=== PATIENT | female | born 1945 | race Caucasian/White ===

== ENCOUNTER → 2018-10-05 09:36 | Outpatient (CLI) | payer OTHER, SELFPAY ==
[2018-10-05 10:06] LABS: Hematocrit 40.6 % (36-46); Hemoglobin 13.3 g/dL (12.0-16.0); Mean Corpuscular HGB Conc 32.7 % (30-36); Mean Corpuscular Hemoglobin 30.3 PG (26-34); Mean Corpuscular Volume 92.5 fL (80-100); Platelet Count 260 X10^3/uL (150-400); Red Blood Cell Count 4.39 X10^6/uL (4.0-5.2); Red Cell Distribution Width 13.8 % (11.6-14.8); White Blood Cell Count 5.1 X10^3/uL (4.5-11.0)
[2018-10-05 10:17] LABS: Hemoglobin A1C% w Est Avg Glu 6.4 % (4.0-6.0)
[2018-10-05 10:38] LABS: Alanine Aminotransferase 27 IU/L (9-52); Albumin 4.2 g/dL (3.5-5.0); Albumin Globulin Ratio 1.6 (1.0-2.8); Alkaline Phosphatase 84 U/L (38-126); Aspartate Aminotransferase 25 IU/L (14-36); Bilirubin Total 1.1 mg/dL (0.2-1.3); Blood Urea Nitrogen 24 mg/dL (7-17); Calcium 9.5 mg/dL (8.4-10.2); Carbon Dioxide 28 mmol/L (22-32); Chloride 105 mmol/L (98-107); Cholesterol 124 mg/dL (140-199); Estimated Glomerular Filt Rate > 60.0 mL/min (>60); Globulin 2.6 g/dL (1.7-4.1); Glucose 110 mg/dL (80-110); HDL Cholesterol 47 mg/dL (40-60); HEMOLYSIS < 15 (0-50); LDL Cholesterol Calculated 48 mg/dL (<100); Potassium 4.6 mmol/L (3.4-5.1); Sodium 143 mmol/L (137-145); Total Protein 6.8 g/dL (6.3-8.2); Triglycerides 143 mg/dL (35-150)
== END ==
PROVIDERS: Family Provider Student in an Organized Health Care Education/Training Program; PCP Family Medicine; Visit Provider Family Medicine
DX: E78.00 Pure hypercholesterolemia, unspecified (principal); E78.2 Mixed hyperlipidemia; I10 Essential (primary) hypertension; I25.10 Atherosclerotic heart disease of native coronary artery without angina pectoris; R73.9 Hyperglycemia, unspecified; Z51.81 Encounter for therapeutic drug level monitoring
CPT/HCPCS: 36415; 80053; 80061; 83036; 85027

== ENCOUNTER → 2018-10-10 11:18 | Outpatient (CLI) | payer OTHER, SELFPAY ==
--- NOTE | 2018-10-10 11:20 | DI.MG.S_ITS ---
BILATERAL DIGITAL SCREENING MAMMOGRAM 3D/2D WITH CAD: 10/10/2018 CLINICAL: Routine screening. Baseline exam. No prior exams were available for comparison. The tissue of both breasts is heterogeneously dense. This may lower the sensitivity of mammography. Current study was also evaluated with a Computer Aided Detection (CAD) system. There is an irregular equal density asymmetry with an indistinct margin in the left breast anterior depth inferior region seen on the mediolateral oblique view only. There is architectural distortion associated with the asymmetry. No other significant masses, calcifications, or other findings are seen in either breast. IMPRESSION: INCOMPLETE: NEEDS ADDITIONAL IMAGING EVALUATION The irregular equal density asymmetry in the left breast is indeterminate. Mediolateral and spot compression views as well as additional views with possible ultrasound are recommended. This exam was interpreted at Station ID: [id number]. NOTE: For mammograms, a report in lay terms will be sent to the patient. Approximately 15% of breast malignancies will not be visualized mammographically. In the management of a palpable breast mass, a negative mammogram must not discourage biopsy of a clinically suspicious lesion. Electronically Signed By: Sebastián williamson/errol:10/10/2018 17:11:41 letter sent: Additional Imaging Needed ACR BI-RADS Category 0: Incomplete [id number]
== END ==
PROVIDERS: PCP Family Medicine; Visit Provider Family Medicine
DX: Z12.31 Encounter for screening mammogram for malignant neoplasm of breast (principal)
CPT/HCPCS: 77063; 77067

== ENCOUNTER → 2018-10-24 12:41 | Outpatient (CLI) | payer OTHER, SELFPAY ==
--- NOTE | 2018-10-24 | DI.MG.S_ITS ---
UNILATERAL LEFT DIGITAL DIAGNOSTIC MAMMOGRAM 3D/2D WITH ADDITIONAL VIEWS: 10/24/2018 CLINICAL: Additional evaluation requested from prior study. Comparison is made to exam dated: 10/10/2018 [facility]. The tissue of left breast is heterogeneously dense. This may lower the sensitivity of mammography. Previously noted irregular equal density asymmetry with an indistinct margin in the left breast anterior depth inferior region seen on the mediolateral oblique view only on comparison screening mammogram resolves with additional views and likely represented superimposition of benign anatomic tissues. IMPRESSION: INCOMPLETE: NEEDS ADDITIONAL IMAGING EVALUATION Previously noted irregular equal density asymmetry with an indistinct margin in the left breast anterior depth inferior region seen on the mediolateral oblique view only on comparison screening mammogram resolves with additional views and likely represented superimposition of benign anatomic tissues. A targeted ultrasound is recommended and will be performed immediately following this exam. This exam was interpreted at Station ID: [id number]. NOTE: For mammograms, a report in lay terms will be sent to the patient. Approximately 15% of breast malignancies will not be visualized mammographically. In the management of a palpable breast mass, a negative mammogram must not discourage biopsy of a clinically suspicious lesion. Electronically Signed By: Jaylon Mo M.D. ecl/:10/24/2018 13:27:54 letter sent: Additional Imaging Needed ACR BI-RADS Category 0: Incomplete [id number]
--- NOTE | 2018-10-24 12:43 | DI.US.S_ITS ---
LIMITED ULTRASOUND OF LEFT BREAST: 10/24/2018 CLINICAL: Patient returns today to evaluate an asymmetry in the left breast. Comparison is made to exams dated: 10/24/2018 mammogram and 10/10/2018 mammogram - [facility]. Real-time and Doppler ultrasound of the left breast lower aspect were performed. [place] scale images of the real-time examination were reviewed. No underlying breast mass or abnormality is identified. There is dense fibroglandular tissue. There is no ultrasound correlate for the previously noted irregular equal density asymmetry with an indistinct margin in the left breast anterior depth inferior region seen on the mediolateral oblique view only on comparison screening mammograms, which also resolved on additional diagnostic mammogram views performed earlier today. IMPRESSION: NEGATIVE There is no sonographic evidence of malignancy in the imaged portions of the lower left breast. Return to annual screening mammography is recommended. The patient is advised to monitor her breasts and to return sooner for re-evaluation should she feel anything grow or change. This exam was interpreted at Station ID: [id number]. Electronically Signed By: Jaylon Mo M.D. ecl/:10/24/2018 16:59:11 letter sent: Normal Exam Ultrasound BI-RADS: 1 Negative
== END ==
PROVIDERS: PCP Family Medicine; Visit Provider Family Medicine
DX: R92.8 Other abnormal and inconclusive findings on diagnostic imaging of breast (principal)
CPT/HCPCS: 76642; 77065; G0279

== ENCOUNTER → 2019-04-23 09:16 | Outpatient (CLI) | payer OTHER, SELFPAY ==
[2019-04-23 11:09] LABS: Alanine Aminotransferase 18 IU/L (9-52); Albumin 4.5 g/dL (3.5-5.0); Albumin Globulin Ratio 1.3 (1.0-2.8); Alkaline Phosphatase 87 U/L (38-126); Aspartate Aminotransferase 30 IU/L (14-36); BUN Creatinine Ratio 25.6 (6-22); Bilirubin Total 1.4 mg/dL (0.2-1.3); Blood Urea Nitrogen 23 mg/dL (7-17); Carbon Dioxide 29 mmol/L (22-32); Chloride 103 mmol/L (98-107); Cholesterol 142 mg/dL (140-199); Estimated Glomerular Filt Rate > 60.0 mL/min (>60); Globulin 3.4 g/dL (1.7-4.1); Glucose 124 mg/dL (80-110); HDL Cholesterol 51 mg/dL (40-60); HEMOLYSIS < 15 (0-50); LDL Cholesterol Calculated 69 mg/dL (<100); Potassium 4.4 mmol/L (3.4-5.1); Sodium 143 mmol/L (137-145); Total Protein 7.9 g/dL (6.3-8.2); Triglycerides 108 mg/dL (35-150)
== END ==
PROVIDERS: PCP Family Medicine; Visit Provider Family Medicine
DX: E78.2 Mixed hyperlipidemia (principal); I10 Essential (primary) hypertension
CPT/HCPCS: 36415; 80053; 80061

== ENCOUNTER → 2019-04-29 10:25 | Outpatient (CLI) | payer OTHER, SELFPAY ==
--- NOTE | 2019-04-29 10:27 | DI.RAD.S_ITS ---
PROCEDURE: XR FOOT RT MIN 3V INDICATIONS: R heel pain TECHNIQUE: 3 views of the foot were acquired. COMPARISON: [facility], , FOOT 3V LEFT, 10/15/2015, 13:38. FINDINGS: Bones: No fractures or dislocations. No suspicious bony lesions. Plantar calcaneal spur. First MTP degeneration. Soft tissues: No tibiotalar joint effusion. Achilles tendon appears normal. IMPRESSION: Plantar calcaneal spur Dictated by: Juan Alberto Sharp M.D. on 04/29/2019 at 12:43 Approved by: Juan Alberto Sharp M.D. on 04/29/2019 at 12:46
== END ==
PROVIDERS: PCP Family Medicine; Visit Provider Family Medicine
DX: M79.671 Pain in right foot (principal); M77.31 Calcaneal spur, right foot
CPT/HCPCS: 73630

== ENCOUNTER → 2019-11-01 10:58 | Outpatient (CLI) | payer MEDICARE, SELFPAY ==
[2019-11-01 12:03] LABS: Add Manual Diff / Slide Review NO; Basophils Absolute Auto 0 /uL (0-100); Basophils Percent Auto 0.9 % (0-2); Eosinophils Absolute Auto 100 /uL (0-450); Hematocrit 40.5 % (36-46); Hemoglobin 13.7 g/dL (12.0-16.0); Lymphocytes Absolute Auto 1300 /uL (1100-4500); Lymphocytes Percent Auto 23.6 % (25-40); Mean Corpuscular HGB Conc 33.8 % (30-36); Mean Corpuscular Hemoglobin 31.2 PG (26-34); Mean Corpuscular Volume 92.2 fL (80-100); Monocytes Absolute Auto 300 /uL (0-900); Monocytes Percent Auto 6.2 % (3-14); Neutrophils Absolute Auto 3700 /uL (1500-7000); Neutrophils Percent Auto 68.3 % (50-75); Platelet Count 266 X10^3/uL (150-400); Red Blood Cell Count 4.39 X10^6/uL (4.0-5.2); Red Cell Distribution Width 13.3 % (11.6-14.8); White Blood Cell Count 5.4 X10^3/uL (4.5-11.0)
[2019-11-01 12:15] LABS: Hemoglobin A1C% w Est Avg Glu 5.9 % (4.0-6.0)
[2019-11-01 12:45] LABS: Alanine Aminotransferase 20 IU/L (<35); Albumin 4.6 g/dL (3.5-5.0); Albumin Globulin Ratio 1.8 (1.0-2.8); Alkaline Phosphatase 96 U/L (38-126); Aspartate Aminotransferase 28 IU/L (14-36); BUN Creatinine Ratio 21.1 (6-22); Bilirubin Total 1.2 mg/dL (0.2-1.3); Blood Urea Nitrogen 19 mg/dL (7-17); Carbon Dioxide 26 mmol/L (22-32); Chloride 106 mmol/L (98-107); Cholesterol 145 mg/dL (140-199); Estimated Glomerular Filt Rate > 60.0 mL/min (>60); Globulin 2.5 g/dL (1.7-4.1); Glucose 118 mg/dL (80-110); HDL Cholesterol 52 mg/dL (40-60); HEMOLYSIS < 15 (0-50); LDL Cholesterol Calculated 60 mg/dL (<100); Potassium 4.5 mmol/L (3.4-5.1); Sodium 142 mmol/L (137-145); Total Protein 7.1 g/dL (6.3-8.2); Triglycerides 165 mg/dL (35-150)
[2019-11-01 13:17] LABS: Thyroid Stimulating Hormone 3.11 uIU/mL (0.47-4.68)
== END ==
PROVIDERS: Family Provider Internal Medicine Cardiovascular Disease; PCP Family Medicine; Visit Provider Family Medicine
DX: E78.2 Mixed hyperlipidemia (principal); I10 Essential (primary) hypertension; R73.9 Hyperglycemia, unspecified; E78.5 Hyperlipidemia, unspecified
CPT/HCPCS: 36415; 80053; 80061; 83036; 84443; 85025

== ENCOUNTER → 2020-05-08 10:17 | Outpatient (CLI) | payer MEDICARE, SELFPAY ==
[2020-05-08 11:19] LABS: Alanine Aminotransferase 17 IU/L (<35); Albumin 4.2 g/dL (3.5-5.0); Albumin Globulin Ratio 1.7 (1.0-2.8); Alkaline Phosphatase 90 U/L (38-126); Aspartate Aminotransferase 26 IU/L (14-36); BUN Creatinine Ratio 21.7 (6-22); Blood Urea Nitrogen 18 mg/dL (7-17); Calcium 9.7 mg/dL (8.4-10.2); Carbon Dioxide 26 mmol/L (22-32); Chloride 109 mmol/L (98-107); Cholesterol 118 mg/dL (140-199); Estimated Glomerular Filt Rate > 60.0 mL/min (>60); Globulin 2.5 g/dL (1.7-4.1); Glucose 110 mg/dL (80-110); HDL Cholesterol 50 mg/dL (40-60); HEMOLYSIS < 15 (0-50); LDL Cholesterol Calculated 46 mg/dL (<100); Potassium 4.4 mmol/L (3.4-5.1); Sodium 142 mmol/L (137-145); Total Protein 6.7 g/dL (6.3-8.2); Triglycerides 108 mg/dL (35-150)
== END ==
PROVIDERS: Family Medicine; Family Provider Internal Medicine Cardiovascular Disease; PCP Family Medicine; Referring Provider Family Medicine; Visit Provider Family Medicine
DX: E78.2 Mixed hyperlipidemia (principal); I10 Essential (primary) hypertension; M79.604 Pain in right leg; R73.9 Hyperglycemia, unspecified
CPT/HCPCS: 36415; 80053; 80061

== ENCOUNTER → 2020-05-11 09:56 | Outpatient (CLI) | payer MEDICARE, SELFPAY ==
--- NOTE | 2020-05-11 09:59 | DI.US.S_ITS ---
PROCEDURE: US PERIPH VENOUS LOW EXTREM RT INDICATIONS: Clinical concern for DVT, RLE pain TECHNIQUE: Real-time imaging, as well as color and pulse Doppler interrogation, were performed of the lower extremity deep veins from the inguinal ligament to the popliteal fossa. COMPARISON: [facility], , PVE UNILATERAL LEFT, 03/24/2015, 17:06. FINDINGS: The common femoral, femoral and popliteal veins are normally compressible, and free of intraluminal thrombus. Color and pulse Doppler demonstrate normal phasic intraluminal flow. There is normal augmentation response to distal compression maneuver. IMPRESSION: Negative for deep venous thrombosis. Dictated by: Dakotah Todd M.D. on 05/11/2020 at 9:40 Approved by: Dakotah Todd M.D. on 05/11/2020 at 9:41
== END ==
PROVIDERS: Family Provider Internal Medicine Cardiovascular Disease; PCP Family Medicine; Referring Provider Family Medicine; Visit Provider Family Medicine
DX: M79.604 Pain in right leg (principal)
CPT/HCPCS: 93971

== ENCOUNTER 2020-10-24 09:51 | Emergency (ER) | payer MEDICARE, SELFPAY ==
[2020-10-24] VITALS (10 sets, daily range): BP systolic 101–159; BP diastolic 56–68; PULSE 51–64; RESP 13–33; O2SAT 83–98; BMI 33.5
--- NOTE | 2020-10-24 10:17 | DI.CT.S_ITS ---
PROCEDURE: CT ABDOMEN PELVIS W CON INDICATIONS: RLQ pain R flank pain r/o stone versus appi TECHNIQUE: After the administration of intravenous contrast, 5 mm thick sections acquired from the diaphragm to the symphysis. 5 mm coronal and sagittal reformats were acquired. For radiation dose reduction, the following was used: automated exposure control, adjustment of mA and/or kV according to patient size. COMPARISON: None. FINDINGS: Image quality: Excellent. ABDOMEN: Lung bases: Lung bases are clear. Heart size is normal. Solid organs: Liver is normal in size and enhancement. Gallbladder is unremarkable . No intrahepatic biliary ductal dilatation. The central portion of the common bile duct measures up to 1.3 cm in diameter. There is a questionable filling defect near the MP lobe (series 4/image 30). Pancreas enhances normally. Spleen is normal in size and enhancement. No adrenal nodules. The left kidney demonstrates normal size and enhancement. No left hydronephrosis or nephrolithiasis. The right kidney demonstrates severe hydronephrosis with a slightly delayed right nephrogram. Trace perinephric fat stranding. The right ureter is dilated throughout the superior 2/3. The inferior 3rd is decompressed. No discrete calculus is visualized within the ureter. There is moderate right periureteral fat stranding. Peritoneum and bowel: Bowel loops demonstrate normal wall thickness and caliber. The appendix is thin walled. There are scattered colonic diverticula. No evidence for diverticulitis. No free fluid or air. Nodes and vessels: No retroperitoneal or mesenteric adenopathy by size criteria. Aorta and inferior vena cava are normal in size. There are scattered atheromatous calcifications throughout the aorta and iliac arteries bilaterally. Miscellaneous: No ventral hernias. PELVIS: Genitourinary: Trace fluid is present within the bladder. There is questionable posterior inferior bladder wall thickening versus sludge (series 2/image 80 and series 4/image 39). Miscellaneous: No inguinal adenopathy. There are small bilateral fat containing inguinal hernias.. Bones: No suspicious bony lesions. No vertebral body compression fractures. IMPRESSION: 1. Severe right hydronephrosis and dilatation of the upper 2/3 of the right ureter without definite visualized obstructing stone. Differential considerations include recently passed stone (no bladder calculi noted), ureteral mass, or extrinsic compression. Ureteral mass is favored as no discrete external mass is noted adjacent to the ureter. 2. Questionable sludge versus thickening within the inferior posterior bladder wall . Urothelial neoplasm cannot be excluded. Consider CT IVP or CT cystogram or direct visualization by urology. These findings were discussed with STEPHON Winslow at 10:21 a.m. On October 24, 2020. 3. Normal appendix. Diverticulosis. No acute diverticulitis. 4. Dilatation of the central common bile duct with questionable central filling defect which may represent sludge or stone. No intrahepatic biliary ductal dilatation. Please correlate with laboratory values. If further characterization is warranted, MRCP or ERCP could be used. Dictated by: Armida Joe M.D. on 10/24/2020 at 10:19 Approved by: Armida Joe M.D. on 10/24/2020 at 10:28
--- NOTE | 2020-10-24 10:18 | ED.ABDPAIN ---
HPI - Abdominal Pain General Chief Complaint: Urogenital-Female Stated Complaint: kidney infection/ Time Seen by Provider: 10/24/20 10:03 Source: patient and family Mode of arrival: Ambulatory Limitations: no limitations History of Present Illness HPI narrative: 75yo female presents to the ED for right flank pain. She states this started approximately about a week ago. She was seen and evaluated in the walk-in clinic yesterday and started on ciprofloxacin for concerns about pyelonephritis. At the visit she had blood and leukocytes in her POC urine dip, she did not provide enough urine to send for culture. Today she woke up and noticed that the pain has radiated to her right lower quadrant. She has taken 2 doses of ciprofloxacin. She also notices when she waits that she feels like there is a lump of soft tissue in the area. She denies any other symptoms such as fever, nausea, vomiting, chest pain, shortness of breath, dizziness, or any other concerns. Related Data Home Medications Medication Instructions Recorded Confirmed ASPIRIN (Aspir-Low) 81 mg PO QDAY #0 05/08/11 05/11/20 atorvastatin [Lipitor] 80 mg PO QDAY #0 05/08/11 05/11/20 metoprolol tartrate 25 mg tablet 25 mg PO BID 10/08/18 05/11/20 Previous Rx's Medication Instructions Recorded lisinopril 5 mg tablet 5 mg PO Q DAY #90 tab 06/28/20 ciprofloxacin HCl 500 mg tablet 500 mg PO BID 7 Days #14 tab 10/23/20 Allergies Allergy/AdvReac Type Severity Reaction Status Date / Time No Known Drug Allergies Allergy Verified 10/24/20 10:00 Review of Systems Review of Systems Narrative: REVIEW OF SYSTEMS: GENERAL: Denies fever. HENT: No head trauma. CARDIOVASCULAR: No chest pain. RESPIRATORY: No cough. GASTROINTESTINAL: Reports right lower quadrant pain, see HPI. GENITOURINARY: Reports right flank pain, see HPI. MUSCULOSKELETAL: No trauma. INTEGUMENTARY: No rash. NEURO: No numbness or tingling. Patient History Medical History Coronary artery disease Depression Essential hypertension History of myocardial infarction Mixed hyperlipidemia Pre-diabetes Social History Smoking Status: Never smoker alcohol intake: never Smoking Status: Never smoker alcohol intake frequency: 0-2 drinks per day Substance Use Type: does not use Exam Initial Vital Signs Initial Vital Signs: Vital Signs Pulse Rate 64 10/24/20 10:00 Respiratory Rate 18 10/24/20 10:00 Blood Pressure 159/67 H 10/24/20 10:00 Pulse Oximetry 96 10/24/20 10:00 PHYSICAL EXAMINATION: GENERAL: Awake and alert. HENT: Normocephalic, atraumatic. Hearing intact. Oral mucosa is pink and moist. EYES: Conjunctiva pink, sclera white, no periorbital swelling. CARDIOVASCULAR: S1 and S2 sounds normal. Regular rate and rhythm, no murmurs, clicks, or bruits. No pedal edema. RESPIRATORY: Normal respiratory rate, trachea midline, airway patent. No stridor, nasal flaring or accessory muscle use. Lungs are clear in all vega without wheeze, rhonchi, or crackles. GASTROINTESTINAL: Bowel sounds normoactive. Abdomen is soft, right lower quadrant pain, no rebound tenderness. No organomegaly, no palpable masses. GENITALURINARY: Right flank tenderness. MUSCULOSKELETAL: Normal gait and coordination. Equal tone and mass bilaterally. EXTREMITIES: CMS intact, no pedal edema. SKIN: Warm, dry, soft, appropriate color for ethnicity. No lesions, rashes, or wounds to visualized areas. NEURO: Alert and Oriented X 3. Good coordination. No ataxia, or sensory deficits, or cognitive issues. PSYCH: Appropriate affect and mood. Course Orders Ordered: ED Orders 10/24/20 10:04 Complete Blood Count AUTO DIFF Stat Comprehensive Metabolic Panel Stat Lipase Stat 10/24/20 10:17 CT abdomen pelvis w con Stat Sodium Chloride (Normal Saline 0.9%) 1,000 mls @ 1,000 mls/hr IV BOLUS ONE Stop: 10/24/20 11:16 Vital Signs Vital signs: Vital Signs - 8 hr 10/24/20 10:00 Pulse Rate 64 Respiratory Rate 18 Blood Pressure 159/67 H Pulse Oximetry 96 Discharge Plan Departure Prescriptions: No Action metoprolol tartrate 25 mg tablet 25 mg PO BID RF: 0 ciprofloxacin HCl 500 mg tablet 500 mg PO BID 7 Days Qty: 14 RF: 0 ASPIRIN (Aspir-Low) 81 mg PO QDAY Qty: 0 RF: 0 atorvastatin [Lipitor] 80 MG tablet 80 mg PO QDAY Qty: 0 RF: 0 lisinopril 5 mg tablet 5 mg PO Q DAY Qty: 90 RF: 1
[2020-10-24] MEDS: SODIUM CHLORIDE 0.9% 1,000 ML 1000 ML IV (10:33)
[2020-10-24 10:35] LABS: Add Manual Diff / Slide Review NO; Basophils Absolute Auto 0 /uL (0-100); Basophils Percent Auto 0.6 % (0-2); Eosinophils Absolute Auto 100 /uL (0-450); Eosinophils Percent Auto 2.1 % (2-4); Hematocrit 40.2 % (36-46); Hemoglobin 13.2 g/dL (12.0-16.0); Lymphocytes Absolute Auto 1200 /uL (1100-4500); Lymphocytes Percent Auto 24.2 % (25-40); Mean Corpuscular Hemoglobin 30.1 PG (26-34); Mean Corpuscular Volume 91.4 fL (80-100); Monocytes Absolute Auto 600 /uL (0-900); Monocytes Percent Auto 11.5 % (3-14); Neutrophils Absolute Auto 3100 /uL (1500-7000); Neutrophils Percent Auto 61.6 % (50-75); Platelet Count 242 X10^3/uL (150-400); Red Cell Distribution Width 13.5 % (11.6-14.8); White Blood Cell Count 5.1 X10^3/uL (4.5-11.0)
--- NOTE | 2020-10-24 10:41 | ED_ITS ---
HPI - Abdominal Pain <STEPHON Winslow - Last Filed: 10/24/20 16:06> General Chief Complaint: Urogenital-Female Stated Complaint: kidney infection/ Time Seen by Provider: 10/24/20 10:03 Source: patient and family Mode of arrival: Ambulatory Limitations: no limitations History of Present Illness HPI narrative: 75-year-old female presents to the emergency department for right lower quadrant pain. She was seen and evaluated in the walk-in clinic yesterday for right flank pain which she said started approximately week ago. Patient had blood and leukocytes in her POC urine dip, she was started on ciprofloxacin yesterday, she has had 2 doses since then. She was unable to provide enough urine for culture at that time. She states this morning she woke up and noticed that the pain radiated to her right lower quadrant. She has had intermittent dysuria over the past week which has resolved. Patient denies any other symptoms such as fevers, chills, nausea, vomiting, diarrhea, chest pain, shortness of breath, cough, or any other concerns. She denies any history of renal calculi or renal infections. Related Data Home Medications Medication Instructions Recorded Confirmed ASPIRIN (Aspir-Low) 81 mg PO QDAY #0 05/08/11 05/11/20 atorvastatin [Lipitor] 80 mg PO QDAY #0 05/08/11 05/11/20 metoprolol tartrate 25 mg tablet 25 mg PO BID 10/08/18 05/11/20 Previous Rx's Medication Instructions Recorded lisinopril 5 mg tablet 5 mg PO Q DAY #90 tab 06/28/20 ciprofloxacin HCl 500 mg tablet 500 mg PO BID 7 Days #14 tab 10/23/20 ondansetron 4 mg PO Q6H PRN #14 tab 10/24/20 oxycodone-acetaminophen [Percocet] 1 tab PO Q4-6H PRN #14 tab 10/24/20 Allergies Allergy/AdvReac Type Severity Reaction Status Date / Time No Known Drug Allergies Allergy Verified 10/24/20 10:00 Review of Systems <STEPHON Winslow - Last Filed: 10/24/20 16:06> Review of Systems Narrative: REVIEW OF SYSTEMS: GENERAL: Denies fever. HENT: No head trauma. CARDIOVASCULAR: No chest pain. RESPIRATORY: No shortness of breath or cough. GASTROINTESTINAL: Complains of right lower quadrant abdominal pain, see HPI. GENITOURINARY: Right flank pain, see HPI. MUSCULOSKELETAL: No pain. INTEGUMENTARY: No rash. NEURO: No numbness or tingling. PSYCH: No behavior or mood changes. Patient History <STEPHON Winslow - Last Filed: 10/24/20 16:06> Medical History Coronary artery disease Depression Essential hypertension History of myocardial infarction Mixed hyperlipidemia Pre-diabetes Social History Smoking Status: Never smoker alcohol intake: never Smoking Status: Never smoker alcohol intake frequency: 0-2 drinks per day Substance Use Type: does not use Exam <STEPHON Winslow - Last Filed: 10/24/20 16:06> Initial Vital Signs Initial Vital Signs: Vital Signs Pulse Rate 64 10/24/20 10:00 Respiratory Rate 18 10/24/20 10:00 Blood Pressure 159/67 H 10/24/20 10:00 Pulse Oximetry 96 10/24/20 10:00 PHYSICAL EXAMINATION: GENERAL: Awake and alert, answers questions probably. HENT: Normocephalic, atraumatic. Hearing intact. Oral mucosa is pink and moist. EYES: Conjunctiva pink, sclera white, no periorbital swelling. CARDIOVASCULAR: S1 and S2 sounds normal. Regular rate and rhythm, no murmurs, clicks, or bruits. No pedal edema. RESPIRATORY: Normal respiratory rate, trachea midline, airway patent. No stridor, nasal flaring or accessory muscle use. Lungs are clear in all vega without wheeze, rhonchi, or crackles. GASTROINTESTINAL: Bowel sounds normoactive. Abdomen is soft, right lower quadrant tenderness, no rebound tenderness.. No organomegaly, no palpable masses. GENITALURINARY: Right flank tenderness. MUSCULOSKELETAL: Normal gait and coordination. Equal tone and mass bilaterally. EXTREMITIES: CMS intact, no pedal edema. SKIN: Warm, dry, soft, appropriate color for ethnicity. No lesions, rashes, or wounds to visualized areas. NEURO: Alert and Oriented X 3. Good coordination. No ataxia, or sensory deficits, or cognitive issues. PSYCH: Appropriate affect and mood. <Gian Dent DO - Last Filed: 10/24/20 16:28> Initial Vital Signs Initial Vital Signs: Vital Signs Pulse Rate 64 10/24/20 10:00 Respiratory Rate 18 10/24/20 10:00 Blood Pressure 159/67 H 10/24/20 10:00 Pulse Oximetry 96 10/24/20 10:00 Course <STEPHON Winslow - Last Filed: 10/24/20 16:06> Course Course Narrative: 1230: Spoke with Urology, Dr. Gonzales. Discussed patient's CT findings and laboratory work. Stated that she needed close follow-up within the week, okay for discharge. Discussed continuing her Cipro and managing pain control. Orders Ordered: ED Orders 10/24/20 10:17 CT abdomen pelvis w con Stat 10/24/20 10:20 Complete Blood Count AUTO DIFF Stat Comprehensive Metabolic Panel Stat Lipase Stat 10/24/20 11:43 Creatinine Urine Random Stat Sodium Urine Random Stat 10/24/20 11:46 Urine Microscopic Stat 10/24/20 12:00 COVID19 Stat Discontinued Medications Sodium Chloride (Normal Saline 0.9%) 1,000 mls @ 1,000 mls/hr IV BOLUS ONE Stop: 10/24/20 11:16 Last Infusion: 10/24/20 12:48 Dose: 0 mls/hr Documented by: Infusion: 10/24/20 11:38 Dose: 1,000 mls/hr Documented by: Infusion: 10/24/20 11:00 Dose: 0 mls/hr Documented by: Admin: 10/24/20 10:33 Dose: 1,000 mls/hr Documented by: SHRUTI Morphine Sulfate (Morphine 4 Mg/Ml Inj) 4 mg IV NOW ONE Stop: 10/24/20 11:40 Last Admin: 10/24/20 11:51 Dose: 2 mg Documented by: CHERYL Ondansetron HCl (Ondansetron 4 Mg/2 Ml Inj) 4 mg IV NOW ONE Stop: 10/24/20 11:40 Last Admin: 10/24/20 11:51 Dose: 4 mg Documented by: CHERYL Oxycodone/Acetaminophen (Oxycodone/Acetaminophen 5/325 Tablet) 1 tab PO NOW ONE Stop: 10/24/20 12:33 Last Admin: 10/24/20 12:48 Dose: 1 tab Documented by: CALVIN Reevaluation(s) Reevaluation #1: Patient staffed with Dr. Dent, discussed test, test results, plan of care. Vital Signs Vital signs: Vital Signs - 8 hr 10/24/20 10:00 10/24/20 10:26 10/24/20 10:29 Pulse Rate 64 53 L 52 L Respiratory Rate 18 18 Blood Pressure 159/67 H 103/59 L Pulse Oximetry 96 96 96 10/24/20 10:30 10/24/20 11:12 10/24/20 11:30 Pulse Rate 51 L 62 61 Respiratory Rate 13 33 H 16 Blood Pressure 101/56 L Pulse Oximetry 96 83 L 97 10/24/20 12:00 10/24/20 12:30 10/24/20 13:00 Pulse Rate 54 L 56 L 57 L Respiratory Rate 17 15 17 Blood Pressure Pulse Oximetry 95 98 95 10/24/20 13:06 Pulse Rate 57 L Respiratory Rate 13 Blood Pressure 154/68 H Pulse Oximetry 96 <Gian Dent, DO - Last Filed: 10/24/20 16:28> Orders Ordered: ED Orders 10/24/20 10:17 CT abdomen pelvis w con Stat 10/24/20 10:20 Complete Blood Count AUTO DIFF Stat Comprehensive Metabolic Panel Stat Lipase Stat 10/24/20 11:43 Creatinine Urine Random Stat Sodium Urine Random Stat 10/24/20 11:46 Urine Microscopic Stat 10/24/20 12:00 COVID19 Stat Discontinued Medications Sodium Chloride (Normal Saline 0.9%) 1,000 mls @ 1,000 mls/hr IV BOLUS ONE Stop: 10/24/20 11:16 Last Infusion: 10/24/20 12:48 Dose: 0 mls/hr Documented by: Infusion: 10/24/20 11:38 Dose: 1,000 mls/hr Documented by: Infusion: 10/24/20 11:00 Dose: 0 mls/hr Documented by: Admin: 10/24/20 10:33 Dose: 1,000 mls/hr Documented by: SHRUTI Morphine Sulfate (Morphine 4 Mg/Ml Inj) 4 mg IV NOW ONE Stop: 10/24/20 11:40 Last Admin: 10/24/20 11:51 Dose: 2 mg Documented by: CHERYL Ondansetron HCl (Ondansetron 4 Mg/2 Ml Inj) 4 mg IV NOW ONE Stop: 10/24/20 11:40 Last Admin: 10/24/20 11:51 Dose: 4 mg Documented by: CHERYL Oxycodone/Acetaminophen (Oxycodone/Acetaminophen 5/325 Tablet) 1 tab PO NOW ONE Stop: 10/24/20 12:33 Last Admin: 10/24/20 12:48 Dose: 1 tab Documented by: CALVIN Vital Signs Vital signs: Vital Signs - 8 hr 10/24/20 10:00 10/24/20 10:26 10/24/20 10:29 Pulse Rate 64 53 L 52 L Respiratory Rate 18 18 Blood Pressure 159/67 H 103/59 L Pulse Oximetry 96 96 96 10/24/20 10:30 10/24/20 11:12 10/24/20 11:30 Pulse Rate 51 L 62 61 Respiratory Rate 13 33 H 16 Blood Pressure 101/56 L Pulse Oximetry 96 83 L 97 10/24/20 12:00 10/24/20 12:30 10/24/20 13:00 Pulse Rate 54 L 56 L 57 L Respiratory Rate 17 15 17 Blood Pressure Pulse Oximetry 95 98 95 10/24/20 13:06 Pulse Rate 57 L Respiratory Rate 13 Blood Pressure 154/68 H Pulse Oximetry 96 MDM - Abdominal Pain <STEPHON Winslow - Last Filed: 10/24/20 16:06> Medical Records Attestation: I reviewed the patient's medical records. Lab Data Attestation: I reviewed the patient's lab results. Result diagrams: 10/24/20 10:20 10/24/20 10:20 Labs: Lab Results 10/24/20 10/24/20 10/24/20 Range/Units 10:20 10:20 12:00 WBC 5.1 (4.5-11.0) X10^3/uL RBC 4.40 (4.0-5.2) X10^6/uL Hgb 13.2 (12.0-16.0) g/dL Hct 40.2 (36-46) % MCV 91.4 (80-100) fL MCH 30.1 (26-34) PG MCHC 33.0 (30-36) % RDW 13.5 (11.6-14.8) % Plt Count 242 (150-400) X10^3/uL Neut % (Auto) 61.6 (50-75) % Lymph % (Auto) 24.2 L (25-40) % [place] % (Auto) 11.5 (3-14) % Eos % (Auto) 2.1 (2-4) % Baso % (Auto) 0.6 (0-2) % Neut # (Auto) 3100 (5149-9236) /uL Lymph # (Auto) 1200 (0258-3156) /uL [place] # (Auto) 600 (0-900) /uL Eos # (Auto) 100 (0-450) /uL Baso # (Auto) 0 (0-100) /uL Sodium 139 (137-145) mmol/L Potassium 3.8 (3.4-5.1) mmol/L Chloride 106 (98-107) mmol/L Carbon Dioxide 26 (22-32) mmol/L BUN 28 H (7-17) mg/dL Creatinine 1.19 H (0.52-1.04) mg/dL Estimated GFR 44.1 L (>60) mL/min BUN/Creatinine Ratio 23.5 H (6-22) Glucose 161 H (80-110) mg/dL Calcium 9.3 (8.4-10.2) mg/dL Total Bilirubin 0.8 (0.2-1.3) mg/dL AST 25 (14-36) IU/L ALT 19 (<35) IU/L Alkaline Phosphatase 85 (38-126) U/L Total Protein 7.1 (6.3-8.2) g/dL Albumin 4.0 (3.5-5.0) g/dL Globulin 3.1 (1.7-4.1) g/dL Albumin/Globulin Ratio 1.3 (1.0-2.8) Lipase 82 (23-300) U/L COVID-19 PCR Negative (Negative) Imaging Data CT scan - abdomen/pelvis: Radiologist's Impression: [address] [id number] Scan ReportSigned Patient: Raisa Thomas AMR#: [id number]: 4Acct:[id number]/Sex: 75 / FDate of Service: 10/24/20Loc: EDAccession Number: [id number] Procedure: CT abdomen pelvis w con Ordering Provider: Chelsea Frey PROCEDURE: CT ABDOMEN PELVIS W CON INDICATIONS: RLQ pain R flank pain r/o stone versus appi TECHNIQUE: After the administration of intravenous contrast, 5 mm thick sections acquired from the diaphragm to the symphysis. 5 mm coronal and sagittal reformats were acquired. For radiation dose reduction, the following was used: automated exposure control, adjustment of mA and/or kV according to patient size. COMPARISON: None. FINDINGS: Image quality: Excellent. ABDOMEN: Lung bases: Lung bases are clear. Heart size is normal. Solid organs: Liver is normal in size and enhancement. Gallbladder is unremarkable . No intrahepatic biliary ductal dilatation. The central portion of the common bile duct measures up to 1.3 cm in diameter. There is a questionable filling defect near the MP lobe (series 4/image 30). Pancreas enhances normally. Spleen is normal in size and enhancement. No adrenal nodules. The left kidney demonstrates normal size and enhancement. No left hydronephrosis or nephrolithiasis. The right kidney demonstrates severe hydronephrosis with a slightly delayed right nephrogram. Trace perin ephric fat stranding. The right ureter is dilated throughout the superior 2/3. The inferior 3rd is decompressed. No discrete calculus is visualized within the ureter. There is moderate right periureteral fat stranding. Peritoneum and bowel: Bowel loops demonstrate normal wall thickness and ca liber. The appendix is thin walled. There are scattered colonic diverticula. No evidence for diverticulitis. No free fluid or air. Nodes and vessels: No retroperitoneal or mesenteric adenopathy by size criteria. Aorta and inferior vena cava are normal in size. There are scattered atheromatous calcifications throughout the aorta and iliac arteries bilaterally. Miscellaneous: No ventral hernias. PELVIS: Genitourinary: Trace fluid is present within the bladder. There is questio nable posterior inferior bladder wall thickening versus sludge (series 2/image 80 and series 4/image 39). Miscellaneous: No inguinal adenopathy. There are small bilateral fat containing inguinal hernias.. Bones: No suspicious bony lesions. No vertebral body compression fractures. IMPRESSION: 1. Severe right hydronephrosis and dilatation of the upper 2/3 of the right ureter without definite visualized obstructing stone. Differential considerations include recently passed stone (no bladder calculi noted), ureteral mass, or extrinsic compression. Ureteral mass is favored as no discrete external mass is noted adjacent to the ureter. 2. Questionable sludge versus thickening within the inferior posterior bladder wall . Urothelial neoplasm cannot be excluded. Consider CT IVP or CT cystogram or direct visualization by urology. These findings were discussed with STEPHON Winslow at 10:21 a.m. On October 24, 2020. 3. Normal appendix. Diverticulosis. No acute diverticulitis. 4. Dilatation of the central common bile duct with questionable central filling defect which may represent sludge or stone. No intrahepatic biliary ductal dilatation. Please correlate with laboratory values. If further characterization is warranted, MRCP or ERCP could be used. Dictated by: Armida Joe M.D. on 10/24/2020 at 10:19 Approved by: Armida Joe M.D. on 10/24/2020 at 10:28 MDM Narrative Medical decision making narrative: 75-year-old female presenting to the ED for right flank pain for the past week. Ureteral outlet obstruction seen on CT with worsening renal function. Differential includes translucent mass versus translucent renal stone versus stricture. I spoke with urologist Dr. Gonzales who suggested follow-up in the next week. Discussed that patient does not meet criteria for transfer admission at this time. Patient's pain was managed with Percocet. She is encouraged to return emergency department for any new or worsening symptoms. She was encouraged to continue Cipro due to findings of bacterial infection in urine yesterday. Patient had a very small sample and further testing was limited both on samples provided yesterday and today. She is hemodynamically stable, not febrile and not tachycardic. She was encouraged to return to the ED for any new or worsening symptoms. I discussed with patient that she is to call Urology as soon as possible tomorrow morning to schedule an appointment. She agreed to plan of care verbalized understanding. <Gian Dent, DO - Last Filed: 10/24/20 16:28> Lab Data Labs: Lab Results 10/24/20 10/24/20 10/24/20 Range/Units 10:20 10:20 12:00 WBC 5.1 (4.5-11.0) X10^3/uL RBC 4.40 (4.0-5.2) X10^6/uL Hgb 13.2 (12.0-16.0) g/dL Hct 40.2 (36-46) % MCV 91.4 (80-100) fL MCH 30.1 (26-34) PG MCHC 33.0 (30-36) % RDW 13.5 (11.6-14.8) % Plt Count 242 (150-400) X10^3/uL Neut % (Auto) 61.6 (50-75) % Lymph % (Auto) 24.2 L (25-40) % [place] % (Auto) 11.5 (3-14) % Eos % (Auto) 2.1 (2-4) % Baso % (Auto) 0.6 (0-2) % Neut # (Auto) 3100 (8311-1366) /uL Lymph # (Auto) 1200 (2295-6273) /uL [place] # (Auto) 600 (0-900) /uL Eos # (Auto) 100 (0-450) /uL Baso # (Auto) 0 (0-100) /uL Sodium 139 (137-145) mmol/L Potassium 3.8 (3.4-5.1) mmol/L Chloride 106 (98-107) mmol/L Carbon Dioxide 26 (22-32) mmol/L BUN 28 H (7-17) mg/dL Creatinine 1.19 H (0.52-1.04) mg/dL Estimated GFR 44.1 L (>60) mL/min BUN/Creatinine Ratio 23.5 H (6-22) Glucose 161 H (80-110) mg/dL Calcium 9.3 (8.4-10.2) mg/dL Total Bilirubin 0.8 (0.2-1.3) mg/dL AST 25 (14-36) IU/L ALT 19 (<35) IU/L Alkaline Phosphatase 85 (38-126) U/L Total Protein 7.1 (6.3-8.2) g/dL Albumin 4.0 (3.5-5.0) g/dL Globulin 3.1 (1.7-4.1) g/dL Albumin/Globulin Ratio 1.3 (1.0-2.8) Lipase 82 (23-300) U/L COVID-19 PCR Negative (Negative) Discharge Plan Departure Patient Disposition: Home Clinical Impression: Dilatation of ureter Hydronephrosis Qualifiers: Hydronephrosis type: unspecified Qualified Code(s): N13.30 - Unspecified hydro nephrosis Instructions: DI for Hydronephrosis-Adult Activity Restrictions/Additional Instructions: Thank you for entrusting me with your care today. As discussed, you have swelling around your kidney, this is called severe right hydronephrosis and dilation of your right ureter. This is most likely caused by a blockage of some sort. There is also questionable sludge versus thickening in the inferior posterior bladder wall. I spoke with urologist Dr. Gonzales from [place], he recommends calling the office in [place] or Dr. Juares tomorrow to schedule follow-up as soon as possible. Continue on the ciprofloxacin. You have been prescribed a narcotic medication, this medication can make you drowsy. Do not drive while using this medication or perform activities that requ deuce mental alertness. These medications can also make you constipated, please use [id number] docusate sodium as needed for constipation. Do not take Tylenol with this medication as there was ordered Tylenol and. I have also prescribed you do insert trying to help with nausea that comes from taking narcotic medication. These medications were sent to [facility] in [place]. Do not take any more ibuprofen. Return emergency department for any new or worsening symptoms such as severe pain, uncontrollable vomiting, high fevers, any other concerns. Prescriptions: New oxycodone-acetaminophen [Percocet] 5-325 mg tablet 1 tab PO Q4-6H PRN (Reason: pain) Qty: 14 RF: 0 ondansetron 4 mg tablet,disintegrating 4 mg PO Q6H PRN (Reason: nausea and vomiting) Qty: 14 RF: 0 No Action metoprolol tartrate 25 mg tablet 25 mg PO BID RF: 0 ciprofloxacin HCl 500 mg tablet 500 mg PO BID 7 Days Qty: 14 RF: 0 ASPIRIN (Aspir-Low) 81 mg PO QDAY Qty: 0 RF: 0 atorvastatin [Lipitor] 80 MG tablet 80 mg PO QDAY Qty: 0 RF: 0 lisinopril 5 mg tablet 5 mg PO Q DAY Qty: 90 RF: 1 Referrals: Janna Peralta MD [Primary Care Provider] - <Gian Dent DO - Last Filed: 10/24/20 16:28> Cosign ED Attending Cosignature Attestation: I was immediately available in the department for consultation. This documentation has been reviewed and I agree with assessment and plan. Supervised by Gian Dent DO
[2020-10-24 10:47] LABS: Alanine Aminotransferase 19 IU/L (<35); Albumin Globulin Ratio 1.3 (1.0-2.8); Alkaline Phosphatase 85 U/L (38-126); Aspartate Aminotransferase 25 IU/L (14-36); BUN Creatinine Ratio 23.5 (6-22); Bilirubin Total 0.8 mg/dL (0.2-1.3); Blood Urea Nitrogen 28 mg/dL (7-17); Calcium 9.3 mg/dL (8.4-10.2); Carbon Dioxide 26 mmol/L (22-32); Chloride 106 mmol/L (98-107); Estimated Glomerular Filt Rate 44.1 mL/min (>60); Globulin 3.1 g/dL (1.7-4.1); Glucose 161 mg/dL (80-110); HEMOLYSIS < 15 (0-50); Lipase 82 U/L (23-300); Potassium 3.8 mmol/L (3.4-5.1); Sodium 139 mmol/L (137-145); Total Protein 7.1 g/dL (6.3-8.2)
[2020-10-24] MEDS: ONDANSETRON 4 MG/2 ML INJ IV (11:51)
[2020-10-24] MEDS: MORPHINE 4 MG/ML INJ IV (11:51)
[2020-10-24 12:26] LABS: COVID19 -Nasal RAPID Negative (Negative)
[2020-10-24] MEDS: OXYCODONE/ACETAMINOPHEN 5/325 TABLET 1 TAB PO (12:48)
== END 2020-10-24 13:39 | disposition home or self-care (01) ==
PROVIDERS: Emergency Medicine; Emergency Provider Nurse Practitioner; Family Provider Internal Medicine Cardiovascular Disease; PCP Family Medicine
DX: N28.82 Megaloureter (principal); N13.30 Unspecified hydronephrosis; Z79.82 Long term (current) use of aspirin; I25.10 Atherosclerotic heart disease of native coronary artery without angina pectoris; I10 Essential (primary) hypertension; I25.2 Old myocardial infarction; E78.5 Hyperlipidemia, unspecified; R73.03 Prediabetes; Z20.828 Contact with and (suspected) exposure to other viral communicable diseases
CPT/HCPCS: 36415; 74177; 80053; 83690; 85025; 87635; 96361; 96374; 96375; 99283; 99284; J2270; J2405; Q9967

== ENCOUNTER → 2020-10-30 08:13 | Outpatient (CLI) | payer MEDICARE, SELFPAY ==
--- NOTE | 2020-10-30 08:15 | DI.MG.S_ITS ---
BILATERAL DIGITAL SCREENING MAMMOGRAM 3D/2D WITH CAD: 10/30/2020 CLINICAL: Routine screening. Comparison is made to exams dated: 10/24/2018 mammogram and 10/10/2018 mammogram - [facility]. The tissue of both breasts is heterogeneously dense. This may lower the sensitivity of mammography. Current study was also evaluated with a Computer Aided Detection (CAD) system. There are calcifications in both breasts. No significant masses, calcifications, or other findings are seen in either breast. There has been no significant interval change. IMPRESSION: BENIGN There is no mammographic evidence of malignancy. A 1 year screening mammogram is recommended. This exam was interpreted at Station ID: [id number]. NOTE: For mammograms, a report in lay terms will be sent to the patient. Approximately 15% of breast malignancies will not be visualized mammographically. In the management of a palpable breast mass, a negative mammogram must not discourage biopsy of a clinically suspicious lesion. Electronically Signed By: Dayton White M.D. at/:11/01/2020 07:52:45 letter sent: Normal Exam ACR BI-RADS Category 2: Benign Finding(s) 3342F
== END ==
PROVIDERS: Family Provider Internal Medicine Cardiovascular Disease; PCP Family Medicine; Referring Provider Family Medicine; Visit Provider Family Medicine
DX: Z12.31 Encounter for screening mammogram for malignant neoplasm of breast (principal)
CPT/HCPCS: 77063; 77067

== ENCOUNTER → 2020-11-04 09:29 | Outpatient (CLI) | payer MEDICARE, SELFPAY ==
--- NOTE | 2020-11-04 09:30 | DI.CT.S_ITS ---
PROCEDURE: CT ABDOMEN PELVIS WO/W CON INDICATIONS: Hydronephrosis TECHNIQUE: Optional 5 mm thick noncontrast images acquired from the diaphragm to the symphysis pubis. After the administration of intravenous contrast, 5 mm thick images acquired from the diaphragm to the symphysis pubis after a 10-minute delay. 2 mm thick coronal and sagittal reformats were then performed of the kidneys and ureters. For radiation dose reduction, the following was used: automated exposure control, adjustment of mA and/or kV according to patient size. COMPARISON: [facility], CT, CT ABDOMEN PELVIS W CON, 10/24/2020, 10:46. FINDINGS: Image quality: Excellent. Lung bases: Bibasilar atelectasis. Heart size is normal. There is a small hiatal hernia. Urinary system: Both kidneys are normal in size and demonstrate symmetric contrast enhancement. There is moderate right hydronephrosis. No nephrolithiasis. Renal calyces appear normal in morphology when filled with contrast. Opacified portions of both ureters demonstrate normal caliber. Bladder is semi contracted with normal wall thickness. No calcified bladder stones. Other solid organs: Liver is normal in size and enhancement. Gallbladder is normal. Biliary system is non dilated. Pancreas enhances normally. Spleen is normal in size and enhancement. No adrenal nodules. Peritoneum and bowel: Bowel loops demonstrate normal wall thickness and caliber. Diverticulosis. No active diverticulitis. Normal appendix. No free fluid or air. Nodes and vessels: No retroperitoneal or mesenteric adenopathy by size criteria. Aorta and inferior vena cava are normal in size. Abdominal wall: No ventral hernias. Pelvis: Uterus is prominent in size. There is endometrial fluid in the endometrial cavity. Ovaries are not well seen. No pathologic free pelvic fluid. No inguinal adenopathy. Bilateral fat containing inguinal hernias are noted. Bones: No suspicious bony lesions. No vertebral body compression fractures. IMPRESSION: 1. Moderate right hydronephrosis. Right ureter is normal in caliber. The CT findings suggest right UPJ obstruction. 2. Diverticulosis without acute diverticulitis. 3. Prominent uterus with endometrial fluid. Recommend pelvic ultrasound for follow-up evaluation. Dictated by: Apryl Campuzano M.D. on 11/04/2020 at 12:04 Approved by: Apryl Campuzano M.D. on 11/04/2020 at 15:35
== END ==
PROVIDERS: Family Provider Internal Medicine Cardiovascular Disease; PCP Family Medicine; Referring Provider Specialist; Visit Provider Specialist
DX: N13.30 Unspecified hydronephrosis (principal); K57.90 Diverticulosis of intestine, part unspecified, without perforation or abscess without bleeding
CPT/HCPCS: 74178; Q9967

== ENCOUNTER → 2020-11-09 09:36 | Outpatient (CLI) | payer MEDICARE, SELFPAY ==
[2020-11-09 10:44] LABS: Hemoglobin A1C% w Est Avg Glu 6.4 % (4.0-6.0)
== END ==
PROVIDERS: Family Provider Internal Medicine Cardiovascular Disease; PCP Family Medicine; Referring Provider Family Medicine; Visit Provider Family Medicine
DX: R73.03 Prediabetes (principal)
CPT/HCPCS: 83036

== ENCOUNTER → 2020-11-16 12:04 | Outpatient (CLI) | payer MEDICARE, SELFPAY ==
--- NOTE | 2020-11-16 12:06 | DI.NM.S_ITS ---
PROCEDURE: NM RENAL FUNCTION W LASIX RADIOPHARMACEUTICAL: 10.2 mCi Tc-99m MAG3 IV and 40 mg furosemide IV. INDICATIONS: UPJ obstruction TECHNIQUE: The patient was hydrated orally before the examination was begun. After intravenous administration of Tc-99m MAG3, posterior abdominal radionuclide angiogram and sequential (1 minute each frame) renal images were obtained. A time-activity curve for each kidney was generated and analyzed. To evaluate for obstruction, the patient was given 40 mg furosemide via slow intravenous injection after the start of the examination. Sequential images were obtained for up to an additional 20 minutes. COMPARISON: [facility], CT, CT ABDOMEN PELVIS W CON, 10/24/2020, 10:46. [facility], CT, CT ABDOMEN PELVIS WO/W CON, 11/04/2020, 10:03. FINDINGS: Perfusion: There is normal vascular flow to both kidneys. Morphology: Both kidneys are normal in size and shape. Renal pelvis patulous. The ureters are normal in caliber. The urinary bladder fills with tracer and appears normal. Function: Both kidneys demonstrate normal cortical tracer uptake, with [id number] activity ranging from 3 to 5 minutes. The right kidney contributes 50.3% of total renal function. The left kidney contributes 49.7% of total renal function. Lasix stimulation: After diuretic administration, there is prompt clearance of tracer activity from the renal collecting systems in both kidneys. The half-time of emptying of tracer activity from the right pelvicaliceal system is 10.5 minutes. The half-time of emptying from the left pelvicaliceal system is 5.4 minutes. Normal emptying half-times are less than 10 minutes; borderline ranges are from 10 to 20 minutes. IMPRESSION: 1. Patulous right renal pelvis. The T1/2 of the right kidney is minimally increased, suggesting low-grade right UPJ obstruction. 2. Normal left renal function. 3. Symmetric split renal function. Dictated by: Apryl Campuzano M.D. on 11/17/2020 at 10:42 Approved by: Apryl Campuzano M.D. on 11/17/2020 at 10:51
== END ==
PROVIDERS: Family Provider Internal Medicine Cardiovascular Disease; PCP Family Medicine; Referring Provider Specialist; Visit Provider Specialist
DX: N13.5 Crossing vessel and stricture of ureter without hydronephrosis (principal)
CPT/HCPCS: 78708; A9562

== ENCOUNTER → 2021-02-01 08:59 | Outpatient (CLI) | payer MEDICARE, SELFPAY ==
[2021-02-01 10:10] LABS: Add Manual Diff / Slide Review NO; Basophils Absolute Auto 100 /uL (0-100); Basophils Percent Auto 0.8 % (0-2); Eosinophils Absolute Auto 200 /uL (0-450); Eosinophils Percent Auto 3.1 % (2-4); Hematocrit 39.2 % (36-46); Lymphocytes Absolute Auto 1700 /uL (1100-4500); Lymphocytes Percent Auto 25.5 % (25-40); Mean Corpuscular HGB Conc 33.2 % (30-36); Mean Corpuscular Hemoglobin 30.3 PG (26-34); Mean Corpuscular Volume 91.3 fL (80-100); Monocytes Absolute Auto 500 /uL (0-900); Monocytes Percent Auto 7.3 % (3-14); Neutrophils Absolute Auto 4300 /uL (1500-7000); Neutrophils Percent Auto 63.3 % (50-75); Platelet Count 255 X10^3/uL (150-400); White Blood Cell Count 6.8 X10^3/uL (4.5-11.0)
[2021-02-01 11:26] LABS: BUN Creatinine Ratio 19.8 (6-22); Blood Urea Nitrogen 16 mg/dL (7-17); Calcium 9.5 mg/dL (8.4-10.2); Carbon Dioxide 25 mmol/L (22-32); Chloride 109 mmol/L (98-107); Cholesterol 119 mg/dL (140-199); Estimated Glomerular Filt Rate > 60.0 mL/min (>60); Glucose 126 mg/dL (80-110); HDL Cholesterol 51 mg/dL (40-60); HEMOLYSIS < 15 (0-50); LDL Cholesterol Calculated 48 mg/dL (<100); Potassium 4.7 mmol/L (3.4-5.1); Sodium 143 mmol/L (137-145); Triglycerides 99 mg/dL (35-150)
== END ==
PROVIDERS: Family Provider Internal Medicine Cardiovascular Disease; PCP Family Medicine; Referring Provider Internal Medicine Cardiovascular Disease; Visit Provider Internal Medicine Cardiovascular Disease
DX: I10 Essential (primary) hypertension (principal); E78.5 Hyperlipidemia, unspecified
CPT/HCPCS: 36415; 80048; 80061; 85025

== ENCOUNTER 2021-02-01 23:29 | Inpatient (IN) | payer MEDICARE, SELFPAY ==
[2021-02-01 23:35] VITALS: BP 176/80; PULSE 97; RESP 17; TEMP 37.6; O2SAT 97; BMI 34.3
--- NOTE | 2021-02-01 23:42 | DI.RAD.S_ITS ---
PROCEDURE: XR CHEST 1V INDICATIONS: chest pain TECHNIQUE: One view of the chest was acquired. COMPARISON: None. FINDINGS: Surgical changes and devices: None. Lungs and pleura: Lungs are clear. No pleural effusions or pneumothorax. Mediastinum: Mediastinal contours appear normal. Heart size is normal. Bones and chest wall: No suspicious bony lesions. Overlying soft tissues appear unremarkable. IMPRESSION: No acute cardiopulmonary disease process. Dictated by: Shanel Oconnell MD, PhD on 02/02/2021 at 8:21 Approved by: Shanel Oconnell MD, PhD on 02/02/2021 at 8:22
[2021-02-02] VITALS (16 sets, daily range): BP systolic 129–192; BP diastolic 66–108; PULSE 52–65; RESP 15–26; TEMP 36.2–37; O2SAT 94–98; BMI 33.3
[2021-02-02 00:08] LABS: Add Manual Diff / Slide Review NO; Basophils Absolute Auto 100 /uL (0-100); Basophils Percent Auto 0.8 % (0-2); Eosinophils Absolute Auto 200 /uL (0-450); Eosinophils Percent Auto 3.1 % (2-4); Hemoglobin 13.2 g/dL (12.0-16.0); Lymphocytes Absolute Auto 2100 /uL (1100-4500); Lymphocytes Percent Auto 26.3 % (25-40); Mean Corpuscular Hemoglobin 30.9 PG (26-34); Mean Corpuscular Volume 90.9 fL (80-100); Monocytes Absolute Auto 700 /uL (0-900); Monocytes Percent Auto 8.7 % (3-14); Neutrophils Absolute Auto 4800 /uL (1500-7000); Neutrophils Percent Auto 61.1 % (50-75); Platelet Count 258 X10^3/uL (150-400); Red Blood Cell Count 4.29 X10^6/uL (4.0-5.2); Red Cell Distribution Width 13.8 % (11.6-14.8); White Blood Cell Count 7.9 X10^3/uL (4.5-11.0)
[2021-02-02 00:24] LABS: PTT Partial Thromboplastin Tim 23 SECONDS (26.4-36.2)
[2021-02-02 00:25] LABS: Alanine Aminotransferase 16 IU/L (<35); Albumin Globulin Ratio 1.3 (1.0-2.8); Alkaline Phosphatase 100 U/L (38-126); Aspartate Aminotransferase 27 IU/L (14-36); BUN Creatinine Ratio 23.8 (6-22); Bilirubin Total 0.6 mg/dL (0.2-1.3); Blood Urea Nitrogen 20 mg/dL (7-17); Calcium 9.3 mg/dL (8.4-10.2); Carbon Dioxide 22 mmol/L (22-32); Chloride 110 mmol/L (98-107); Creatine Kinase 152 U/L (30-135); Estimated Glomerular Filt Rate > 60.0 mL/min (>60); Glucose 124 mg/dL (80-110); HEMOLYSIS 23 (0-50); Lipase 106 U/L (23-300); Potassium 3.9 mmol/L (3.4-5.1); Sodium 143 mmol/L (137-145)
[2021-02-02 00:31] LABS: D Dimer 2602 ng/mL (<230)
[2021-02-02 00:36] LABS: NT-proBNP (BNP-Adult 18+) 1500 pg/mL (<450); Troponin I 0.038 ng/mL (0.01-0.034)
[2021-02-02 00:40] LABS: Creatine Kinase MB 1.52 ng/mL (<2.37)
--- NOTE | 2021-02-02 02:30 | PC.NURSE ---
Intermittent right chest pain that radiates to right shoulder. Short of breath with exertion, intermittent dizziness upon standing and position changes. Swelling in right lower exremity, pt reports swelling has actually decreased over the past two days.
--- NOTE | 2021-02-02 03:20 | ED.CHESTPAIN ---
HPI - Chest Pain General Chief Complaint: Chest Pain Stated Complaint: BP is up around 140 light headed Time Seen by Provider: 02/02/21 03:20 Source: patient Mode of arrival: Ambulatory Limitations: no limitations History of Present Illness HPI narrative: Patient is a 75-year-old female who has a history of coronary artery disease presenting increasing shortness of breath over last 3 days. She says she cannot go up a flight of stairs due to severe shortness of breath. She has no orthopnea, fever or cough. She has noticed that she has had lower extremity swelling more on her right than her left. She says actually has gone down some. She denies any history of congestive heart failure or blood clots. She currently is denying any chest pain and while resting she is not short of breath. She denies any recent travel. MD complaint: chest pain and other (Shortness of breath) Onset (ago): day(s) Onset: during exertion Related Data Home Medications Medication Instructions Recorded Confirmed ASPIRIN (Aspir-Low) 81 mg PO QDAY #0 05/08/11 02/02/21 atorvastatin [Lipitor] 80 mg PO QDAY #0 05/08/11 02/02/21 metoprolol tartrate 25 mg tablet 25 mg PO BID 10/08/18 02/02/21 Previous Rx's Medication Instructions Recorded lisinopril 5 mg tablet See Rx Instructions .ROUTE 12/24/20 .COMPLEX #90 tab Allergies Allergy/AdvReac Type Severity Reaction Status Date / Time No Known Drug Allergies Allergy Verified 11/25/20 09:06 Review of Systems Review of Systems ROS Unobtainable: All systems reviewed & are unremarkable except as noted in HPI and below Constitutional Constitutional: Denies chills, Reports fatigue, Denies fever(s), Reports lethargy and Denies weakness ENT Ears, Nose, Mouth, and Throat: Denies vertigo and Denies dizziness Cardiovascular Cardiovascular: Reports as per HPI, Reports chest pain, Denies edema, Reports leg edema, Reports dyspnea on exertion and Denies orthopnea Respiratory Respiratory: Reports dyspnea on exertion Gastrointestinal Gastrointestinal: Denies abdominal pain, Denies change in bowel habits, Denies diarrhea, Denies nausea and Denies vomiting Musculoskeletal Musculoskeletal: Denies back pain and Denies joint swelling Integumentary/Breasts Skin/Breast: Denies pruritus, Denies erythema, Denies rash and Denies wounds Neurologic Neurologic: Denies vertigo, Denies dizziness and Denies weakness Endocrine Endocrine: Reports fatigue Patient History Medical History (Updated 02/02/21 @ 06:57 by Shamar Noel MD) Coronary artery disease Depression Diabetes type 2, controlled Essential hypertension History of myocardial infarction Mixed hyperlipidemia Pre-diabetes Ureteropelvic junction (UPJ) obstruction, right Family History Daughter Hyperlipidemia Social History marital status: number of children: 2 household members: other occupational status: previously employed Smoking Status: Never smoker alcohol intake: never caffeine: No Smoking Status: Never smoker alcohol intake frequency: 0-2 drinks per day Substance Use Type: does not use Exam Initial Vital Signs Initial Vital Signs: Vital Signs Temperature 99.6 F 02/01/21 23:35 Pulse Rate 97 H 02/01/21 23:35 Respiratory Rate 17 02/01/21 23:35 Blood Pressure 176/80 H 02/01/21 23:35 Pulse Oximetry 97 02/01/21 23:35 GENERAL: Alert pleasant 75-year-old female and in no acute distress. HEENT: Head atraumatic,EOMI, pupils reactive, face symmetric, moist mucous membranes CARDIOVASCULAR: Regular rate and rhythm without murmurs, rubs or gallops. RESPIRATORY: Breath sounds equal bilaterally, no wheezes rales or rhonchi. ABDOMEN: Soft, nontender. Normoactive bowel sounds all 4 quadrants. No guarding or rebound. EXTREMITIES: Normal range of motion, no clubbing or edema. Neurovascularly intact Right leg is significantly more swollen than left nonpitting edema bilaterally bilateral peripheral pulses NEUROLOGICAL: Alert and oriented x4.Normal gait and speech. SKIN: Warm, dry, no laceration, no petechiae, no rashes or lesions. Course Orders Ordered: ED Orders 02/01/21 23:42 XR chest 1V Stat EKG-12 Lead Stat 02/01/21 23:55 Complete Blood Count AUTO DIFF Stat Comprehensive Metabolic Panel Stat DD [D Dimer] Stat Lipase Stat NT-proBNP (BNP-Adult 18+) Stat Partial Thromboplastin Time Stat Prothrombin Time INR Stat Troponin & CK Cardiac Panel Stat 02/02/21 03:30 CT angio chest PE protocol Stat US periph venous low extrem rt Stat 02/02/21 05:00 COVID19 - ADMIT ([facility] swab/PCR) Stat Acetaminophen (Acetaminophen 325 Mg Tablet) 650 mg PO Q6HR PRN PRN Reason: Fever/Mild Pain (1-3) Atorvastatin Calcium (Atorvastatin 20 Mg Tablet) 80 mg PO DAILY ALBERTO Dextrose (Dextrose 50 % In Water 25 Gm/50 Ml Syringe) 25 gm IV PRN PRN PRN Reason: Hypoglycemia Heparin Sodium/Dextrose (Heparin Drip) 25,000 unit in 500 mls @ 24 mls/hr IV CONT ALBERTO; Protocol Last Admin: 02/02/21 04:48 Dose: 1,200 units/hr, 24 mls/hr Documented by: TAMI Dextrose/Sodium Chloride (Dextrose 5%-0.9% Ns) 1,000 mls @ 60 mls/hr IV CONT ALBERTO Last Admin: 02/02/21 07:00 Dose: Not Given Documented by: BERNARDINORSTA Insulin Aspart (Insulin Aspart 100 Unit/Ml Insuln Pen) 0 unit SUBCUT ACHS ALBERTO; Protocol Lisinopril (Lisinopril 5 Mg Tablet) 5 mg PO DAILY ALBERTO Metoprolol Tartrate (Metoprolol Ir 25 Mg Tablet) 25 mg PO BID ALBERTO Discontinued Medications Heparin Sodium (Porcine) (Heparin 5,000 Unit/Ml Vial) 7,300 unit 80 unit/kg (7300 unit) IV NOW ONE Stop: 02/02/21 04:23 Last Admin: 02/02/21 04:43 Dose: 7,300 unit Documented by: TAMI Vital Signs Vital signs: Vital Signs - 8 hr 02/01/21 23:35 02/02/21 01:45 02/02/21 03:41 Temperature 99.6 F Pulse Rate 97 H 60 56 L Respiratory Rate 17 18 24 Blood Pressure 176/80 H 144/72 H 168/80 H Pulse Oximetry 97 98 98 02/02/21 04:00 02/02/21 04:01 02/02/21 04:30 Temperature Pulse Rate 63 60 56 L Respiratory Rate 23 25 H 26 H Blood Pressure 192/73 H 172/79 H Pulse Oximetry 97 98 97 02/02/21 04:31 Temperature Pulse Rate 56 L Respiratory Rate 22 Blood Pressure 167/83 H Pulse Oximetry 97 MDM - Chest Pain Lab Data Attestation: I reviewed the patient's lab results. Result diagrams: 02/01/21 23:55 02/01/21 23:55 Labs: Lab Results 02/01/21 02/01/21 02/01/21 Range/Units 23:55 23:55 23:55 WBC 7.9 (4.5-11.0) X10^3/uL RBC 4.29 (4.0-5.2) X10^6/uL Hgb 13.2 (12.0-16.0) g/dL Hct 39.0 (36-46) % MCV 90.9 (80-100) fL MCH 30.9 (26-34) PG MCHC 34.0 (30-36) % RDW 13.8 (11.6-14.8) % Plt Count 258 (150-400) X10^3/uL Neut % (Auto) 61.1 (50-75) % Lymph % (Auto) 26.3 (25-40) % Barrow % (Auto) 8.7 (3-14) % Eos % (Auto) 3.1 (2-4) % Baso % (Auto) 0.8 (0-2) % Neut # (Auto) 4800 (3514-5452) /uL Lymph # (Auto) 2100 (8818-7215) /uL Barrow # (Auto) 700 (0-900) /uL Eos # (Auto) 200 (0-450) /uL Baso # (Auto) 100 (0-100) /uL PT 12.0 (10.1-12.7) SECONDS INR 1.0 (0.9-1.3) APTT 23 L (26.4-36.2) SECONDS D-Dimer 2602 H (<230) ng/mL Sodium 143 (137-145) mmol/L Potassium 3.9 (3.4-5.1) mmol/L Chloride 110 H (98-107) mmol/L Carbon Dioxide 22 (22-32) mmol/L BUN 20 H (7-17) mg/dL Creatinine 0.84 (0.52-1.04) mg/dL Estimated GFR > 60.0 (>60) mL/min BUN/Creatinine Ratio 23.8 H (6-22) Glucose 124 H (80-110) mg/dL Calcium 9.3 (8.4-10.2) mg/dL Total Bilirubin 0.6 (0.2-1.3) mg/dL AST 27 (14-36) IU/L ALT 16 (<35) IU/L Alkaline Phosphatase 100 (38-126) U/L Total Creatine Kinase 152 H (30-135) U/L CK-MB (CK-2) 1.52 (<2.37) ng/mL CK-MB (CK-2) Rel Index 1.0 L (1.5-5.0) % Troponin I 0.038 H (0.01-0.034) ng/mL NT-Pro-B Natriuret Pep 1500 H (<450) pg/mL Total Protein 7.0 (6.3-8.2) g/dL Albumin 4.0 (3.5-5.0) g/dL Globulin 3.0 (1.7-4.1) g/dL Albumin/Globulin Ratio 1.3 (1.0-2.8) Lipase 106 (23-300) U/L Imaging Data Chest x-ray: Radiologist's Impression: Preliminary report no significant abnormality CT scan - chest: Radiologist's Impression: Preliminary report: Extensive bilateral central segmental and subsegmental pulmonary emboli within the right upper middle and lower lobe pulmonary arteries and segmental and subsegmental pulmonary emboli within the left upper and left lower lobe pulmonary arteries. No aortic dissection. US - DVT: Radiologist's Impression: Preliminary refer occlusive thrombus within superficial femoral and popliteal vein ECG Data Attestation: I personally reviewed and interpreted this ECG as follows: Prior ECG tracings: available for review Interpretation: Normal sinus rhythm rate 64 WA interval 160 QRS [address] changes Q-waves noted in inferior leads 3 and AVF similar to previous EKG MDM Narrative Medical decision making narrative: Patient has significant right leg swelling and shortness of breath with exertion. D-dimer came back very positive home greater than 2000 concern for PEW. BNP is also elevated at 1500 with indeterminate troponin. Concern for right heart strain possible CHF as well. CT pending. CT and ultrasound both confirm pulmonary embolism and DVT. At this time she does not meet thrombolysis criteria. She is not hypotensive or hypoxic. I actually did discuss case with Radiology in regards to right heart strain because she has an indeterminate troponin. At this time there is no evidence of right heart strain on CT. Dr. Noel updated on patient's symptoms test results and agrees with admission Patient is started on heparin and put on bedrest. Discharge Plan Departure Patient Disposition: Admitted as Observation Clinical Impression: Pulmonary embolism Qualifiers: Pulmonary embolism type: multiple subsegmental (without acute cor pulmonale) Qualified Code(s): I26.94 - Multiple subsegmental pulmonary emboli without acute cor pulmonale DVT (deep venous thrombosis) Qualifiers: DVT location: lower extremity Chronicity: acute Laterality: right Admit Date/Time: 02/02/21 04:54 Admit Provider: Shamar Noel
--- NOTE | 2021-02-02 03:30 | DI.US.S_ITS ---
PROCEDURE: US PERIPH VENOUS LOW EXTREM RT INDICATIONS: EDEMA TECHNIQUE: Real-time imaging, as well as color and pulse Doppler interrogation, were performed of the lower extremity deep veins from the inguinal ligament to the popliteal fossa. COMPARISON: None. FINDINGS: The common femoral vein is normally compressible, and free of intraluminal thrombus. Occlusive thrombus identified in the mid to distal left superficial femoral vein in the left popliteal vein. IMPRESSION: Abnormal study demonstrating left lower extremity deep vein thrombosis. Occlusive thrombus identified in the left superficial femoral vein and left popliteal vein. Dictated by: Shanel Oconnell MD, PhD on 02/02/2021 at 8:14 Approved by: Shanel Oconnell MD, PhD on 02/02/2021 at 8:15
--- NOTE | 2021-02-02 03:30 | DI.CT.S_ITS ---
PROCEDURE: CT ANGIO CHEST PE PROTOCOL INDICATIONS: + dimer, shortness of breath TECHNIQUE: After the administration of intravenous contrast, 2 mm thick sections acquired from the pulmonary apices to the posterior costophrenic angles. 3-dimensional maximum intensity projection (MIP) coronal and sagittal reformats were then acquired through the thorax. For radiation dose reduction, the following was used: automated exposure control, adjustment of mA and/or kV according to patient size. COMPARISON: None. FINDINGS: Image quality: Excellent. Pulmonary arteries: Pulmonary arteries are normal in size. Multiple filling defects are seen in segmental and subsegmental branches of bilateral upper, lower and right middle lobes. Lungs and pleura: Emphysematous changes are seen. Biapical scarring is seen. Scattered atelectasis in periphery of bilateral lower lung vega are seen. Small airspace opacity in antral medial aspect of right middle lobe is noted which may represent focal atelectasis versus small infiltrate. Patchy ground-glass opacities also seen scattered in bilateral lung bases. 3 millimeter solid nodule is seen in left upper lobe series 5, image 68. No pleural effusions or pneumothorax. Central and peripheral airways are patent. Mediastinum: Heart size is enlarged, without pericardial effusion. No mediastinal or hilar adenopathy. Thoracic aorta is normal in caliber and enhancement. Esophagus is normal in caliber, without hiatal hernia. Bones and chest wall: No suspicious bony lesions. Ribs and thoracic spine appear intact throughout. Thyroid gland is within normal limits No axillary or supraclavicular adenopathy. Abdomen: Visualized upper abdominal solid organs appear normal in the early arterial phase of enhancement. IMPRESSION: 1. Extensive bilateral pulmonary emboli as above. No thoracic aortic aneurysm or dissection. 2. Emphysematous changes in bilateral lung vega. Biapical scarring and scattered atelectasis in bilateral lung bases. Suggestion of small infiltrate/atelectasis in antral medial aspect of right middle lobe adjacent to right heart border. No pleural effusion or pneumothorax. Airway is patent. 3. Incidentally noted of 3 millimeter left upper lobe nodule. If indicated, 12 month follow-up CT chest can be done for evaluation of stability. 4. No mediastinal or hilar lymphadenopathy. Cardiomegaly. No discrepancies. Dictated by: Raul Chavez M.D. on 02/02/2021 at 8:34 Approved by: Raul Chavez M.D. on 02/02/2021 at 8:54
[2021-02-02] MEDS: HEPARIN 5,000 UNIT/ML VIAL 7300 UNIT IV (04:43)
[2021-02-02] MEDS: HEPARIN DRIP 25,000 UNIT/500 ML IV.SOLN 24 UNIT IV (04:48)
[2021-02-02 05:43] LABS: COVID19 - ADMIT (NP swab/PCR) Negative (Negative)
--- NOTE | 2021-02-02 06:32 | PC.ADMIT ---
Addendum entered by Piper Washburn R.N. 02/02/21 06:57: CH[employer] SCREEN TENDER up to attempt to place another IV for IVF and unable to obtain access. Additionally, lab was unable to draw blood for a.m. labs. Dr Noel informed and order received for midline placement and stated to hold starting IVF until midline placed. Original Note: patient admitted to room 204 from ER per stretcher with diagnosis of multiple PE's and right LE DVT. Is alert and oriented. Breath sounds CTA with RA sat of 95%. Denies SOB either at rest or with exertion but per [employer]CRE[employer] TENDER had been SOB with exertion prior to coming to unit. Is currently on continuous oximetry. HRR but bradycardic with rate in 50's and telemetry reading was SB. Denies nausea. BT present and abdomen is soft; had BM late last evening. Denies dysuria, frequency, urgency or incontinence. Is able to move herself in bed. SBA when out of bed. Non pitting edema in bilateral LE with right > left. Is currently on heparin drip at 1200 units/hr. Denies pain. Fall risk assessment is moderate; patient verbalizes she will call for assistance if needing to get out of bed. Daughter present in room. Instructed in use of call light and bed controls. [email or web address] Admission Note: The patient,Raisa Thomas,75 y/o, was given written information regarding hospital policies, unit procedures and contact persons. Patient's smoking status: Never smoker. Vital Signs - 8 hr 02/01/21 23:35 02/02/21 01:45 02/02/21 03:41 Temperature 99.6 F Pulse Rate 97 H 60 56 L Respiratory Rate 17 18 24 Blood Pressure 176/80 H 144/72 H 168/80 H Pulse Oximetry 97 98 98 02/02/21 04:00 02/02/21 04:01 02/02/21 04:30 Temperature Pulse Rate 63 60 56 L Respiratory Rate 23 25 H 26 H Blood Pressure 192/73 H 172/79 H Pulse Oximetry 97 98 97 02/02/21 04:31 02/02/21 05:00 02/02/21 05:30 Temperature 97.2 F L Pulse Rate 56 L 60 52 L Respiratory Rate 22 24 18 Blood Pressure 167/83 H 172/108 H 172/82 H Pulse Oximetry 97 97 95
--- NOTE | 2021-02-02 06:51 | P.HP_ITS ---
History of Present Illness History of Present Illness Date Patient Seen: 02/02/21 Time Patient Seen: 06:51 Chief complaint: BP is up around 140 light headed Narrative: 75-year-old female admitted by the emergency department with multiple pulmonary embolism and large right-sided DVT Presented with symptoms of dyspnea with exertion without chest pain palpitations orthopnea or PND. Patient said she feels similar to when she did prior to her myocardial infarction some years ago. Was having some right shoulder pain in addition to the shortness of breath and generalized weakness. ER evaluation revealed the large burden of clot as well as the DVT. No prior history of clotting. No high risk activities or events recently to increase risk for venous thromboembolism. Relatively recently diagnosed with diabetes type 2 based on elevated A1c, as well as elevated blood sugars on routine testing including fasting testing. Has only been seen rarely by her PCP Dr. Toussaint Recently evaluated for evidence of right hydronephrosis after presenting with flank pain and or possible UTI. [place] to have a blood vessel crossing the ureter causing this after urological evaluation. Patient History Medical History (Updated 02/02/21 @ 06:57 by Shamar Noel MD) Coronary artery disease Depression Diabetes type 2, controlled Essential hypertension History of myocardial infarction Mixed hyperlipidemia Pre-diabetes Ureteropelvic junction (UPJ) obstruction, right Family & Social History Family History Daughter Hyperlipidemia Social History: household members other Prior Living Arrangements House Safety & Behavioral: Feels Safe in Current Yes Environment Been Physically Hurt or No Threatened By a Person Suicidal Ideation Description None Suicide Plan Description No Plan Tobacco & Substance use: Smoking Status Never smoker alcohol intake never alcohol intake frequency 0-2 drinks per day Substance Use Type does not use Meds Home Medications and Allergies Home Medications Medication Instructions Recorded Confirmed Type ASPIRIN (Aspir-Low) 81 mg PO QDAY #0 05/08/11 02/02/21 History atorvastatin [Lipitor] 80 mg PO QDAY #0 05/08/11 02/02/21 History metoprolol tartrate 25 mg tablet 25 mg PO BID 10/08/18 02/02/21 History lisinopril 5 mg tablet See Rx Instructions .ROUTE 12/24/20 02/02/21 Rx .COMPLEX #90 tab Allergies Allergy/AdvReac Type Severity Reaction Status Date / Time No Known Drug Allergies Allergy Verified 11/25/20 09:06 Review of Systems Constitutional Constitutional: Denies excessive sweating, Denies fever(s), Denies headache(s), Denies weakness, Denies weight gain and Denies weight loss Eyes Eyes: Denies change in vision, Denies itchy eyes, Denies loss of vision and Denies other visual disturbances ENT Ears, Nose, Mouth, and Throat: No change in voice, No dysphagia, No dizziness, No otalgia, No headache(s), No hoarseness, No lip swelling, No neck pain, No sore throat, No throat swelling and No tongue swelling Cardiovascular Cardiovascular: Denies chest pain, Denies syncope, Denies rapid heart rate, Denies irregular heart rhythm, Denies palpitations, Reports dyspnea, Reports dyspnea on exertion and Denies slow heart rate Respiratory Respiratory: Denies chest congestion, Denies cough, Denies hemoptysis, Reports dyspnea, Reports dyspnea on exertion, Denies stridor and Denies wheezing Gastrointestinal Gastrointestinal: Denies abdominal pain, Denies bloating, Denies change in bowel habits, Denies change in stool character, Denies dysphagia, Denies nausea, Denies vomiting and Denies hematemesis Genitourinary Genitourinary: Denies hematuria, Denies urinary frequency and Denies difficulty voiding Musculoskeletal Musculoskeletal: Denies abnormal gait, Denies myalgias, Denies arthralgias, Den ies limited range of motion and Denies neck pain Integumentary/Breasts Skin/Breast: Denies bleeding lesions, Denies change in pigmentation, Denies changing lesions, Denies new lesions, Denies rash, Denies skin swelling, Denies sores and Denies jaundice Neurologic Neurologic: Denies abnormal speech, Denies abnormal gait, Denies behavioral changes, Denies confusion, Denies dizziness, Denies syncope, Denies headache(s), Denies loss of vision, Denies memory loss, Denies seizure-like activity, Denies paresthesias and Denies weakness Psychiatric Psychiatric: Denies behavioral changes, Denies change in appetite, Denies confusion, Denies difficulty concentrating, Denies auditory hallucinations, Denies memory loss, Denies mood swings and Denies suicidal ideation Endocrine Endocrine: Denies excessive sweating, Denies flushing, Denies polyuria and Denies palpitations Hematologic/Lymphatic Hematologic/Lymphatic: Denies easy bleeding, Denies easy bruising and Denies lymphadenopathy Allergic/Immunologic Allergic/Immunologic: Denies urticaria, Denies itchy eyes, Denies lip swelling, Denies throat swelling, Denies tongue swelling and Denies wheezing Exam Vital Signs (past 8 hours): - 02/01/21 23:35 02/02/21 01:45 02/02/21 03:41 Temperature 99.6 F Pulse Rate 97 H 60 56 L Respiratory Rate 17 18 24 Blood Pressure 176/80 H 144/72 H 168/80 H Pulse Oximetry 97 98 98 02/02/21 04:00 02/02/21 04:01 02/02/21 04:30 Temperature Pulse Rate 63 60 56 L Respiratory Rate 23 25 H 26 H Blood Pressure 192/73 H 172/79 H Pulse Oximetry 97 98 97 02/02/21 04:31 02/02/21 05:00 02/02/21 05:30 Temperature 97.2 F L Pulse Rate 56 L 60 52 L Respiratory Rate 22 24 18 Blood Pressure 167/83 H 172/108 H 172/82 H Pulse Oximetry 97 97 95 Oxygen Delivery Method Room Air Oxygen Flow Rate 0 Narrative Exam Narrative: Elderly female who appears younger than stated age in no obvious distress lying in hospital bed HEENT-unremarkable normocephalic atraumatic PERRLA Neck-no lymphadenopathy Lungs-good breath sounds clear no wheezes no crackles Heart-regular rate and rhythm no murmur Abdomen-benign Extremities-2+ edema right ankle, trace-1+ left ankle Objective Labs Result Diagrams: 02/03/21 05:00 02/03/21 05:00 Labs: Laboratory Results - last 24 hr 02/01/21 02/01/21 02/01/21 23:55 23:55 23:55 WBC 7.9 RBC 4.29 Hgb 13.2 Hct 39.0 MCV 90.9 MCH 30.9 MCHC 34.0 RDW 13.8 Plt Count 258 Neut % (Auto) 61.1 Lymph % (Auto) 26.3 [place] % (Auto) 8.7 Eos % (Auto) 3.1 Baso % (Auto) 0.8 Neut # (Auto) 4800 Lymph # (Auto) 2100 [place] # (Auto) 700 Eos # (Auto) 200 Baso # (Auto) 100 PT 12.0 INR 1.0 APTT 23 L D-Dimer 2602 H Sodium 143 Potassium 3.9 Chloride 110 H Carbon Dioxide 22 BUN 20 H Creatinine 0.84 Estimated GFR > 60.0 BUN/Creatinine Ratio 23.8 H Glucose 124 H Calcium 9.3 Total Bilirubin 0.6 AST 27 ALT 16 Alkaline Phosphatase 100 Total Creatine Kinase 152 H CK-MB (CK-2) 1.52 CK-MB (CK-2) Rel Index 1.0 L Troponin I 0.038 H NT-Pro-B Natriuret Pep 1500 H Total Protein 7.0 Albumin 4.0 Globulin 3.0 Albumin/Globulin Ratio 1.3 Lipase 106 SARS-CoV-2 (PCR) 02/02/21 05:00 WBC RBC Hgb Hct MCV MCH MCHC RDW Plt Count Neut % (Auto) Lymph % (Auto) [place] % (Auto) Eos % (Auto) Baso % (Auto) Neut # (Auto) Lymph # (Auto) [place] # (Auto) Eos # (Auto) Baso # (Auto) PT INR APTT D-Dimer Sodium Potassium Chloride Carbon Dioxide BUN Creatinine Estimated GFR BUN/Creatinine Ratio Glucose Calcium Total Bilirubin AST ALT Alkaline Phosphatase Total Creatine Kinase CK-MB (CK-2) CK-MB (CK-2) Rel Index Troponin I NT-Pro-B Natriuret Pep Total Protein Albumin Globulin Albumin/Globulin Ratio Lipase SARS-CoV-2 (PCR) Negative Assessment & Plan Assessment & Plan narrative: 1. Pulmonary embolism-patient with large burden of clot as well as large DVT on right puts her at higher than average risk of decompensation. She was started appropriately on unfractionated heparin in the emergency department which will continue for 24 hours at least depending on her clinical course. I will also obtain echocardiogram to help assess her risk looking for evidence of significant right ventricular dysfunction. I will hold off on starting her on a direct oral anticoagulant until there has been a period of stability. I will also initiate a workup for a hypercoagulable state. Fortunately at this time she appears to be hemodynamically stable but certainly deserves careful monitoring for a period of time. 2. Diabetes-relatively new diagnosis. Of course not on any medication with a very low A1c. Continue with carb consistent diet as well as coverage insulin as necessary. Will need to have blood sugars checked however. 3. History coronary artery disease-no active symptoms at this time. Continue to monitor. 4. History of right hydronephrosis-renal function is normal and urological workup was negative. She would be an appropriate candidate for direct oral anticoagulant as above for treatment of her venous thromboembolism. 5. VTE-patient does not require prophylaxis as surely has the disease. Is fully anticoagulated with unfractionated heparin currently and then oral direct anticoagulant 6. Code status-patient would wish to be resuscitated in the event of a sudden cardiac or respiratory arrest and therefore remains a full code Patient clearly at high risk of significant deterioration with high risk disease with multiple extensive pulmonary emboli on top of extensive right DVT. Patient clearly deserves inpatient hospitalization due to this life-threatening condition. She will likely be in the hospital greater than 48 hours to include 2 separate midnights
[2021-02-02 07:37] LABS: PTT Partial Thromboplastin Tim > 400 SECONDS (26.4-36.2)
[2021-02-02] MEDS: INSULIN ASPART 100 UNIT/ML INSULN PEN SUBCUT (08:10)
[2021-02-02] MEDS: lisinopriL 5 MG TABLET PO (08:13)
[2021-02-02] MEDS: METOPROLOL IR 25 MG TABLET PO ×2 (08:13→20:30)
[2021-02-02] MEDS: ATORVASTATIN 20 MG TABLET 80 MG PO (08:15)
[2021-02-02] MEDS: DEXTROSE 5%-0.9% NS 1,000 ML 60 ML IV (10:02)
--- NOTE | 2021-02-02 10:08 | DI.ECHO.S_ITS ---
[place] +---------+ Hospital +---------+ : : [address] : : : : [id number] : : : : Phone: [phone] Echocardiogram Report + + :Name: DOMINIQUE KITCHEN Study Date: 02/03/2021 Height: 64 in : :[facility] ReadingLocation: Weight: 194 lb : : Gender: Female BSA: 1.9 m2 : :: 1945 Age: 75 yrs BP: 159/68 mmHg: :Reason For Study: PULMONARY EMBOLISM : :Ordering Physician: REYMUNDO, : :LATRELL Dalton Performed By: Gisela Garcia : :Referring: LATRELL DWYER : + + Interpretation Summary The ejection fraction is estimated to be 60-65%. The right ventricular systolic pressure is estimated to be at least 45 mmHg based on an estimated right atrial pressure of 8 mm Hg. There is mild tricuspid regurgitation. The right ventricle is normal in size and function. Procedure: A two-dimensional transthoracic echocardiogram with color flow and Doppler was performed. The study quality was technically adequate. Comparison is made with the echocardiogram of 08/23/2012. The patient was in sinus bradycardia with heart rates between 49-54 bpm during the exam. Left Ventricle: The left ventricle is normal in size and wall thickness. The ejection fraction is estimated to be 60-65%. Left ventricular wall motion is normal. Diastolic parameters suggest a pseudonormalization pattern, consistent with probable elevated filling pressures. Right Ventricle: The right ventricle is normal in size and function. Atria: The left atrium is mildly dilated. Right atrial size is normal. There is no Doppler evidence for an interatrial shunt. Mitral Valve: The mitral valve is normal in structure but abnormal in function. There is trace mitral regurgitation. Aortic Valve: The aortic valve is not well visualized. The aortic valve is mildly calcified. The aortic valve opens well. There is mild aortic valve sclerosis. There is no aortic valve stenosis. No aortic regurgitation is present. Tricuspid Valve: The tricuspid valve is normal in structure and function. The right ventricular systolic pressure is estimated to be at least 45 mmHg based on an estimated right atrial pressure of 8 mm Hg. There is mild tricuspid regurgitation. Pulmonic Valve: The pulmonic valve is not well visualized. There is no pulmonic valvular regurgitation. Great Vessels: The aortic root is normal size. The ascending aorta is at the upper limits of normal in size. The IVC is dilated (diameter is greater than 2.1 cm) yet it collapses greater than 50% with a sniff. This suggests a right atrial pressure of 8 mm Hg. Pericardium/ Pleura There is no pericardial effusion. There is no pleural effusion. MMode/2D Measurements & Calculations LVIDd: 4.4 cm LVOT diam: 2.0 cm LVIDs: 2.8 cm Ao root diam: 3.2 cm FS: 34.9 % asc Aorta Diam: 3.3 cm EPSS: 0.60 cm Ao Arch Diam (Prox Trans): 3.5 cm IVSd: 1.0 cm LVPWd: 0.74 cm LV nowak. diameter/BSA (cm/m^2): 2.3 LV sys. diameter/BSA (cm/m^2): 1.5 LA A2 area: 26.8 cm2 RA long axis: 5.8 cm LA A4 area: 20.3 cm2 RA area: 19.8 cm2 LA length (vol): 5.7 cm RA vol: 57.3 ml LA vol: 80.4 ml RA : 29.7 ml/m2 LA vol index: 41.6 ml/m2 IVC diam: 2.5 cm RVD1 (basal): 3.4 cm TAPSE: 1.9 cm Doppler Measurements & Calculations Ao V2 max: 149.0 cm/sec LVOT Max Shravan: 103.2 cm/sec Ao V2 mean: 107.5 cm/sec LV V1 max P.3 mmHg Ao max P.9 mmHg LV V1 VTI: 27.9 cm Ao mean P.0 mmHg CHASE(I,D): 2.3 cm2 Ao V2 VTI: 37.2 cm CHASE(V,D): 2.1 cm2 sev ratio: 0.75 CHASE indexed to BSA (cm^2/m^2): 1.2 MV E max shravan: 82.7 cm/sec TR max shravan: 303.7 cm/sec Med Peak E' Shravan: 5.8 cm/sec TR max P.9 mmHg E/E' med: 14.3 PA V2 max: 86.7 cm/sec Lat Peak E' Shravan: 7.5 cm/sec PA V2 mean: 61.9 cm/sec E/E' lat: 11.0 PA mean P.7 mmHg E/e' average: 12.7 PA pr(Accel): 39.6 mmHg MV dec time: 0.27 sec SV(LVOT): 86.4 ml Reading Physician:09:19 AM
[2021-02-02 10:51] LABS: PTT Partial Thromboplastin Tim 94 SECONDS (26.4-36.2)
--- NOTE | 2021-02-02 11:49 | PC.NURSE ---
0742 Pt PTT was >[address] Noel and Heparin Drip started and PTT scheduled for 944 with result of 94. Per Dr. Noel restart heparin drip at prior rated of 1200u/hr with an infusion rate of 24. New PTT ordered for 1544. Midline placed with IV fluids as ordered now infusing to RUE midline and Heparin drip to LAC. Pt up to br to void/bm (no hat in the back section of toilet for capture of bm however stool was light brown and soft. Pt back to bed with bed alarm on. Denies pain, nausea, or shortness of breath. Denies dizziness when ambulation to br and back to bed.
--- NOTE | 2021-02-02 14:46 | CM.DANOTE ---
Patient is a 75 yo female who was admitted on 02/02/21 for BP, light headed. Pt has PRE MCR for insurance and her PCP is Dr. Janna Peralta. EMR was reviewed. Per MD, pt admitted with newer dx of diabetes and multiple PE's and DVT and currently on a hep drip. Pt not stable for d/c yet today. SW met bedside with pt and explained role and pt confirms that she lives in [place] in her own apt which is the downstairs of her house and her adult granddtr and granddtr's live upstairs and can assist if needed. Pt is quite active and independent at baseline, drives, does not use DME for ambulation, and does her own cooking and shopping. Pt denies any hx of HH or SNF and has not needed to be admitted to the hospital previously. Pt also has local supportive Dtr/DPOA who can assist if needed as well. Pt preference is to d/c home when medically stable with family assist and does not anticipate any needs but she is somewhat concerned about these new medical issues. Plan: SW to follow closely to confirm if pt will be safe for d/c home with local family assist and any further identified d/c planning needs. JORGE Austin Discharge Planning/Care Management Advanced directive, confirm from FAMILY Start: 02/02/21 05:39 Freq: Q24H Status: Active Protocol: Document 02/02/21 06:08 [facility] (Rec: 02/02/21 06:08 AM[facility] [id number]) Advance Directive, confirm on record Time 06:08 Person contacted Cindy Macdonald Copy received No CM Discharge Assessment Start: 02/02/21 14:44 Freq: Status: Active Protocol: Document 02/02/21 14:45 BF (Rec: 02/02/21 14:46 BF [id number]) Discharge Planning Assessment Assigned Project Finance Analyst JORGE Hong DPOA/Assigned Designee Name Martine White Contact Information [phone] Advance Directives? Yes Advance Directives on File No History Provided By Patient,Medical Record Has Patient been admitted in last 30 No days? Prior Living Arrangements House Household Members family Comment Lives in seperate apt attached to granddtr house Type of transporation used prior to Drives own vehicle admit Independent with ADL's Yes Is patient alert and oriented? Yes Caregiver for Another No Comment Follow for needs, likely home Barriers to Discharge No Discharge Plan Home Transportation Arrangement family can provide transport at d/c Referrals Initiated None needed Whiteboard Updated in Patient Room with Yes name and ext. # of Project Finance Analyst Review Status In Process Please Provide Date Initial DC 02/02/21 Assessment Was Performed Next Review Type Continued Stay Review
[2021-02-02 16:47] LABS: PTT Partial Thromboplastin Tim 77 SECONDS (26.4-36.2)
--- NOTE | 2021-02-02 17:22 | PC.NURSE ---
notified regarding patient's PTT 77 @1545. VTO to continue heparin drip till tomorrow morning and draw at 0500.
[2021-02-03] MEDS: ACETAMINOPHEN 325 MG TABLET 650 MG PO (00:28)
[2021-02-03 00:30] VITALS: BP 167/75; PULSE 57; RESP 18; TEMP 36.6; O2SAT 100
--- NOTE | 2021-02-03 01:47 | PC.NURSE ---
Addendum entered by Piper Washburn R.N. 02/03/21 05:48: Patient's hgb dropped from 13.2 to 11.1 so per MD order Dr Rajput notified. MD also informed that HR has been intermittently dropping down into the 40's. No new orders but wants to make certain any stools get guaiaced. Addendum entered by Piper Washburn R.N. 02/03/21 05:29: Up to bathroom this morning and had no recurrence of chest pain. Still on oxygen but had titrated down and now only on 0.5L/min and now back to sleep with sat at 94%. Original Note: patient is alert and oriented. Noted to mouth breathe and snore when asleep and O2 sats dropping down into low 80's intermittently so placed on oxygen at 2L/min per NC and now sat on continuous oximetry is noted to be in upper 90's so decreased oxygen to 1L/min. Breath sounds are CTA. Denies SOB at rest or when up to bathroom but did develop some right sided chest pain when up to bathroom and was medicated with Tylenol and pain resolved shortly after getting back to bed. HRR but continues to have elevated BP of 167/75. Telemetry reading was SR. Denies nausea. BT present and abdomen is soft. Denies dysuria, frequency or urgency with urination. Is able to turn herself in bed and gets up to bathroom with SBA. Continues on heparin infusion at 1200 units/h. Still with nonpitting edema bilateral LE right > left. Denies pain in legs. Fall risk score is moderate and patient calls for help appropriately. Daughter rooming in.
[2021-02-03] MEDS: DEXTROSE 5%-0.9% NS 1,000 ML 60 ML IV (02:53)
[2021-02-03] MEDS: HEPARIN DRIP 25,000 UNIT/500 ML IV.SOLN 24 UNIT IV (02:56)
[2021-02-03 05:00] VITALS: BP 135/69; PULSE 57; RESP 18; TEMP 36.7; O2SAT 97
[2021-02-03 05:18] LABS: Add Manual Diff / Slide Review NO; Basophils Absolute Auto 0 /uL (0-100); Basophils Percent Auto 0.9 % (0-2); Eosinophils Absolute Auto 300 /uL (0-450); Eosinophils Percent Auto 5.3 % (2-4); Hematocrit 33.1 % (36-46); Hemoglobin 11.1 g/dL (12.0-16.0); Lymphocytes Absolute Auto 1900 /uL (1100-4500); Lymphocytes Percent Auto 34.6 % (25-40); Mean Corpuscular HGB Conc 33.5 % (30-36); Mean Corpuscular Hemoglobin 30.3 PG (26-34); Mean Corpuscular Volume 90.6 fL (80-100); Monocytes Absolute Auto 400 /uL (0-900); Monocytes Percent Auto 7.3 % (3-14); Neutrophils Absolute Auto 2900 /uL (1500-7000); Neutrophils Percent Auto 51.9 % (50-75); Platelet Count 252 X10^3/uL (150-400); Red Blood Cell Count 3.65 X10^6/uL (4.0-5.2); Red Cell Distribution Width 13.9 % (11.6-14.8); White Blood Cell Count 5.6 X10^3/uL (4.5-11.0)
[2021-02-03 05:26] LABS: BUN Creatinine Ratio 19.7 (6-22); Blood Urea Nitrogen 14 mg/dL (7-17); Calcium 8.7 mg/dL (8.4-10.2); Carbon Dioxide 24 mmol/L (22-32); Chloride 109 mmol/L (98-107); Estimated Glomerular Filt Rate > 60.0 mL/min (>60); Glucose 138 mg/dL (80-110); HEMOLYSIS < 15 (0-50); Potassium 3.9 mmol/L (3.4-5.1); Sodium 138 mmol/L (137-145)
[2021-02-03 05:35] LABS: PTT Partial Thromboplastin Tim 109 SECONDS (26.4-36.2)
[2021-02-03 07:41] VITALS: BP 124/69; PULSE 56; RESP 19; TEMP 36.7; O2SAT 98
--- NOTE | 2021-02-03 08:38 | PM.PN.1 ---
Subjective Subjective Date Patient Seen: 02/03/21 Time Patient Seen: 08:38 Interval history: Patient uneventful day yesterday. Has been up and around does not feel bad at all. Exam Vital Signs (past 8 hours): - 02/03/21 05:00 Temperature 98.0 F Pulse Rate 57 L Respiratory Rate 18 Blood Pressure 135/69 Pulse Oximetry 97 Oxygen Delivery Method Nasal Cannula Oxygen Flow Rate 0.5 Objective Labs Result Diagrams: 02/03/21 05:00 02/03/21 05:00 Labs: Laboratory Results - last 24 hr 02/02/21 02/02/21 02/03/21 09:45 15:45 05:00 WBC 5.6 RBC 3.65 L Hgb 11.1 L Hct 33.1 L MCV 90.6 MCH 30.3 MCHC 33.5 RDW 13.9 Plt Count 252 Neut % (Auto) 51.9 Lymph % (Auto) 34.6 Adams % (Auto) 7.3 Eos % (Auto) 5.3 H Baso % (Auto) 0.9 Neut # (Auto) 2900 Lymph # (Auto) 1900 Adams # (Auto) 400 Eos # (Auto) 300 Baso # (Auto) 0 APTT 94 H* D 77 H* D Sodium Potassium Chloride Carbon Dioxide BUN Creatinine Estimated GFR BUN/Creatinine Ratio Glucose Calcium 02/03/21 02/03/21 05:00 05:00 WBC RBC Hgb Hct MCV MCH MCHC RDW Plt Count Neut % (Auto) Lymph % (Auto) Adams % (Auto) Eos % (Auto) Baso % (Auto) Neut # (Auto) Lymph # (Auto) Adams # (Auto) Eos # (Auto) Baso # (Auto) APTT 109 H* D Sodium 138 Potassium 3.9 Chloride 109 H Carbon Dioxide 24 BUN 14 Creatinine 0.71 Estimated GFR > 60.0 BUN/Creatinine Ratio 19.7 Glucose 138 H Calcium 8.7 PFSH Medical History (Updated 02/02/21 @ 06:57 by Shamar Noel MD) Coronary artery disease Depression Diabetes type 2, controlled Essential hypertension History of myocardial infarction Mixed hyperlipidemia Pre-diabetes Ureteropelvic junction (UPJ) obstruction, right Family History Daughter Hyperlipidemia Social History marital status: number of children: 2 household members: family occupational status: previously employed Smoking Status: Never smoker alcohol intake: never caffeine: No Assessment & Plan Assessment & Plan narrative: 1. PE with extensive DVT-continue with unfractionated heparin IV. Echo was performed minutes before I saw her this morning. Assuming it does not show evidence of serious complication which seems unlikely given her clinical stability she can likely be discharged later today. She will continue on unfractionated heparin IV until I have the echo results at least. I will give her an initial dose of Xarelto planning for to continue that at 15 mg twice a day for 21 days then 20 mg daily beyond that. 2. Anemia-patient with mild anemia likely secondary to delusional factors more than anything else. No evidence whatsoever of any source of bleeding GI or otherwise. Will plan to repeat hemoglobin hematocrit and early afternoon to ensure stability prior to discharge 3. Diabetes-fingerstick blood sugar show adequate control although I think do definitely confirm diagnosis of diabetes 4. Renal-no evidence significant renal dysfunction to affect ability to utilize direct oral anticoagulants etcetera Overall assuming no unexpected findings on echo done earlier today likely she can be discharged this afternoon. Note: Greater than 20 minutes was spent evaluating the patient on the floor, including examining the patient, discussing clinical course with clinical and nursing staff, reviewing clinical course in the computer, preparing documentation and writing orders for continued management of care, discussing status with family as appropriate, reviewing plans for the next 24 hours with both patient/family and nursing staff as appropriate.
[2021-02-03 09:00] VITALS: BP 124/69
[2021-02-03] MEDS: lisinopriL 5 MG TABLET PO (09:00)
[2021-02-03] MEDS: ATORVASTATIN 20 MG TABLET 80 MG PO (09:00)
[2021-02-03] MEDS: METOPROLOL IR 25 MG TABLET PO (09:01)
[2021-02-03] MEDS: RIVAROXABAN 10 MG TABLET 15 MG PO ×2 (11:32→17:12)
[2021-02-03 11:38] VITALS: BP 126/65; PULSE 54; RESP 21; TEMP 36.9; O2SAT 97
[2021-02-03 12:47] LABS: Hematocrit 35.2 % (36-46); Hemoglobin 11.6 g/dL (12.0-16.0)
--- NOTE | 2021-02-03 14:09 | PM.DS.1 ---
History of Present Illness History of Present Illness Chief complaint: BP is up around 140 light headed Narrative: 75-year-old female admitted by the emergency department with multiple pulmonary embolism and large right-sided DVT Presented with symptoms of dyspnea with exertion without chest pain palpitations orthopnea or PND. Patient said she feels similar to when she did prior to her myocardial infarction some years ago. Was having some right shoulder pain in addition to the shortness of breath and generalized weakness. ER evaluation revealed the large burden of clot as well as the DVT. No prior history of clotting. No high risk activities or events recently to increase risk for venous thromboembolism. Relatively recently diagnosed with diabetes type 2 based on elevated A1c, as well as elevated blood sugars on routine testing including fasting testing. Has only been seen rarely by her PCP Dr. Toussaint Recently evaluated for evidence of right hydronephrosis after presenting with flank pain and or possible UTI. [place] to have a blood vessel crossing the ureter causing this after urological evaluation. Discharge Providers Provider Date of admission: 02/02/21 04:54 Discharge Date: 02/03/21 Primary care physician: Janna Peralta MD Discharge provider: Shamar Noel MD Summary Hospital Course Discharge Diagnosis: 1. Multiple bilateral pulmonary emboli 2. Right DVT 3. Diabetes type 2 controlled 4. Ureteropelvic junction obstruction right, old 5. Coronary artery disease status post myocardial infarction 6. Hyperlipidemia Hospital Course: Patient was admitted to the hospital over concerns about her multiple bilateral pulmonary emboli and large right-sided DVT placing her at higher risk of acute decompensation related to her pulmonary embolism. She was hemodynamically stable initially and remained so through the course of her hospitalization. She was not hypoxic and did not require supplemental oxygen replacement therapy. She was placed on intravenous unfractionated heparin and therapeutic levels were maintained. Echocardiogram failed to show evidence of significant right heart strain. Therefore given that and her overall clinical stability she was felt to be safe for discharge by the afternoon February 03, 2021. She will be started on Xarelto 15 mg twice daily for 21 days to be followed by 20 mg daily. Some initial hypercoagulable state labs were drawn during this hospitalization will need to be followed up as an outpatient Patient's other medical problems were not active during this hospitalization she continued her routine medications he and will continue aspirin as well as upon discharge in addition to the Xarelto because of her history of myocardial infarction and coronary disease. Exam Vital Signs (past 8 hours): - 02/03/21 07:41 02/03/21 09:00 02/03/21 11:38 Temperature 98.0 F 98.5 F Pulse Rate 56 L 54 L Respiratory Rate 19 21 Blood Pressure 124/69 124/69 126/65 Pulse Oximetry 98 97 Oxygen Delivery Method Nasal Cannula Oxygen Flow Rate 0 Objective Labs Result Diagrams: 02/03/21 12:37 02/03/21 05:00 Labs: Laboratory Results - last 24 hr 02/02/21 02/03/21 02/03/21 15:45 05:00 05:00 WBC 5.6 RBC 3.65 L Hgb 11.1 L Hct 33.1 L MCV 90.6 MCH 30.3 MCHC 33.5 RDW 13.9 Plt Count 252 Neut % (Auto) 51.9 Lymph % (Auto) 34.6 Pitkin % (Auto) 7.3 Eos % (Auto) 5.3 H Baso % (Auto) 0.9 Neut # (Auto) 2900 Lymph # (Auto) 1900 Pitkin # (Auto) 400 Eos # (Auto) 300 Baso # (Auto) 0 APTT 77 H* D Sodium 138 Potassium 3.9 Chloride 109 H Carbon Dioxide 24 BUN 14 Creatinine 0.71 Estimated GFR > 60.0 BUN/Creatinine Ratio 19.7 Glucose 138 H Calcium 8.7 02/03/21 02/03/21 05:00 12:37 WBC RBC Hgb 11.6 L Hct 35.2 L MCV MCH MCHC RDW Plt Count Neut % (Auto) Lymph % (Auto) Pitkin % (Auto) Eos % (Auto) Baso % (Auto) Neut # (Auto) Lymph # (Auto) Pitkin # (Auto) Eos # (Auto) Baso # (Auto) APTT 109 H* D Sodium Potassium Chloride Carbon Dioxide BUN Creatinine Estimated GFR BUN/Creatinine Ratio Glucose Calcium [facility] Medical History Coronary artery disease Depression Diabetes type 2, controlled Essential hypertension History of myocardial infarction Mixed hyperlipidemia Pre-diabetes Ureteropelvic junction (UPJ) obstruction, right Family History Daughter Hyperlipidemia Social History marital status: number of children: 2 household members: family occupational status: previously employed Smoking Status: Never smoker alcohol intake: never caffeine: No Discharge Plan Discharge Plan Patient Disposition: Home Discharge orders & Medications Prescriptions: New Xarelto 15 mg tablet 15 mg PO BID Qty: 42 RF: 0 Continued metoprolol tartrate 25 mg tablet 25 mg PO BID RF: 0 ASPIRIN (Aspir-Low) 81 mg PO QDAY Qty: 0 RF: 0 atorvastatin [Lipitor] 80 MG tablet 80 mg PO QDAY Qty: 0 RF: 0 lisinopril 5 mg tablet See Rx Instructions .ROUTE .COMPLEX Qty: 90 RF: 0 Follow up/Referrals: Janna Peralta MD [Primary Care Provider] - 1 Week Discharge Health Status Multidrug resistant organism: No MDRO Diet/Activity/Treatments Diet: Diet as Tolerated Visit Report/Discharge Packet Instructions: DI for Deep Vein Thrombosis, DI for Pulmonary Embolism, Rivaroxaban Discharge Data Primary Care Provider: Janna Peralta
[2021-02-03 16:22] VITALS: BP 127/65; PULSE 61; RESP 18; TEMP 36.3; O2SAT 98
--- NOTE | 2021-02-03 17:51 | PC.NURSE ---
Discharge Note Patient A&O, VSS, RA. No complaints of pain or discomfort. Discharge packet reviewed with patient and daughter. All questions/concerns answered. Tele/Midline/PIV discontinued without incident. All belongings packed and given to patient along with discharge packet. Patient taken down via wheelchair to POV.
[2021-02-04 08:28] LABS: Antithrombin Activity 86 % (75-135); Antithrombin Antigen 88 % (72-124); Protein C-Functional 81 % (73-180); Protein S-Functional 86 % (63-140)
[2021-02-14 12:47] LABS: Cardiolipin IgA Negative
== END 2021-02-03 17:50 | disposition home or self-care (01) | DRG 301 ==
LOC: ED 02-02 04:53 → AC 02-02 04:55
PROVIDERS: Admitting Provider Internal Medicine; Emergency Provider Emergency Medicine; Family Provider Internal Medicine Cardiovascular Disease; PCP Family Medicine; Referring Provider Emergency Medicine; Visit Provider Family Medicine
DX: I82.431 Acute embolism and thrombosis of right popliteal vein (principal); E11.9 Type 2 diabetes mellitus without complications; I25.10 Atherosclerotic heart disease of native coronary artery without angina pectoris; E78.2 Mixed hyperlipidemia; I10 Essential (primary) hypertension; Z20.822 Contact with and (suspected) exposure to COVID-19; D64.9 Anemia, unspecified; N13.5 Crossing vessel and stricture of ureter without hydronephrosis
CPT/HCPCS: 36415; 36592; 71045; 71275; 80048; 80053; 80061; 81241; 82550; 82553; 82962; 83520; 83690; 83880; 84484; 85014; 85018; 85025; 85300; 85301; 85303; 85306; 85379; 85610; 85730; 86147; 87635; 93005; 93306; 93971; 94762; 96374; 99223; 99238; 99285; C9803; J1644; Q9967

== ENCOUNTER → 2021-05-09 08:23 | Outpatient (CLI) | payer MEDICARE, SELFPAY ==
[2021-02-02 05:26] VITALS: BMI 33.3
[2021-05-09 11:01] LABS: Hemoglobin A1C% w Est Avg Glu 6.1 % (4.0-6.0)
== END ==
PROVIDERS: Family Provider Internal Medicine Cardiovascular Disease; PCP Family Medicine; Referring Provider Family Medicine; Visit Provider Family Medicine
DX: R73.03 Prediabetes (principal)
CPT/HCPCS: 36415; 83036

== ENCOUNTER → 2021-05-11 07:06 | Outpatient (CLI) | payer MEDICARE, SELFPAY ==
[2021-02-02 05:26] VITALS: BMI 33.3
--- NOTE | 2021-05-11 07:07 | DI.US.S_ITS ---
PROCEDURE: US [facility] VENOUS LOW EXTREM RT INDICATIONS: PERSISTANT EDEMA; RECENT DVT TECHNIQUE: Real-time imaging, as well as color and pulse Doppler interrogation, were performed of the lower extremity deep veins from the inguinal ligament to the popliteal fossa. COMPARISON: [facility], [facility] VENOUS LOW EXTREM RT, 02/02/2021, 4:14. FINDINGS: The common femoral, femoral and popliteal veins are normally compressible, and free of intraluminal thrombus. Color and pulse Doppler demonstrate normal phasic intraluminal flow. There is normal augmentation response to distal compression maneuver. IMPRESSION: No deep venous thrombosis. Dictated by: Ignacia Francis M.D. on 05/11/2021 at 9:03 Approved by: Ignacia Francis M.D. on 05/11/2021 at 9:03
== END ==
PROVIDERS: Family Provider Internal Medicine Cardiovascular Disease; PCP Family Medicine; Referring Provider Family Medicine; Visit Provider Family Medicine
DX: I82.409 Acute embolism and thrombosis of unspecified deep veins of unspecified lower extremity (principal); I26.99 Other pulmonary embolism without acute cor pulmonale
CPT/HCPCS: 93971

== ENCOUNTER → 2021-06-28 07:54 | Outpatient (CLI) | payer MEDICARE, SELFPAY ==
[2021-02-02 05:26] VITALS: BMI 33.3
[2021-06-28 09:48] LABS: Add Manual Diff / Slide Review NO; Basophils Absolute Auto 0 /uL (0-100); Basophils Percent Auto 0.9 % (0-2); Eosinophils Absolute Auto 100 /uL (0-450); Eosinophils Percent Auto 2.9 % (2-4); Hematocrit 40.2 % (36-46); Hemoglobin 13.6 g/dL (12.0-16.0); Lymphocytes Absolute Auto 1700 /uL (1100-4500); Lymphocytes Percent Auto 34.8 % (25-40); Mean Corpuscular HGB Conc 33.7 % (30-36); Mean Corpuscular Hemoglobin 31.2 PG (26-34); Mean Corpuscular Volume 92.5 fL (80-100); Monocytes Absolute Auto 300 /uL (0-900); Monocytes Percent Auto 6.5 % (3-14); Neutrophils Absolute Auto 2700 /uL (1500-7000); Neutrophils Percent Auto 54.9 % (50-75); Platelet Count 223 X10^3/uL (150-400); Red Blood Cell Count 4.35 X10^6/uL (4.0-5.2); Red Cell Distribution Width 13.2 % (11.6-14.8); White Blood Cell Count 4.8 X10^3/uL (4.5-11.0)
[2021-06-28 09:58] LABS: Prothrombin Time 11.3 SECONDS (10.1-12.7)
[2021-06-28 10:01] LABS: PTT Partial Thromboplastin Tim 22 SECONDS (26.4-36.2)
[2021-06-30 09:55] LABS: Antithrombin Activity 106 % (75-135); Antithrombin Antigen 94 % (72-124)
[2021-06-30 10:15] LABS: Dilute Russell Viper Venom 33.3 sec (0.0-47.0); Lupus Reflex Interpretation Comment: (.)
[2021-06-30 14:32] LABS: Protein C Antigen 99 % (60-150)
[2021-07-26 14:28] LABS: Cardiolipin IgA Negative
== END ==
PROVIDERS: Family Provider Internal Medicine Cardiovascular Disease; PCP Family Medicine; Referring Provider Family Medicine; Visit Provider Family Medicine
DX: I26.94 Multiple subsegmental thrombotic pulmonary emboli without acute cor pulmonale (principal); I82.401 Acute embolism and thrombosis of unspecified deep veins of right lower extremity
CPT/HCPCS: 36415; 81241; 83520; 85025; 85300; 85301; 85302; 85598; 85610; 85613; 85730; 86147; 86148

== ENCOUNTER → 2021-09-07 08:57 | Outpatient (CLI) | payer MEDICARE, SELFPAY ==
[2021-02-02 05:26] VITALS: BMI 33.3
--- NOTE | 2021-09-07 08:58 | DI.RAD.S_ITS ---
PROCEDURE: XR KNEE RT 3V INDICATIONS: Right knee pain TECHNIQUE: 3 views of the knee were acquired. COMPARISON: None. FINDINGS: Bones: No fractures or dislocations. No suspicious bony lesions. Medial compartment osteophytosis. Soft tissues: No joint effusion. No suspicious soft tissue calcifications. IMPRESSION: No acute osseous abnormality. Dictated by: Mayito Monroe M.D. on 09/07/2021 at 9:07 Approved by: Mayito Monroe M.D. on 09/07/2021 at 9:16
== END ==
PROVIDERS: Family Provider Internal Medicine Cardiovascular Disease; PCP Family Medicine; Referring Provider Family Medicine; Visit Provider Family Medicine
DX: M25.761 Osteophyte, right knee (principal)
CPT/HCPCS: 73562

== ENCOUNTER → 2021-10-31 09:23 | Outpatient (CLI) | payer MEDICARE, SELFPAY ==
[2021-02-02 05:26] VITALS: BMI 33.3
[2021-10-31 14:45] LABS: COVID19 -Nasal RAPID POSITIVE (Negative)
== END ==
PROVIDERS: Family Provider Internal Medicine Cardiovascular Disease; PCP Family Medicine; Visit Provider Physician Assistant
DX: U07.1 COVID-19 (principal); Z20.822 Contact with and (suspected) exposure to COVID-19; R05.9 Cough, unspecified
CPT/HCPCS: 87635

== ENCOUNTER → 2021-11-05 10:23 | Outpatient (CLI) | payer MEDICARE, SELFPAY ==
[2021-02-02 05:26] VITALS: BMI 33.3
[2021-11-08 14:08] LABS: Protein C Antigen 86 % (60-150)
== END ==
PROVIDERS: Family Provider Internal Medicine Cardiovascular Disease; PCP Family Medicine; Referring Provider Family Medicine; Visit Provider Family Medicine
DX: I26.94 Multiple subsegmental thrombotic pulmonary emboli without acute cor pulmonale (principal); I82.401 Acute embolism and thrombosis of unspecified deep veins of right lower extremity
CPT/HCPCS: 36415; 85302

== ENCOUNTER 2021-11-19 14:18 | Emergency (ER) | payer MEDICARE, SELFPAY ==
[2021-02-02 05:26] VITALS: BMI 33.3
[2021-11-19 14:26] VITALS: BP 179/79; PULSE 69; RESP 18; TEMP 36.7; O2SAT 96; BMI 34.3
--- NOTE | 2021-11-19 14:44 | ED_ITS ---
HPI - Extremity Problem General Chief complaint: Extremity Problem,Nontraumatic Stated complaint: pos. blood clot sent from [facility] Time Seen by Provider: 11/19/21 14:44 Source: patient Mode of arrival: Ambulatory Limitations: no limitations History of Present Illness HPI Narrative: Patient is a 76-year-old female who has had a DVT/PE in the past. Was on Xarelto for several months but then this was discontinued by her primary provider. There is no specific etiology of the blood clot found. She returns today for several days of swelling and pain in her right lower extremity. States some of the symptoms is similar to her prior history of DVT. She denies any current chest pain or shortness of breath. No recent travel. No specific trauma. Was sent from the walk-in clinic for evaluation of potential blood clot. Related Data Home Medications Medication Instructions Recorded Confirmed atorvastatin 80 mg tablet (Lipitor) 80 mg PO QDAY #0 05/08/11 11/08/21 metoprolol tartrate 25 mg tablet 25 mg PO BID 10/08/18 11/08/21 aspirin 81 mg tablet,delayed 81 mg PO DAILY 07/21/21 11/08/21 release (Adult Aspirin Regimen) Previous Rx's Medication Instructions Recorded lisinopril 20 mg tablet 20 mg PO DAILY #90 tab 09/07/21 rivaroxaban 15 mg tablet (Xarelto) 15 mg PO BID 21 Days #42 tab 11/19/21 Allergies Allergy/AdvReac Type Severity Reaction Status Date / Time No Known Drug Allergies Allergy Verified 09/07/21 08:26 Review of Systems Constitutional Constitutional: Denies fever(s) and Denies headache(s) ENT Ears, Nose, Mouth, and Throat: Denies headache(s) Cardiovascular Cardiovascular: Reports as per HPI and Reports system reviewed and no additional complaints, except as documented Respiratory Respiratory: Reports as per HPI and Reports system reviewed and no additional complaints, except as documented Musculoskeletal Musculoskeletal: Reports system reviewed and no additional complaints, except as documented and Reports as per HPI Integumentary/Breasts Skin/Breast: Reports system reviewed and no additional complaints, except as documented Neurologic Neurologic: Denies headache(s) Psychiatric Psychiatric: Reports system reviewed and no additional complaints, except as documented Hematologic/Lymphatic On Anticoagulants: No Patient History Medical History Coronary artery disease Depression Diabetes type 2, controlled Essential hypertension History of myocardial infarction Mixed hyperlipidemia Pre-diabetes Ureteropelvic junction (UPJ) obstruction, right Family History Daughter Hyperlipidemia Social History marital status: number of children: 2 household members: family occupational status: previously employed Smoking Status: Never smoker alcohol intake: never caffeine: No Smoking Status: Never smoker alcohol intake frequency: 0-2 drinks per day Substance Use Type: does not use Exam Initial Vital Signs Initial Vital Signs: Vital Signs Temperature 98.1 F 11/19/21 14:26 Pulse Rate 69 11/19/21 14:26 Respiratory Rate 18 11/19/21 14:26 Blood Pressure 179/79 H 11/19/21 14:26 Pulse Oximetry 96 11/19/21 14:26 HENMT Head: normal to inspection and normocephalic Resp Effort & Inspection: normal respiratory effort Cardio Rate: regular rate Skin General: no rashes or lesions noted Extrem Other: Patient does have circumferential swelling of her right lower extremity from her foot up to her mid thigh. Does have full range of motion of the knee. And ankle. Psych Appearance: grossly normal and well kempt Course Orders Ordered: ED Orders 11/19/21 14:45 US periph venous low extrem rt Stat Discontinued Medications Rivaroxaban (Rivaroxaban 10 Mg Tablet) 15 mg PO NOW ONE Stop: 11/19/21 16:24 Vital Signs Vital signs: Vital Signs - 8 hr 11/19/21 14:26 Temperature 98.1 F Pulse Rate 69 Respiratory Rate 18 Blood Pressure 179/79 H Pulse Oximetry 96 MDM - Extremity (Nontraumatic) Imaging Data US - DVT: Radiologist's Impression: [address] [address] Ultrasound Report Signed Patient: Raisa Thomas MR#: [id number] : 1945 Acct:[id number] Age/Sex: 76 / F Date of Service: 11/19/21 Loc: ED Accession Number: [id number] ?? Procedure: US periph venous low extrem rt Ordering Provider: Brennen Corral D.O. PROCEDURE:? US PERIPH VENOUS LOW EXTREM RT ? INDICATIONS:? eval for DVT ? TECHNIQUE:? Real-time imaging, as well as color and pulse Doppler interrogation, were performed of the lower extremity deep veins from the inguinal ligament to the popliteal fossa.? ? COMPARISON:? [facility], PERIP VENOUS LOW EXTREM RT, 02/02/2021, 4:14.? [facility], PERIP VENOUS LOW EXTREM RT, 05/11/2021, 7:29. ? FINDINGS:? Extensive occlusive right lower extremity deep venous thrombosis is seen extending from the common femoral vein through the popliteal vein.? Clot is also seen within the proximal deep femoral vein. ? ? ? IMPRESSION:? Extensive right lower extremity deep venous thrombosis is seen. ? ? Dictated by: Dakotah Todd M.D. on 11/19/2021 at 15:04 ? ? Approved by: Dakotah Todd M.D. on 11/19/2021 at 15:06?? MDM Narrative Medical decision making narrative: No chest pain. No shortness of breath. Does have a right lower extremity DVT. Patient has been on Xarelto in the past. Will start on this medication once again. She is neurovascularly intact. I did consider other etiologies such as pulmonary embolism however given her lack of tachypnea, chest pain, shortness of breath, hypoxia feel that this is unlikely. No indication for admission hospital. Patient will contact her primary doctor for further workup. She was given return precautions. She expressed understanding and agreement. Discharge Plan Departure Patient Disposition: Home Clinical Impression: DVT (deep venous thrombosis) Instructions: DI for Deep Vein Thrombosis Activity Restrictions/Additional Instructions: Continues take all of your medications as directed. We will restart you on the medicine called Xarelto. This medicine is 15 mg 2 times a day for 21 days and then it will change to 20 mg once a day. The prescription you were given today is for the 1st 21 days of the medication. You will need to contact your primary doctor to continue on the long-term doses medication. Contact your primary doctor to discuss your elevation in blood pressure as well. Return to the emergency department for any chest pain shortness of breath. Prescriptions: New Xarelto 15 mg tablet 15 mg PO BID 21 Days Qty: 42 0RF Rx Instructions: must administer with evening meal No Action lisinopril 20 mg tablet 20 mg PO DAILY Qty: 90 3RF metoprolol tartrate 25 mg tablet 25 mg PO BID 0RF atorvastatin [Lipitor] 80 MG tablet 80 mg PO QDAY Qty: 0 0RF aspirin [Adult Aspirin Regimen] 81 mg tablet,delayed release (DR/EC) 81 mg PO DAILY 0RF Referrals: Janna Peralta MD [Primary Care Provider] -
--- NOTE | 2021-11-19 14:45 | DI.US.S_ITS ---
PROCEDURE: PERIP VENOUS LOW EXTREM RT INDICATIONS: eval for DVT TECHNIQUE: Real-time imaging, as well as color and pulse Doppler interrogation, were performed of the lower extremity deep veins from the inguinal ligament to the popliteal fossa. COMPARISON: [facility], [facility] VENOUS LOW EXTREM RT, 02/02/2021, 4:14. [facility], [facility] VENOUS LOW EXTREM RT, 05/11/2021, 7:29. FINDINGS: Extensive occlusive right lower extremity deep venous thrombosis is seen extending from the common femoral vein through the popliteal vein. Clot is also seen within the proximal deep femoral vein. IMPRESSION: Extensive right lower extremity deep venous thrombosis is seen. Dictated by: Dakotah Todd M.D. on 11/19/2021 at 15:04 Approved by: Dakotah Todd M.D. on 11/19/2021 at 15:06
[2021-11-19] MEDS: RIVAROXABAN 10 MG TABLET 15 MG PO (16:36)
[2021-11-19 16:49] VITALS: BP 188/88; PULSE 61; RESP 20; TEMP 36.8; O2SAT 98
== END 2021-11-19 16:51 | disposition home or self-care (01) ==
PROVIDERS: Emergency Provider Emergency Medicine; Family Provider Internal Medicine Cardiovascular Disease; PCP Family Medicine
DX: I82.411 Acute embolism and thrombosis of right femoral vein (principal); I82.431 Acute embolism and thrombosis of right popliteal vein
CPT/HCPCS: 93971; 99283

== ENCOUNTER → 2021-12-31 10:22 | Outpatient (CLI) | payer MEDICARE, SELFPAY ==
[2021-02-02 05:26] VITALS: BMI 33.3
[2021-12-31 11:38] LABS: Add Manual Diff / Slide Review NO; Basophils Absolute Auto 0 /uL (0-100); Eosinophils Absolute Auto 200 /uL (0-450); Hematocrit 39.1 % (36-46); Hemoglobin 12.9 g/dL (12.0-16.0); Lymphocytes Absolute Auto 1700 /uL (1100-4500); Lymphocytes Percent Auto 41.6 % (25-40); Monocytes Absolute Auto 400 /uL (0-900); Monocytes Percent Auto 8.7 % (3-14); Neutrophils Absolute Auto 1800 /uL (1500-7000); Neutrophils Percent Auto 44.7 % (50-75); Platelet Count 240 X10^3/uL (150-400); Red Cell Distribution Width 15.6 % (11.6-14.8); White Blood Cell Count 4.1 X10^3/uL (4.5-11.0)
[2021-12-31 11:44] LABS: BUN Creatinine Ratio 26.1 (6-22); Blood Urea Nitrogen 24 mg/dL (7-17); Calcium 9.9 mg/dL (8.4-10.2); Carbon Dioxide 26 mmol/L (22-32); Chloride 107 mmol/L (98-107); Cholesterol 144 mg/dL (140-199); Estimated Glomerular Filt Rate 59.2 mL/min (>60); Glucose 112 mg/dL (80-110); HDL Cholesterol 56 mg/dL (40-60); HEMOLYSIS < 15 (0-50); LDL Cholesterol Calculated 62 mg/dL (<100); Potassium 4.6 mmol/L (3.4-5.1); Sodium 140 mmol/L (137-145); Triglycerides 130 mg/dL (35-150)
== END ==
PROVIDERS: Family Provider Family Medicine; PCP Family Medicine; Referring Provider Internal Medicine Cardiovascular Disease; Visit Provider Internal Medicine Cardiovascular Disease
DX: E78.5 Hyperlipidemia, unspecified (principal); I10 Essential (primary) hypertension
CPT/HCPCS: 36415; 80048; 80061; 85025

== ENCOUNTER 2022-04-03 08:15 | Outpatient (RCR) | payer MEDICARE, SELFPAY ==
[2021-02-02 05:26] VITALS: BMI 33.3
--- NOTE | 2022-01-11 20:15 | PT.OIE ---
Current Diagnoses Acute embolism and thrombosis of unspecified deep veins of unspecified lower extremity (01/11/22) Pain in right knee (01/11/22) Difficulty in walking, not elsewhere classified (01/11/22) Weakness (01/11/22) Past Medical History (Last Reviewed 11/19/21 @ 16:29 by Brennen Corral DO) Coronary artery disease Depression Diabetes type 2, controlled Essential hypertension History of myocardial infarction Mixed hyperlipidemia Pre-diabetes Ureteropelvic junction (UPJ) obstruction, right Visit Care Team Role Provider Type Janna Peralta MD Attending Provider Physician Family Provider Primary Care Provider Referring Provider Specialty: [facility] Practice Address: [address] [place] [address], [facility] Email: [email or web address] Physical Therapy Initial Evaluation PT-OP-A Visit Information Start: 01/10/22 12:06 Freq: Status: Active Protocol: Document 01/11/22 09:06 SAK (Rec: 01/11/22 09:51 [facility] [id number]) Out-Patient Physical Therapy Visit Information Visit Information Visit Type Initial Evaluation Visit Start Time 09:00 Visit Stop Time 09:56 Total Visit Minutes 56 Visit Number 1 Evaluation Information Evaluation Date 01/11/22 Precautions Precautions history of blood clots; on long-term anticoagulation, DM Type II, history [place] PT-OP-B Current Condition Start: 01/10/22 12:06 Freq: Status: Active Protocol: Document 01/11/22 09:06 SAK (Rec: 01/11/22 09:51 [facility] [id number]) Current Condition History of Current Condition Onset Date 6 months Current Complaints right knee pain History of Current Condition Right knee pain no known reason except patient thinks possibly due to [employer] 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 Typically ok when doing work, as soon as gets in car feels pain, goes home and ices. Interrupts her sleep. Hasn't used cane or other device. Step-to pattern on stairs due to pain. Over past week has had some improvements but persists. Denies swelling from knee pain but did previously due to clot in knee x 2 . Now taking blood thinners. Denies clicking, popping, giving way. No current exercise program, reports I watch a lot of TV. Prior Treatments and Tests x-ray: negative for osseus abnormality. Future Testing and Treatments Planned return to doctor if PT not helpful. Treatment Goals Patient/Caregiver Goals minimize knee pain, be able to sleep without pain, be able to complete [employer] work without an increase in pain Prior Functional Status Baseline Function- ADL's Independent Baseline Function- Mobility Independent Baseline Function- Gait independent without device Baseline Function- Work/School retired, does [employer] work at [employer] Current Functional Impairments (Reported) Functional Limitations- ADL's painful Functional Limitations- Mobility/Gait painful Functional Limitations- Work/School painful after [employer] work Functional Limitations- Recreation/ none identified Hobbies Personal Factors Other Personal Factors That May Effect low activity level Therapy/Recovery PT-OP-C Subjective Start: 01/10/22 12:06 Freq: Status: Active Protocol: Document 01/11/22 09:06 [facility] (Rec: 01/11/22 20:14 [facility] [id number]) Patient Questionnaires Lower Extremity Functional Scale LEFS Score 54 OP-PT Pain Assessment Pain Assessment Grid Paper Pain Assessment Grid Completed Yes Location anterior/medial right knee Intensity 6 Scale Used Numeric (0 - 10) Description Aching,Pressure,Tender, Tightness Frequency Frequent Pain Aggravating Factors Activity Pain Alleviating Factors Medication Home Pain Medication Use Pain Medications Used Yes: Tylenol Pain Behaviors Pain Behaviors Facial Grimacing,Wincing PT-OP-G Mobility & Gait Start: 01/10/22 12:06 Freq: Status: Active Protocol: Document 01/11/22 09:06 [facility] (Rec: 01/11/22 20:14 [facility] [id number]) OP Mobility Evaluation Transfers Sit to Stand indep, decreased weightpbearing through right LE, uses hands Functional Movements Squats painful OP Gait Assessment Gait Gait Assistance Required: Independent Assistive Devices Assistive Device None Gait Deviations General Gait Pattern Decreased Stride Length, Decreased Feet Clearance Stair Climbing Evaluation Evaluation Level of Assist On Stairs Standby Assistance Devices Stair Climbing Assistive Devices Left Railing,Right Railing Technique/Endurance Stair Climbing Technique Step to Step PT-OP-H Neuro Start: 01/10/22 12:06 Freq: Status: Active Protocol: Document 01/11/22 09:06 [facility] (Rec: 01/11/22 20:14 [facility] [id number]) Sensation Evaluation Gross Sensation Gross Sensation WNL Comments Summary Comments denies N/T, giving way PT-OP-J Posture/Palpation/Skin Start: 01/10/22 12:06 Freq: Status: Active Protocol: Document 01/11/22 09:06 [facility] (Rec: 01/11/22 20:14 [facility] [id number]) Posture Evaluation Position Standing Knee Posture (R) Genu Varus,(R) Ext. Tibial Torsion Ankle/Foot Posture (R) Pronated,(R) Calcaneal Eversion,(R) Forefoot Eversion Palpation Assessment Location right knee Palpation Location medial joint line Palpation Findings Tenderness Skin Assessment Edema Assessment right knee Edema Type Non-Pitting Edema Degree 2+ PT-OP-K Range of Motion Start: 01/10/22 12:06 Freq: Status: Active Protocol: Document 01/11/22 09:06 [facility] (Rec: 01/11/22 20:14 [facility] [id number]) Hip Goniometric Range of Motion Hip felisa Comments SLR right 65, left 55 otherwise bilateral hips WNL Hip ROM Limitations Hip ROM Limitations Soft Tissue Tightness Knee Goniometric Range of Motion Knee Right Flexion Active (degrees) 123 Extension Active (degrees) 0 Left Flexion Active (degrees) 119 Extension Active (degrees) 0 Knee ROM Limitations Knee ROM Limitations Soft Tissue Tightness Comments mod tightness left quads, mild tightness right quads Ankle and Foot Goniometric Range of Motion Ankle and Foot felisa Ankle/Foot ROM WFL Yes PT-OP-L Special Tests Start: 01/10/22 12:06 Freq: Status: Active Protocol: Document 01/11/22 09:06 [facility] (Rec: 01/11/22 20:14 [facility] [id number]) Special Tests Knee Special Tests Luke Test Test Results negative Patellar Grind Test Test Results negative Anterior Draw Test Results negative PT-OP-M Strength Start: 01/10/22 12:06 Freq: Status: Active Protocol: Document 01/11/22 09:06 [facility] (Rec: 01/11/22 20:14 [facility] [id number]) Knee Strength Knee Manual Muscle Testing Right Flexion (S2) 4 Good Extension (L3) 4 Good Left Flexion (S2) 5 Normal Extension (L3) 4+ Good+ Ankle/Foot Strength Ankle and Foot Manual Muscle Testing Right Dorsiflexion (L4) 4 Good Plantarflexion (S1) 4 Good Inversion 4 Good Eversion (S1) 4 Good Left Dorsiflexion (L4) 4+ Good+ Plantarflexion (S1) 4+ Good+ Inversion 4+ Good+ Eversion (S1) 4+ Good+ PT-OP-Q Treatments Start: 01/10/22 12:06 Freq: Status: Active Protocol: Document 01/11/22 09:06 [facility] (Rec: 01/11/22 20:14 [facility] [id number]) Self-Care/Home Management Treatment Education Patient Education Home Exercise Program,Pain Management,Posture Other Education Discussed footwear; patient's sole of right shoe showing uneven wear with increased medial wear for LE alignment. Discussed knee alignment and tibial shape and likely contributions to symptoms. Discussed good alignment and body mechanics when vacuuming with [employer] job. Patient demonstrated good understanding of all. Issued written HEP. Activities Self-Care/Home Management Activities Don't wear any shoes that are showing uneven wear, wear shoes with wider sole for better support. PT-OP-R Modalities Start: 01/10/22 12:06 Freq: Status: Active Protocol: Document 01/11/22 09:06 [facility] (Rec: 01/11/22 20:14 [facility] [id number]) Hot Pack/Cold Pack Treatment Cold Pack Location right knee (under and on top) Patient Position Hooklying Treatment Duration (minutes) 10 Patient Tolerance Good PT-OP-T Assessment and Plan Start: 01/10/22 12:06 Freq: Status: Active Protocol: Document 01/11/22 09:06 [facility] (Rec: 01/11/22 20:14 [facility] [id number]) Physical Therapy Assessment Rehab Potential Rehabilitation Potential Good Evaluation Complexity Number of Personal Factors/Comorbidities 1-2 Number of Body Systems Impaired 3 Clinical Presentation at Evaluation Evolving Impairments Impairments Activity Tolerance,Gait,Pain, Strength Goals Three Impairment gait impairment, step-to pattern on stairs [facility] Goal (LTG) patient able to ascend and descend stairs with alternating pattern and ambulate on level surface with minimal compensation to improve her function at home and in the community. LTG Duration 03/12/22 Two Impairment weakness right LE Short Term Goal (STG) Patient to be independent and compliant with HEP with purpose of strengthening right LE STG Duration 02/10/22 [facility] Goal (LTG) Patient to demonstrate improved right LE strength to at least 4+/5 all muscle groups to improve her ability to do her usual activities LTG Duration 5/15/22 One Impairment pain right knee as high as 6/ 10 limiting activity tolerance and sleep [facility] Goal (LTG) Decrease right knee pain to no greater than 2/10 with all usual activities and patient able to sleep without being wakened due to knee pain. LTG Duration 03/12/22 Assessment Summary Assessment Patient presents to PT with function-limiting right knee pain. Signs and symptoms consistent with meniscal involvement with patient demonstrating significant genu varus, forefoot and hindfoot eversion, and external tibial torsion which appear contributory. Patient right shoe shoes excessive wear medially indicating impairment in heelstrike and gait mechanics. Recommended she examine all her shoes and not wear any that show that excess medial wear. Weakness noted throughout right knee and hip. She has very low activity level. Feel she will benefit from PT to decrease her pain, improve her strength and gait mechanics as able to improve her quality of life and ability to do her usual activities. Physical Therapy Plan Frequency and Duration Frequency of Treatment 2x/Week Duration of Treatment 8 weeks Plan of Care Start Date 01/11/22 Plan of Care End Date 03/12/22 Therapeutic Interventions Therapeutic Interventions Aquatic Therapy,Gait Training, Home Exercise Program,Joint Mobilizations,Manual Therapy, Neuromuscular Re-education, Patient/Caregiver Education, Self-Care/Home Management,Soft Tissue Mobilization,Taping, Therapeutic Activities, Therapeutic Exercises Modalities Cold Pack/Ice Massage,Electric Stimulation,Hot Packs, Ultrasound Next Visit Focus/Plan Next Note Type Treatment Note Next Visit Plan Start with recumbant elliptical with emphasis on LE alignment. Review HEP, discuss footwear. Add shuttle leg press, SLR, s/l hip abduction as tolerated. Consider kinesiotape for pain and edema reduction.
--- NOTE | 2022-01-11 20:15 | PT.OPPOC ---
Physical, Occupational & Speech Therapy At Located Within [facility] Current Diagnoses Acute embolism and thrombosis of unspecified deep veins of unspecified lower extremity (01/11/22) Pain in right knee (01/11/22) Difficulty in walking, not elsewhere classified (01/11/22) Weakness (01/11/22) Visit Care Team Role Provider Type Janna Peralta MD Attending Provider Physician Family Provider Primary Care Provider Referring Provider Specialty: Family Practice Address: [address] [place] [address], [facility] Email: [email or web address] Plan Of Care PT-OP-T Assessment and Plan Start: 01/10/22 12:06 Freq: Status: Active Protocol: Document 01/11/22 09:06 JOSH (Rec: 01/11/22 20:14 [facility] [id number]) Physical Therapy Assessment Rehab Potential Rehabilitation Potential Good Evaluation Complexity Number of Personal Factors/Comorbidities 1-2 Number of Body Systems Impaired 3 Clinical Presentation at Evaluation Evolving Impairments Impairments Activity Tolerance,Gait,Pain, Strength Goals Three Impairment gait impairment, step-to pattern on stairs Park Activities Coordinator Goal (LTG) patient able to ascend and descend stairs with alternating pattern and ambulate on level surface with minimal compensation to improve her function at home and in the community. LTG Duration 03/12/22 Two Impairment weakness right LE Short Term Goal (STG) Patient to be independent and compliant with HEP with purpose of strengthening right LE STG Duration 02/10/22 [facility] Activities Coordinator Goal (LTG) Patient to demonstrate improved right LE strength to at least 4+/5 all muscle groups to improve her ability to do her usual activities LTG Duration 03/12/22 One Impairment pain right knee as high as 6/ 10 limiting activity tolerance and sleep [facility] Activities Coordinator Goal (LTG) Decrease right knee pain to no greater than 2/10 with all usual activities and patient able to sleep without being wakened due to knee pain. LTG Duration 03/12/22 Assessment Summary Assessment Patient presents to PT with function-limiting right knee pain. Signs and symptoms consistent with meniscal involvement with patient demonstrating significant genu varus, forefoot and hindfoot eversion, and external tibial torsion which appear contributory. Patient right shoe shoes excessive wear medially indicating impairment in heelstrike and gait mechanics. Recommended she examine all her shoes and not wear any that show that excess medial wear. Weakness noted throughout right knee and hip. She has very low activity level. Feel she will benefit from PT to decrease her pain, improve her strength and gait mechanics as able to improve her quality of life and ability to do her usual activities. Physical Therapy Plan Frequency and Duration Frequency of Treatment 2x/Week Duration of Treatment 8 weeks Plan of Care Start Date 01/11/22 Plan of Care End Date 03/12/22 Therapeutic Interventions Therapeutic Interventions Aquatic Therapy,Gait Training, Home Exercise Program,Joint Mobilizations,Manual Therapy, Neuromuscular Re-education, Patient/Caregiver Education, Self-Care/Home Management,Soft Tissue Mobilization,Taping, Therapeutic Activities, Therapeutic Exercises Modalities Cold Pack/Ice Massage,Electric Stimulation,Hot Packs, Ultrasound Next Visit Focus/Plan Next Note Type Treatment Note Next Visit Plan Start with recumbant elliptical with emphasis on LE alignment. Review HEP, discuss footwear. Add shuttle leg press, SLR, s/l hip abduction as tolerated. Consider kinesiotape for pain and edema reduction. Plan of Care Dates Plan of Care Start Date 01/11/22 Plan of Care End Date 03/12/22 Electronically Signed by: Alix Wynne PT 01/11/222014 Please Sign and Return: I have reviewed this Plan of Care and certify that the skilled therapy services above are required to meet the patient?s needs. Physician Signature Date Printed Name and Credentials Clinical Instructor Signature Printed Name and Credentials
--- NOTE | 2022-01-17 15:47 | PT.OTN ---
Current Diagnoses Acute embolism and thrombosis of unspecified deep veins of unspecified lower extremity (01/17/22) Pain in right knee (01/17/22) Difficulty in walking, not elsewhere classified (01/17/22) Weakness (01/17/22) Physical Therapy Treatment Note PT-OP-A Visit Information Start: 01/10/22 12:06 Freq: Status: Active Protocol: Document 01/17/22 13:01 SAK (Rec: 01/17/22 13:48 SAK [id number]) Out-Patient Physical Therapy Visit Information Visit Information Visit Type Initial Evaluation Visit Start Time 13:00 Visit Stop Time 12:57 Total Visit Minutes 57 Visit Number 2 Evaluation Information Evaluation Date 01/11/22 Precautions Precautions history of blood clots; on long-term anticoagulation, DM Type II, history [place] PT-OP-B Current Condition Start: 01/10/22 12:06 Freq: Status: Active Protocol: Document 01/17/22 13:01 SAK (Rec: 01/17/22 13:48 SAK [id number]) Current Condition History of Current Condition Onset Date 6 months Current Complaints right knee pain History of Current Condition Right knee pain no known reason except patient thinks possibly due to [employer] 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 Typically ok when doing work, as soon as gets in car feels pain, goes home and ices. Interrupts her sleep. Hasn't used cane or other device. Step-to pattern on stairs due to pain. Over past week has had some improvements but persists. Denies swelling from knee pain but did previously due to clot in knee x 2 . Now taking blood thinners. Denies clicking, popping, giving way. No current exercise program, reports I watch a lot of TV. Prior Treatments and Tests x-ray: negative for osseus abnormality. Future Testing and Treatments Planned return to doctor if PT not helpful. Treatment Goals Patient/Caregiver Goals minimize knee pain, be able to sleep without pain, be able to complete [employer] work without an increase in pain PT-OP-C Subjective Start: 01/10/22 12:06 Freq: Status: Active Protocol: Document 01/17/22 13:01 SAK (Rec: 01/17/22 13:48 SAK [id number]) OP-PT Subjective Patient Comments Patient Comments Knee has been feeling better. Has done HEP. States daughter brought her a small cycler that you set on floor for her to use, but wanted to talk with PT first before using. Wearing better shoes today. PT-OP-G Mobility & Gait Start: 01/10/22 12:06 Freq: Status: Active Protocol: Document 01/11/22 09:06 SAK (Rec: 01/11/22 20:14 [facility] [id number]) OP Mobility Evaluation Transfers Sit to Stand indep, decreased weightpbearing through right LE, uses hands Functional Movements Squats painful OP Gait Assessment Gait Gait Assistance Required: Independent Assistive Devices Assistive Device None Gait Deviations General Gait Pattern Decreased Stride Length, Decreased Feet Clearance Stair Climbing Evaluation Evaluation Level of Assist On Stairs Standby Assistance Devices Stair Climbing Assistive Devices Left Railing,Right Railing Technique/Endurance Stair Climbing Technique Step to Step PT-OP-H Neuro Start: 01/10/22 12:06 Freq: Status: Active Protocol: Document 01/11/22 09:06 [facility]OS[facility] (Rec: 01/11/22 20:14 [facility] [id number]) Sensation Evaluation Gross Sensation Gross Sensation WNL Comments Summary Comments denies N/T, giving way PT-OP-J Posture/Palpation/Skin Start: 01/10/22 12:06 Freq: Status: Active Protocol: Document 01/11/22 09:06 [facility] (Rec: 01/11/22 20:14 [facility] [id number]) Posture Evaluation Position Standing Knee Posture (R) Genu Varus,(R) Ext. Tibial Torsion Ankle/Foot Posture (R) Pronated,(R) Calcaneal Eversion,(R) Forefoot Eversion Palpation Assessment Location right knee Palpation Location medial joint line Palpation Findings Tenderness Skin Assessment Edema Assessment right knee Edema Type Non-Pitting Edema Degree 2+ PT-OP-K Range of Motion Start: 01/10/22 12:06 Freq: Status: Active Protocol: Document 01/11/22 09:06 [facility] (Rec: 01/11/22 20:14 [facility] [id number]) Hip Goniometric Range of Motion Hip felisa Comments SLR right 65, left 55 otherwise bilateral hips WNL Hip ROM Limitations Hip ROM Limitations Soft Tissue Tightness Knee Goniometric Range of Motion Knee Right Flexion Active (degrees) 123 Extension Active (degrees) 0 Left Flexion Active (degrees) 119 Extension Active (degrees) 0 Knee ROM Limitations Knee ROM Limitations Soft Tissue Tightness Comments mod tightness left quads, mild tightness right quads Ankle and Foot Goniometric Range of Motion Ankle and Foot felisa Ankle/Foot ROM WFL Yes PT-OP-L Special Tests Start: 01/10/22 12:06 Freq: Status: Active Protocol: Document 01/11/22 09:06 [facility] (Rec: 01/11/22 20:14 [facility] [id number]) Special Tests Knee Special Tests Luke Test Test Results negative Patellar Grind Test Test Results negative Anterior Draw Test Results negative PT-OP-M Strength Start: 01/10/22 12:06 Freq: Status: Active Protocol: Document 01/11/22 09:06 [facility] (Rec: 01/11/22 20:14 [facility] [id number]) Knee Strength Knee Manual Muscle Testing Right Flexion (S2) 4 Good Extension (L3) 4 Good Left Flexion (S2) 5 Normal Extension (L3) 4+ Good+ Ankle/Foot Strength Ankle and Foot Manual Muscle Testing Right Dorsiflexion (L4) 4 Good Plantarflexion (S1) 4 Good Inversion 4 Good Eversion (S1) 4 Good Left Dorsiflexion (L4) 4+ Good+ Plantarflexion (S1) 4+ Good+ Inversion 4+ Good+ Eversion (S1) 4+ Good+ PT-OP-Q Treatments Start: 01/10/22 12:06 Freq: Status: Active Protocol: Document 01/17/22 13:01 [facility] (Rec: 01/17/22 13:48 [facility] [id number]) Cardio Equipment Recumbent Stepper (Sci-Fit) Duration (Minutes) 5 Resistance 1 Seat Position 9 Other .5 miles, cues for LE alignment Gym Equipment Shuttle Recovery Unilateral Squats Resistance 37 left, 25 right Reps/Time 10x Bilateral Squats Resistance 50 Shuttle Recovery Platform Stable Reps/Time 10x2 Therapeutic Exercises Supine Exercises bridge Reps/Minutes 10x Comments verbal cues for muscle activation sequencing. SAQ Reps/Minutes 10x Comments verbal cues for alignment SLR Reps/Minutes 10x Comments verbal cues for core activation, LE alignment Quad set Reps/Minutes 10x Comments cues for LE alignment Sidelying Exercises hip abduction Reps/Minutes 10x Comments unable to lay fully on right side due to hip pain , modified Sitting Exercises hamstring curl Equipment Used L1 TB Reps/Minutes 10x Self-Care/Home Management Treatment Education Patient Education Home Exercise Program Other Education updated written HEP with addition of bridge and hamstring curl PT-OP-R Modalities Start: 01/10/22 12:06 Freq: Status: Active Protocol: Document 01/17/22 13:01 [facility] (Rec: 01/17/22 13:48 [facility] [id number]) Hot Pack/Cold Pack Treatment Cold Pack Location right knee (under and on top) Patient Position Hooklying Treatment Duration (minutes) 10 Patient Tolerance Good PT-OP-T Assessment and Plan Start: 01/10/22 12:06 Freq: Status: Active Protocol: Document 01/17/22 13:01 [facility] (Rec: 01/17/22 13:48 [facility] [id number]) Physical Therapy Assessment Goals Three Impairment gait impairment, step-to pattern on stairs Public Relations Writer Goal (LTG) patient able to ascend and descend stairs with alternating pattern and ambulate on level surface with minimal compensation to improve her function at home and in the community. LTG Duration 03/12/22 Two Impairment weakness right LE Short Term Goal (STG) Patient to be independent and compliant with HEP with purpose of strengthening right LE STG Duration 02/10/22 Half-Way Goal (LTG) Patient to demonstrate improved right LE strength to at least 4+/5 all muscle groups to improve her ability to do her usual activities LTG Duration 03/12/22 One Impairment pain right knee as high as 6/ 10 limiting activity tolerance and sleep Public Relations Writer Goal (LTG) Decrease right knee pain to no greater than 2/10 with all usual activities and patient able to sleep without being wakened due to knee pain. LTG Duration 03/12/22 Assessment Summary Assessment Patient compliant to HEP, good progress with patient reporting decrease in pain despite being on feet a lot. WEaring more appropriate footwear and demonstrating good understanding of importance. Physical Therapy Plan Frequency and Duration Frequency of Treatment 2x/Week Duration of Treatment 8 weeks Plan of Care Start Date 01/11/22 Plan of Care End Date 03/12/22 Therapeutic Interventions Therapeutic Interventions Aquatic Therapy,Gait Training, Home Exercise Program,Joint Mobilizations,Manual Therapy, Neuromuscular Re-education, Patient/Caregiver Education, Self-Care/Home Management,Soft Tissue Mobilization,Taping, Therapeutic Activities, Therapeutic Exercises Modalities Cold Pack/Ice Massage,Electric Stimulation,Hot Packs, Ultrasound Next Visit Focus/Plan Next Note Type Treatment Note Next Visit Plan Patient to try floor cycler at home, progress ther ex as tolerated.
--- NOTE | 2022-01-20 13:02 | PT.OTN ---
Current Diagnoses Acute embolism and thrombosis of unspecified deep veins of unspecified lower extremity (01/20/22) Pain in right knee (01/20/22) Difficulty in walking, not elsewhere classified (01/20/22) Weakness (01/20/22) Physical Therapy Treatment Note PT-OP-A Visit Information Start: 01/10/22 12:06 Freq: Status: Active Protocol: Document 01/20/22 12:19 SP (Rec: 01/20/22 13:06 SP [id number]) Out-Patient Physical Therapy Visit Information Visit Information Visit Type Treatment Note Visit Start Time 12:19 Visit Stop Time 13:02 Total Visit Minutes 43 Visit Number 3 Number of SENIOR MECHANICAL ESTIMATOR Visits 1 Evaluation Information Evaluation Date 01/11/22 Precautions Precautions history of blood clots; on long-term anticoagulation, DM Type II, history NM PT-OP-B Current Condition Start: 01/10/22 12:06 Freq: Status: Active Protocol: Document 01/17/22 13:01 SAK (Rec: 01/17/22 13:48 SAK [id number]) Current Condition History of Current Condition Onset Date 6 months Current Complaints right knee pain History of Current Condition Right knee pain no known reason except 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 Typically ok when doing work, as soon as gets in car feels pain, goes home and ices. Interrupts her sleep. Hasn't used cane or other device. Step-to pattern on stairs due to pain. Over past week has had some improvements but persists. Denies swelling from knee pain but did previously due to clot in knee x 2 . Now taking blood thinners. Denies clicking, popping, giving way. No current exercise program, reports I watch a lot of TV. Prior Treatments and Tests x-ray: negative for osseus abnormality. Future Testing and Treatments Planned return to doctor if PT not helpful. 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 She uses a ball to roll over distal quad and medial sub patella pain thant extends Medial R mid reed. PT-OP-G Mobility & Gait Start: 01/10/22 12:06 Freq: Status: Active Protocol: Document 01/11/22 09:06 SAK (Rec: 01/11/22 20:14 [facility] [id number]) OP Mobility Evaluation Transfers Sit to Stand indep, decreased weightpbearing through right LE, uses hands Functional Movements Squats painful OP Gait Assessment Gait Gait Assistance Required: Independent Assistive Devices Assistive Device None Gait Deviations General Gait Pattern Decreased Stride Length, Decreased Feet Clearance Stair Climbing Evaluation Evaluation Level of Assist On Stairs Standby Assistance Devices Stair Climbing Assistive Devices Left Railing,Right Railing Technique/Endurance Stair Climbing Technique Step to Step PT-OP-H Neuro Start: 01/10/22 12:06 Freq: Status: Active Protocol: Document 01/11/22 09:06 [facility] (Rec: 01/11/22 20:14 [facility] [id number]) Sensation Evaluation Gross Sensation Gross Sensation WNL Comments Summary Comments denies N/T, giving way PT-OP-J Posture/Palpation/Skin Start: 01/10/22 12:06 Freq: Status: Active Protocol: Document 01/11/22 09:06 SAK (Rec: 01/11/22 20:14 [facility] [id number]) Posture Evaluation Position Standing Knee Posture (R) Genu Varus,(R) Ext. Tibial Torsion Ankle/Foot Posture (R) Pronated,(R) Calcaneal Eversion,(R) Forefoot Eversion Palpation Assessment Location right knee Palpation Location medial joint line Palpation Findings Tenderness Skin Assessment Edema Assessment right knee Edema Type Non-Pitting Edema Degree 2+ PT-OP-K Range of Motion Start: 01/10/22 12:06 Freq: Status: Active Protocol: Document 01/11/22 09:06 SAK (Rec: 01/11/22 20:14 [facility] [id number]) Hip Goniometric Range of Motion Hip felisa Comments SLR right 65, left 55 otherwise bilateral hips WNL Hip ROM Limitations Hip ROM Limitations Soft Tissue Tightness Knee Goniometric Range of Motion Knee Right Flexion Active (degrees) 123 Extension Active (degrees) 0 Left Flexion Active (degrees) 119 Extension Active (degrees) 0 Knee ROM Limitations Knee ROM Limitations Soft Tissue Tightness Comments mod tightness left quads, mild tightness right quads Ankle and Foot Goniometric Range of Motion Ankle and Foot felisa Ankle/Foot ROM WFL Yes PT-OP-L Special Tests Start: 01/10/22 12:06 Freq: Status: Active Protocol: Document 01/11/22 09:06 SAK (Rec: 01/11/22 20:14 [facility] [id number]) Special Tests Knee Special Tests Luke Test Test Results negative Patellar Grind Test Test Results negative Anterior Draw Test Results negative PT-OP-M Strength Start: 01/10/22 12:06 Freq: Status: Active Protocol: Document 01/11/22 09:06 SAK (Rec: 01/11/22 20:14 [facility] [id number]) Knee Strength Knee Manual Muscle Testing Right Flexion (S2) 4 Good Extension (L3) 4 Good Left Flexion (S2) 5 Normal Extension (L3) 4+ Good+ Ankle/Foot Strength Ankle and Foot Manual Muscle Testing Right Dorsiflexion (L4) 4 Good Plantarflexion (S1) 4 Good Inversion 4 Good Eversion (S1) 4 Good Left Dorsiflexion (L4) 4+ Good+ Plantarflexion (S1) 4+ Good+ Inversion 4+ Good+ Eversion (S1) 4+ Good+ PT-OP-Q Treatments Start: 01/10/22 12:06 Freq: Status: Active Protocol: Document 01/20/22 12:19 SP (Rec: 01/20/22 13:06 SP [id number]) Cardio Equipment Recumbent Stepper (Sci-Fit) Duration (Minutes) 5 Resistance 1 Seat Position 10- machine timer form mileagestarted later Other UE/ LEs ? miles, 38>55 RPM, good LE alignment painfree Therapeutic Exercises Supine Exercises bridge Supine Exercise Name HEP review Reps/Minutes 10x Comments cued knees bent closer to bottom, glut / core fac- no knee strain- painfree SAQ Supine Exercise Name reviewed HEP Side right Equipment Used rectangular bolster (suggested new paper towel roll w/ towel rolled around) Reps/Minutes 10x Comments verbal cues for alignment- painfree- quad fac SLR Supine Exercise Name HEP reviewed Reps/Minutes 5 reps before lag, rest good form set set- little shaky hip flex. Comments verbal cues for core and quad fac, LE alignment and no lag Quad set Supine Exercise Name HEP reviewed Reps/Minutes 10x Comments cues for LE alignment Sidelying Exercises hip abduction Sidelying Exercise Name PT only on L, R SLR Side right Reps/Minutes x5- tiring Comments Mod cues lay on L side, not roll back, knee extension lift Sitting Exercises hamstring curl Equipment Used L1 TB Reps/Minutes 10x Comments extra time set up for home wiht door Standing Exercises calf stretch Standing Exercise Name added to HEP Side right Equipment Used DEENA vs off end step Reps/Minutes 30s hold x2 Comments good feedback stretch- recommended 1 LE at time hld Other Exercises seated STMs Other Exercise Name Discussed uses ball to roll over distal adductors/ quad Side right Comments helpful to decrease pain, has cold element as well Self-Care/Home Management Treatment Education Patient Education Body Mechanics,Home Exercise Program,Joint Protection,Pain Management,Posture Other Education HEP review instructed how can anchor HS curl to perform at home, added calf stretch and instruction body mechanics vacuuming at work knee alignment. Improved understanding. PT-OP-R Modalities Start: 01/10/22 12:06 Freq: Status: Active Protocol: Document 01/17/22 13:01 SAK (Rec: 01/17/22 13:48 SAK [id number]) Hot Pack/Cold Pack Treatment Cold Pack Location right knee (under and on top) Patient Position Hooklying Treatment Duration (minutes) 10 Patient Tolerance Good PT-OP-T Assessment and Plan Start: 01/10/22 12:06 Freq: Status: Active Protocol: Document 01/20/22 12:19 SP (Rec: 01/20/22 13:06 SP [id number]) Physical Therapy Assessment Goals Three Impairment gait impairment, step-to pattern on stairs [employer] Maintenance Worker Goal (LTG) patient able to ascend and descend stairs with alternating pattern and ambulate on level surface with minimal compensation to improve her function at home and in the community. LTG Duration 03/12/22 Two Impairment weakness right LE Short Term Goal (STG) Patient to be independent and compliant with HEP with purpose of strengthening right LE STG Duration 02/10/22 Fdc Goal (LTG) Patient to demonstrate improved right LE strength to at least 4+/5 all muscle groups to improve her ability to do her usual activities LTG Duration 03/12/22 One Impairment pain right knee as high as 6/ 10 limiting activity tolerance and sleep [employer] Maintenance Worker Goal (LTG) Decrease right knee pain to no greater than 2/10 with all usual activities and patient able to sleep without being wakened due to knee pain. LTG Duration 03/12/22 Assessment Summary Assessment Tx focused on HEP review for confidence and proper form with better understanding. Time spent discussion body and knee mechanics for alignment and reduction medial R knee pain while vacuuming at work with improved demonstration wt shift lunge F/B knees behind/ with toes with hip abd fac and using each UE with good back alignment core support, stated felt better. Initiated calf stretch with improvement support decrease tension on posterior knee. Physical Therapy Plan Frequency and Duration Frequency of Treatment 2x/Week Duration of Treatment 8 weeks Plan of Care Start Date 01/11/22 Plan of Care End Date 03/12/22 Therapeutic Interventions Therapeutic Interventions Aquatic Therapy,Gait Training, Home Exercise Program,Joint Mobilizations,Manual Therapy, Neuromuscular Re-education, Patient/Caregiver Education, Self-Care/Home Management,Soft Tissue Mobilization,Taping, Therapeutic Activities, Therapeutic Exercises Modalities Cold Pack/Ice Massage,Electric Stimulation,Hot Packs, Ultrasound Next Visit Focus/Plan Next Note Type Treatment Note Next Visit Plan Assess response to HEP review and added calf stretch. Next tx: warm up bike. Patient to try floor cycler at home, progress ther ex as tolerated start eccentric quad unweighted to decrease pain after standing activity reports today, worse when sits .
--- NOTE | 2022-01-24 11:33 | PT.OTN ---
Addendum entered and electronically signed by Conchita Capellan, BUILDING CERTIFIER 01/24/22 11:35: Time spent gait inmirror for trunk alignment and cues core/hip abd fac. improved gait stance/stability walk like book on head. Original Note: Current Diagnoses Acute embolism and thrombosis of unspecified deep veins of unspecified lower extremity (01/24/22) Pain in right knee (01/24/22) Difficulty in walking, not elsewhere classified (01/24/22) Weakness (01/24/22) Physical Therapy Treatment Note PT-OP-A Visit Information Start: 01/10/22 12:06 Freq: Status: Active Protocol: Document 01/24/22 10:34 SP (Rec: 01/24/22 11:33 SP [id number]) Out-Patient Physical Therapy Visit Information Visit Information Visit Type Treatment Note Visit Start Time 10:34 Visit Stop Time 11:22 Total Visit Minutes 48 Visit Number 4 Number of BUILDING CERTIFIER Visits 2 Evaluation Information Evaluation Date 01/11/22 Precautions Precautions history of blood clots; on long-term anticoagulation, DM Type II, history CA PT-OP-B Current Condition Start: 01/10/22 12:06 Freq: Status: Active Protocol: Document 01/17/22 13:01 SAK (Rec: 01/17/22 13:48 SAK [id number]) Current Condition History of Current Condition Onset Date 6 months Current Complaints right knee pain History of Current Condition Right knee pain no known reason except 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 Typically ok when doing work, as soon as gets in car feels pain, goes home and ices. Interrupts her sleep. Hasn't used cane or other device. Step-to pattern on stairs due to pain. Over past week has had some improvements but persists. Denies swelling from knee pain but did previously due to clot in knee x 2 . Now taking blood thinners. Denies clicking, popping, giving way. No current exercise program, reports I watch a lot of TV. Prior Treatments and Tests x-ray: negative for osseus abnormality. Future Testing and Treatments Planned return to doctor if PT not helpful. 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 Pt reports the pain when sits down isn't as bad and not having to ice as much. Pt reports feels the calf and other muscles are working more in a good way. Pt states not having to take Tylenol anymore. Pt states her daughter reminders her to push from chair to get out of chair, takes her 3 tries to get up sometimes. PT-OP-G Mobility & Gait Start: 01/10/22 12:06 Freq: Status: Active Protocol: Document 01/11/22 09:06 [facility] (Rec: 01/11/22 20:14 [facility] [id number]) OP Mobility Evaluation Transfers Sit to Stand indep, decreased weightpbearing through right LE, uses hands Functional Movements Squats painful OP Gait Assessment Gait Gait Assistance Required: Independent Assistive Devices Assistive Device None Gait Deviations General Gait Pattern Decreased Stride Length, Decreased Feet Clearance Stair Climbing Evaluation Evaluation Level of Assist On Stairs Standby Assistance Devices Stair Climbing Assistive Devices Left Railing,Right Railing Technique/Endurance Stair Climbing Technique Step to Step PT-OP-H Neuro Start: 01/10/22 12:06 Freq: Status: Active Protocol: Document 01/11/22 09:06 SAK (Rec: 01/11/22 20:14 [facility] [id number]) Sensation Evaluation Gross Sensation Gross Sensation WNL Comments Summary Comments denies N/T, giving way PT-OP-J Posture/Palpation/Skin Start: 01/10/22 12:06 Freq: Status: Active Protocol: Document 01/11/22 09:06 SAK (Rec: 01/11/22 20:14 [facility] [id number]) Posture Evaluation Position Standing Knee Posture (R) Genu Varus,(R) Ext. Tibial Torsion Ankle/Foot Posture (R) Pronated,(R) Calcaneal Eversion,(R) Forefoot Eversion Palpation Assessment Location right knee Palpation Location medial joint line Palpation Findings Tenderness Skin Assessment Edema Assessment right knee Edema Type Non-Pitting Edema Degree 2+ PT-OP-K Range of Motion Start: 01/10/22 12:06 Freq: Status: Active Protocol: Document 01/11/22 09:06 SAK (Rec: 01/11/22 20:14 SAK [id number]) Hip Goniometric Range of Motion Hip felisa Comments SLR right 65, left 55 otherwise bilateral hips WNL Hip ROM Limitations Hip ROM Limitations Soft Tissue Tightness Knee Goniometric Range of Motion Knee Right Flexion Active (degrees) 123 Extension Active (degrees) 0 Left Flexion Active (degrees) 119 Extension Active (degrees) 0 Knee ROM Limitations Knee ROM Limitations Soft Tissue Tightness Comments mod tightness left quads, mild tightness right quads Ankle and Foot Goniometric Range of Motion Ankle and Foot felisa Ankle/Foot ROM WFL Yes PT-OP-L Special Tests Start: 01/10/22 12:06 Freq: Status: Active Protocol: Document 01/11/22 09:06 SAK (Rec: 01/11/22 20:14 [facility] [id number]) Special Tests Knee Special Tests Luek Test Test Results negative Patellar Grind Test Test Results negative Anterior Draw Test Results negative PT-OP-M Strength Start: 01/10/22 12:06 Freq: Status: Active Protocol: Document 01/11/22 09:06 SAK (Rec: 01/11/22 20:14 [facility] [id number]) Knee Strength Knee Manual Muscle Testing Right Flexion (S2) 4 Good Extension (L3) 4 Good Left Flexion (S2) 5 Normal Extension (L3) 4+ Good+ Ankle/Foot Strength Ankle and Foot Manual Muscle Testing Right Dorsiflexion (L4) 4 Good Plantarflexion (S1) 4 Good Inversion 4 Good Eversion (S1) 4 Good Left Dorsiflexion (L4) 4+ Good+ Plantarflexion (S1) 4+ Good+ Inversion 4+ Good+ Eversion (S1) 4+ Good+ PT-OP-Q Treatments Start: 01/10/22 12:06 Freq: Status: Active Protocol: Document 01/24/22 10:34 SP (Rec: 01/24/22 11:33 SP [id number]) Cardio Equipment Recumbent Stepper (Sci-Fit) Duration (Minutes) 5 Resistance 2> 2.5 Seat Position 10 Other UEs & LEs, good LE alignment painfree, RPM 53-56, 0. 70miles Therapeutic Exercises Supine Exercises bridge Supine Exercise Name HEP review Reps/Minutes 10x Comments good form:glut / core fac- no knee strain- painfree SLR Supine Exercise Name HEP reviewed Reps/Minutes 5 reps before lag, rest good form set set- little shaky hip flex. Comments verbal cues for core and quad fac, LE alignment and no lag Sitting Exercises STS Sitting Exercise Name added to HEP Resistance aROM Equipment Used no UE support ( cued arms across chest) Reps/Minutes x5 Comments cued hip hinge- good painfree, cued knees apart awareness hamstring curl Sitting Exercise Name reviewed HEP Equipment Used L1 TB> #2 TB Reps/Minutes 5 reps each, x15 X2 Comments good form, painfree Standing Exercises step up/ down Standing Exercise Name added to HEP Side bilateral Equipment Used contact rail Reps/Minutes x5 Comments cued lead each LE- painfree demonstrated calf stretch Standing Exercise Name reviewed [facility] Side right Equipment Used off end step Reps/Minutes 30s hold x2 Comments good feedback stretch- recommended 1 LE at time hld Other Exercises seated STMs Other Exercise Name good performance self ball roll adductors, quad. Side right Reps/Minutes not have use it as much at home, getting better not needed Comments helpful to decrease pain, hers has cold element PT-OP-R Modalities Start: 01/10/22 12:06 Freq: Status: Active Protocol: Document 01/17/22 13:01 SAK (Rec: 01/17/22 13:48 SAK [id number]) Hot Pack/Cold Pack Treatment Cold Pack Location right knee (under and on top) Patient Position Hooklying Treatment Duration (minutes) 10 Patient Tolerance Good PT-OP-T Assessment and Plan Start: 01/10/22 12:06 Freq: Status: Active Protocol: Document 01/24/22 10:34 SP (Rec: 01/24/22 11:33 SP [id number]) Physical Therapy Assessment Goals Three Impairment gait impairment, step-to pattern on stairs [employer] Resort Manager Goal (LTG) patient able to ascend and descend stairs with alternating pattern and ambulate on level surface with minimal compensation to improve her function at home and in the community. 01/24/22: Goal met: has minimal lateral R lean antaglic during RLE WB painfree, noted bowed LE. able to ascend/ descend 4 stairs x2 sets receiprocal stepping, decreased stance time on R than L but painfree using R HR. . LTG Duration 03/12/22 (01/24/22: GOAL MET) Two Impairment weakness right LE Short Term Goal (STG) Patient to be independent and compliant with HEP with purpose of strengthening right LE 01/24/22: pt compliant with HEP : SLR, heel slide, SAQ, side hip abd, seated HS curl increased to #2 TB, STG Duration 02/10/22 [employer] Resort Manager Goal (LTG) Patient to demonstrate improved right LE strength to at least 4+/5 all muscle groups to improve her ability to do her usual activities LTG Duration 03/12/22 One Impairment pain right knee as high as 6/ 10 limiting activity tolerance and sleep [employer] Resort Manager Goal (LTG) Decrease right knee pain to no greater than 2/10 with all usual activities and patient able to sleep without being wakened due to knee pain. 01/24/22: Progressing: not having paing waking her up at night, sleeping well. only rolling R medial knee assist 5 /10 pain every 2 days. LTG Duration 03/12/22 (progressing 01/24/22) Assessment Summary Assessment Pt able to increase distance on biodQeexo today with increase RPM 56. AROM R knee 126 deg AROM. Pt good response to all ther ex including new STS and step up/ downs, painfree. Able to ascend/descend receiprocal stepping 1 HR contact but less stance time RLE. Pt able to complete STS from approx 18 table wtihout out UEs today, painfree. Time spent gait in mirror, improved decrease antalgic R lateral lean wt shift and carry over leaving. Physical Therapy Plan Frequency and Duration Frequency of Treatment 2x/Week Duration of Treatment 8 weeks Plan of Care Start Date 01/11/22 Plan of Care End Date 03/12/22 Therapeutic Interventions Therapeutic Interventions Aquatic Therapy,Gait Training, Home Exercise Program,Joint Mobilizations,Manual Therapy, Neuromuscular Re-education, Patient/Caregiver Education, Self-Care/Home Management,Soft Tissue Mobilization,Taping, Therapeutic Activities, Therapeutic Exercises Modalities Cold Pack/Ice Massage,Electric Stimulation,Hot Packs, Ultrasound Next Visit Focus/Plan Next Note Type Treatment Note Next Visit Plan Next tx: warm up bike, check steps, STS, if ok add band walk. Patient to try floor cycler at home, progress ther ex as tolerated start eccentric quad unweighted to decrease pain after standing activity reports today, worse when sits .
--- NOTE | 2022-01-26 11:58 | PT.OTN ---
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 Typically ok when doing work, as soon as gets in car feels pain, goes home and ices. Interrupts her sleep. Hasn't used cane or other device. Step-to pattern on stairs due to pain. Over past week has had some improvements but persists. Denies swelling from knee pain but did previously due to clot in knee x 2 . Now taking blood thinners. Denies clicking, popping, giving way. No current exercise program, reports I watch a lot of TV. Prior Treatments and Tests x-ray: negative for osseus abnormality. Future Testing and Treatments Planned return to doctor if PT not helpful. 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 Exercises going ok. Overall has had less pain. Hasn't used floor cycler at home yet. PT-OP-G Mobility & Gait Start: 01/10/22 12:06 Freq: Status: Active Protocol: Document 01/11/22 09:06 [facility] (Rec: 01/11/22 20:14 [facility] [id number]) OP Mobility Evaluation Transfers Sit to Stand indep, decreased weightpbearing through right LE, uses hands Functional Movements Squats painful OP Gait Assessment Gait Gait Assistance Required: Independent Assistive Devices Assistive Device None Gait Deviations General Gait Pattern Decreased Stride Length, Decreased Feet Clearance Stair Climbing Evaluation Evaluation Level of Assist On Stairs Standby Assistance Devices Stair Climbing Assistive Devices Left Railing,Right Railing Technique/Endurance Stair Climbing Technique Step to Step PT-OP-H Neuro Start: 01/10/22 12:06 Freq: Status: Active Protocol: Document 01/11/22 09:06 [facility] (Rec: 01/11/22 20:14 [facility] [id number]) Sensation Evaluation Gross Sensation Gross Sensation WNL Comments Summary Comments denies N/T, giving way PT-OP-J Posture/Palpation/Skin Start: 01/10/22 12:06 Freq: Status: Active Protocol: Document 01/11/22 09:06 [facility] (Rec: 01/11/22 20:14 [facility] [id number]) Posture Evaluation Position Standing Knee Posture (R) Genu Varus,(R) Ext. Tibial Torsion Ankle/Foot Posture (R) Pronated,(R) Calcaneal Eversion,(R) Forefoot Eversion Palpation Assessment Location right knee Palpation Location medial joint line Palpation Findings Tenderness Skin Assessment Edema Assessment right knee Edema Type Non-Pitting Edema Degree 2+ PT-OP-K Range of Motion Start: 01/10/22 12:06 Freq: Status: Active Protocol: Document 01/11/22 09:06 [facility] (Rec: 01/11/22 20:14 [facility] [id number]) Hip Goniometric Range of Motion Hip felisa Comments SLR right 65, left 55 otherwise bilateral hips WNL Hip ROM Limitations Hip ROM Limitations Soft Tissue Tightness Knee Goniometric Range of Motion Knee Right Flexion Active (degrees) 123 Extension Active (degrees) 0 Left Flexion Active (degrees) 119 Extension Active (degrees) 0 Knee ROM Limitations Knee ROM Limitations Soft Tissue Tightness Comments mod tightness left quads, mild tightness right quads Ankle and Foot Goniometric Range of Motion Ankle and Foot felisa Ankle/Foot ROM WFL Yes PT-OP-L Special Tests Start: 01/10/22 12:06 Freq: Status: Active Protocol: Document 01/11/22 09:06 [facility] (Rec: 01/11/22 20:14 [facility] [id number]) Special Tests Knee Special Tests Luke Test Test Results negative Patellar Grind Test Test Results negative Anterior Draw Test Results negative PT-OP-M Strength Start: 01/10/22 12:06 Freq: Status: Active Protocol: Document 01/11/22 09:06 [facility] (Rec: 01/11/22 20:14 [facility] [id number]) Knee Strength Knee Manual Muscle Testing Right Flexion (S2) 4 Good Extension (L3) 4 Good Left Flexion (S2) 5 Normal Extension (L3) 4+ Good+ Ankle/Foot Strength Ankle and Foot Manual Muscle Testing Right Dorsiflexion (L4) 4 Good Plantarflexion (S1) 4 Good Inversion 4 Good Eversion (S1) 4 Good Left Dorsiflexion (L4) 4+ Good+ Plantarflexion (S1) 4+ Good+ Inversion 4+ Good+ Eversion (S1) 4+ Good+ PT-OP-Q Treatments Start: 01/10/22 12:06 Freq: Status: Active Protocol: Document 01/26/22 10:35 [facility] (Rec: 01/26/22 11:21 [facility] [id number]) Cardio Equipment Recumbent Stepper (Sci-Fit) Duration (Minutes) 7 Resistance 2> 2.5 Seat Position 10 Other UEs & LEs, good LE alignment painfree, RPM 53-56, 0. 70miles Other Cardio Equipment Other Cardio Equipment floor cycler: 5 min with patient ed for use at home. Therapeutic Exercises Sitting Exercises hamstring curl Sitting Exercise Name reviewed HEP Equipment Used #2 TB Reps/Minutes 15x Comments good form, painfree Standing Exercises squat Standing Exercise Name chair squat, added to HEP Reps/Minutes 12x Comments min, emphasis on pain-free range . elevated table with shallow squat tolera step up/ down Standing Exercise Name added to HEP Side bilateral Equipment Used contact rail Reps/Minutes x5 Comments cued lead each LE- painfree demonstrated calf stretch Standing Exercise Name alternative Side right Equipment Used lunge Reps/Minutes 30s hold x2 Comments good feedback stretch- recommended 1 LE at time hld Other Exercises seated STMs Other Exercise Name HEP Self-Care/Home Management Treatment Education Patient Education Body Mechanics,Home Exercise Program,Joint Protection,Pain Management,Posture Other Education correct wear and fit of compression stockings, feel patient regular stockings today causing her pain due to sliding down causing tourniquet effect possibly causing pain. PT-OP-R Modalities Start: 01/10/22 12:06 Freq: Status: Active Protocol: Document 01/17/22 13:01 [facility] (Rec: 01/17/22 13:48 [facility] [id number]) Hot Pack/Cold Pack Treatment Cold Pack Location right knee (under and on top) Patient Position Hooklying Treatment Duration (minutes) 10 Patient Tolerance Good PT-OP-T Assessment and Plan Start: 01/10/22 12:06 Freq: Status: Active Protocol: Document 01/26/22 10:35 [facility] (Rec: 01/26/22 11:21 [facility] [id number]) Physical Therapy Assessment Goals Three Impairment gait impairment, step-to pattern on stairs Care Home Goal (LTG) patient able to ascend and descend stairs with alternating pattern and ambulate on level surface with minimal compensation to improve her function at home and in the community. 01/24/22: Goal met: has minimal lateral R lean antaglic during RLE WB painfree, noted bowed LE. able to ascend/ descend 4 stairs x2 sets receiprocal stepping, decreased stance time on R than L but painfree using R HR . LTG Duration 03/12/22 (01/24/22: GOAL MET) Two Impairment weakness right LE Short Term Goal (STG) Patient to be independent and compliant with HEP with purpose of strengthening right LE 01/24/22: pt compliant with HEP : SLR, heel slide, SAQ, side hip abd, seated HS curl increased to #2 TB, STG Duration 02/10/22 Care Home Goal (LTG) Patient to demonstrate improved right LE strength to at least 4+/5 all muscle groups to improve her ability to do her usual activities LTG Duration 03/12/22 One Impairment pain right knee as high as 6/ 10 limiting activity tolerance and sleep Care Home Goal (LTG) Decrease right knee pain to no greater than 2/10 with all usual activities and patient able to sleep without being wakened due to knee pain. 01/24/22: Progressing: not having paing waking her up at night, sleeping well. only rolling R medial knee assist 5 /10 pain every 2 days. LTG Duration 03/12/22 (progressing 01/24/22) Assessment Summary Assessment Trial ultrasound as patient previously found helpful. Good response. Improving understanding of sit to stand and squat mechanics. Demonstrated good understanding of use of floor cycler; has at home but hasn't used yet. Also demonstrated good understanding of importance of wearing compression and correct fit. Patient able to tolerate increase of time on Sci-Fit with inc RPM to 61, fatigued after 7 min. Physical Therapy Plan Frequency and Duration Frequency of Treatment 2x/Week Duration of Treatment 8 weeks Plan of Care Start Date 01/11/22 Plan of Care End Date 03/12/22 Therapeutic Interventions Therapeutic Interventions Aquatic Therapy,Gait Training, Home Exercise Program,Joint Mobilizations,Manual Therapy, Neuromuscular Re-education, Patient/Caregiver Education, Self-Care/Home Management,Soft Tissue Mobilization,Taping, Therapeutic Activities, Therapeutic Exercises Modalities Cold Pack/Ice Massage,Electric Stimulation,Hot Packs, Ultrasound Next Visit Focus/Plan Next Note Type Treatment Note Next Visit Plan Next tx: warm up bike. Patient to try floor cycler at home, progress ther ex as tolerated start eccentric quad unweighted to decrease pain after standing activity reports today, worse when sits .
--- NOTE | 2022-01-30 11:22 | PT.OTN ---
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 1 Evaluation Information Evaluation Date 01/11/22 Precautions Precautions history of blood clots; on long-term anticoagulation, DM Type II, history [place] PT-OP-B Current Condition Start: 01/10/22 12:06 Freq: Status: Active Protocol: Document 01/17/22 13:01 SAK (Rec: 01/17/22 13:48 SAK [id number]) Current Condition History of Current Condition Onset Date 6 months Current Complaints right knee pain History of Current Condition Right knee pain no known reason except patient thinks possibly due to [place] [facility] 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 Typically ok when doing work, as soon as gets in car feels pain, goes home and ices. Interrupts her sleep. Hasn't used cane or other device. Step-to pattern on stairs due to pain. Over past week has had some improvements but persists. Denies swelling from knee pain but did previously due to clot in knee x 2 . Now taking blood thinners. Denies clicking, popping, giving way. No current exercise program, reports I watch a lot of TV. Prior Treatments and Tests x-ray: negative for osseus abnormality. Future Testing and Treatments Planned return to doctor if PT not helpful. Treatment Goals Patient/Caregiver Goals minimize knee pain, be able to sleep without pain, be able to complete [place] [facility] work without an increase in pain PT-OP-C Subjective Start: 01/10/22 12:06 Freq: Status: Active Protocol: Document 01/30/22 10:32 SP (Rec: 01/30/22 11:35 SP [id number]) OP-PT Subjective Patient Comments Patient Comments Pt reported rough weekend, foot and ankle swelling, states ankle swelling comes and goes but not sure why. Sunday had so much swelling that purplish in color but when woke up in am was alot better. She said if continues she will call Dr Peralta. Pt states was pleased able to receiprocal step down stairs but not now, disappointing. Pt reports forgot about using home floor cycler, will try at home before next appt. PT-OP-E Functional Tests Start: 01/10/22 12:06 Freq: Status: Active Protocol: Document 01/30/22 10:32 SP (Rec: 01/30/22 11:35 SP [id number]) Functional Tests Five Times Sit to Stand Test Score 20 Comments arm across chest, white folding chair painfree PT-OP-G Mobility & Gait Start: 01/10/22 12:06 Freq: Status: Active Protocol: Document 01/11/22 09:06 SAK (Rec: 01/11/22 20:14 SAK [id number]) OP Mobility Evaluation Transfers Sit to Stand indep, decreased weightpbearing through right LE, uses hands Functional Movements Squats painful OP Gait Assessment Gait Gait Assistance Required: Independent Assistive Devices Assistive Device None Gait Deviations General Gait Pattern Decreased Stride Length, Decreased Feet Clearance Stair Climbing Evaluation Evaluation Level of Assist On Stairs Standby Assistance Devices Stair Climbing Assistive Devices Left Railing,Right Railing Technique/Endurance Stair Climbing Technique Step to Step PT-OP-H Neuro Start: 01/10/22 12:06 Freq: Status: Active Protocol: Document 01/11/22 09:06 SAK (Rec: 01/11/22 20:14 [facility] [id number]) Sensation Evaluation Gross Sensation Gross Sensation WNL Comments Summary Comments denies N/T, giving way PT-OP-J Posture/Palpation/Skin Start: 01/10/22 12:06 Freq: Status: Active Protocol: Document 01/11/22 09:06 SAK (Rec: 01/11/22 20:14 SAK [id number]) Posture Evaluation Position Standing Knee Posture (R) Genu Varus,(R) Ext. Tibial Torsion Ankle/Foot Posture (R) Pronated,(R) Calcaneal Eversion,(R) Forefoot Eversion Palpation Assessment Location right knee Palpation Location medial joint line Palpation Findings Tenderness Skin Assessment Edema Assessment right knee Edema Type Non-Pitting Edema Degree 2+ PT-OP-K Range of Motion Start: 01/10/22 12:06 Freq: Status: Active Protocol: Document 01/11/22 09:06 [facility] (Rec: 01/11/22 20:14 [facility] [id number]) Hip Goniometric Range of Motion Hip felisa Comments SLR right 65, left 55 otherwise bilateral hips WNL Hip ROM Limitations Hip ROM Limitations Soft Tissue Tightness Knee Goniometric Range of Motion Knee Right Flexion Active (degrees) 123 Extension Active (degrees) 0 Left Flexion Active (degrees) 119 Extension Active (degrees) 0 Knee ROM Limitations Knee ROM Limitations Soft Tissue Tightness Comments mod tightness left quads, mild tightness right quads Ankle and Foot Goniometric Range of Motion Ankle and Foot felisa Ankle/Foot ROM WFL Yes PT-OP-L Special Tests Start: 01/10/22 12:06 Freq: Status: Active Protocol: Document 01/11/22 09:06 [facility] (Rec: 01/11/22 20:14 [facility] [id number]) Special Tests Knee Special Tests Luke Test Test Results negative Patellar Grind Test Test Results negative Anterior Draw Test Results negative PT-OP-M Strength Start: 01/10/22 12:06 Freq: Status: Active Protocol: Document 01/11/22 09:06 [facility] (Rec: 01/11/22 20:14 [facility] [id number]) Knee Strength Knee Manual Muscle Testing Right Flexion (S2) 4 Good Extension (L3) 4 Good Left Flexion (S2) 5 Normal Extension (L3) 4+ Good+ Ankle/Foot Strength Ankle and Foot Manual Muscle Testing Right Dorsiflexion (L4) 4 Good Plantarflexion (S1) 4 Good Inversion 4 Good Eversion (S1) 4 Good Left Dorsiflexion (L4) 4+ Good+ Plantarflexion (S1) 4+ Good+ Inversion 4+ Good+ Eversion (S1) 4+ Good+ PT-OP-Q Treatments Start: 01/10/22 12:06 Freq: Status: Active Protocol: Document 01/30/22 10:32 SP (Rec: 01/30/22 11:35 SP [id number]) Cardio Equipment Recumbent Stepper (Sci-Fit) Duration (Minutes) 6 Resistance 2> 2.5 Seat Position 10 Other UEs & LEs, good LE alignment painfree, RPM , 0. 88miles Gym Equipment Shuttle Recovery Unilateral Squats Details cued knee alignment see in sole , L quad fac pause in extension Resistance 37 left, 25 right Shuttle Recovery Platform Stable Reps/Time 2x 12- stated aware discomfort lateral lower leg 2/10 but ok Bilateral Squats Details cued knee alignment with toes. Resistance 50 Shuttle Recovery Platform Stable Reps/Time 2x15 Therapeutic Exercises Sitting Exercises STS Sitting Exercise Name reviewed HEP Resistance aROM Equipment Used arms across chest, white folding chair Reps/Minutes x5, 5 STS in 20 sec Comments cued hip hinge- good painfree, cued knees apart awareness hamstring curl Sitting Exercise Name reviewed HEP Side bilateral Resistance #2 TB Equipment Used white folding chair Reps/Minutes 2x15 Comments good form, painfree- cued use tong/ cook morning for don ankle. Standing Exercises step up/ down Standing Exercise Name reviewed HEP Side bilateral Equipment Used contact R rail Reps/Minutes x10 concentric and eccentric directions Comments painfree demonstrated calf stretch Standing Exercise Name alternate LEs Side bilateral Equipment Used lunge Reps/Minutes 30s hold x2 Comments good feedback stretch- recommended 1 LE at time hld Neuro Re-Education Treatment Balance Activities corner balance Details added to HEP Surface firm Equipment corner at back, chair front Comments EO NBOS, stagger: head turns EC: NBOS 30s, Stagger 10 s each foot position PT-OP-R Modalities Start: 01/10/22 12:06 Freq: Status: Active Protocol: Document 01/26/22 10:35 SAK (Rec: 01/26/22 12:00 SAK [id number]) Ultrasound Therapy Treatment medial right knee Treatment Duration (minutes) 8 Patient Position Hooklying Coupling Medium Ultrasound Gel Frequency Setting (mHz) 1 Mode Setting Continuous Duty Cycle 100% Intensity Setting (w/cm2) 1.2 Comments medial joint line PT-OP-T Assessment and Plan Start: 01/10/22 12:06 Freq: Status: Active Protocol: Document 01/30/22 10:32 SP (Rec: 01/30/22 11:35 SP [id number]) Physical Therapy Assessment Goals Three Impairment gait impairment, step-to pattern on stairs Clinical Practice Consultant Goal (LTG) patient able to ascend and descend stairs with alternating pattern and ambulate on level surface with minimal compensation to improve her function at home and in the community. 01/24/22: Goal met: has minimal lateral R lean antaglic during RLE WB painfree, noted bowed LE. able to ascend/ descend 4 stairs x2 sets receiprocal stepping, decreased stance time on R than L but painfree using R HR . LTG Duration 03/12/22 (01/24/22: GOAL MET) Two Impairment weakness right LE Short Term Goal (STG) Patient to be independent and compliant with HEP with purpose of strengthening right LE 01/30/22: pt compliant with HEP: SLR, heel slide, SAQ, side hip abd, seated HS curl increased to #2 TB, STS, step up/downs. STG Duration 02/10/22 (01/30/22: progressing) Fpc Goal (LTG) Patient to demonstrate improved right LE strength to at least 4+/5 all muscle groups to improve her ability to do her usual activities LTG Duration 03/12/22 One Impairment pain right knee as high as 6/ 10 limiting activity tolerance and sleep Clinical Practice Consultant Goal (LTG) Decrease right knee pain to no greater than 2/10 with all usual activities and patient able to sleep without being wakened due to knee pain. 01/24/22: Progressing: not having paing waking her up at night, sleeping well. only rolling R medial knee assist 5 /10 pain every 2 days. 01/30/22: Progressing: no pain at night and not needing to use Tylenol, but when initially gets up feel like 89 y/o lady. She reports R knee pain 4-5/10 and balance not sturdy. LTG Duration 03/12/22 (progressing 01/30/22) Assessment Summary Assessment Pt reported painfree duirng all ther ex today. Reviewed standing HEP and added corner balance for increased confidence in balance states isn't good, able complete EC up to 10-30sec. Physical Therapy Plan Frequency and Duration Frequency of Treatment 2x/Week Duration of Treatment 8 weeks Plan of Care Start Date 01/11/22 Plan of Care End Date 03/12/22 Therapeutic Interventions Therapeutic Interventions Aquatic Therapy,Gait Training, Home Exercise Program,Joint Mobilizations,Manual Therapy, Neuromuscular Re-education, Patient/Caregiver Education, Self-Care/Home Management,Soft Tissue Mobilization,Taping, Therapeutic Activities, Therapeutic Exercises Modalities Cold Pack/Ice Massage,Electric Stimulation,Hot Packs, Ultrasound Next Visit Focus/Plan Next Note Type Treatment Note Next Visit Plan Next tx: check if used home cycler, review HEP corner balance and eccentric squats POC: progress ther ex as tolerated start eccentric quad unweighted to decrease pain after standing activity reports today, worse when sits .
--- NOTE | 2022-02-02 11:26 | PT.OTN ---
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 Typically ok when doing work, as soon as gets in car feels pain, goes home and ices. Interrupts her sleep. Hasn't used cane or other device. Step-to pattern on stairs due to pain. Over past week has had some improvements but persists. Denies swelling from knee pain but did previously due to clot in knee x 2 . Now taking blood thinners. Denies clicking, popping, giving way. No current exercise program, reports I watch a lot of TV. Prior Treatments and Tests x-ray: negative for osseus abnormality. Future Testing and Treatments Planned return to doctor if PT not helpful. Treatment Goals Patient/Caregiver Goals minimize knee pain, be able to sleep without pain, be able to complete alf work without an increase in pain PT-OP-C Subjective Start: 01/10/22 12:06 Freq: Status: Active Protocol: Document 02/02/22 10:34 SAK (Rec: 02/02/22 11:26 SAK [id number]) OP-PT Subjective Patient Comments Patient Comments Reports swelling in foot and ankle better, wearing compression stockings more consistently. Hasn't used floor stepper or been taking walks: I don't have much motivation. PT-OP-E Functional Tests Start: 01/10/22 12:06 Freq: Status: Active Protocol: Document 01/30/22 10:32 SP (Rec: 01/30/22 11:35 SP [id number]) Functional Tests Five Times Sit to Stand Test Score 20 Comments arm across chest, white folding chair painfree PT-OP-G Mobility & Gait Start: 01/10/22 12:06 Freq: Status: Active Protocol: Document 01/11/22 09:06 SAK (Rec: 01/11/22 20:14 SAK [id number]) OP Mobility Evaluation Transfers Sit to Stand indep, decreased weightpbearing through right LE, uses hands Functional Movements Squats painful OP Gait Assessment Gait Gait Assistance Required: Independent Assistive Devices Assistive Device None Gait Deviations General Gait Pattern Decreased Stride Length, Decreased Feet Clearance Stair Climbing Evaluation Evaluation Level of Assist On Stairs Standby Assistance Devices Stair Climbing Assistive Devices Left Railing,Right Railing Technique/Endurance Stair Climbing Technique Step to Step PT-OP-H Neuro Start: 01/10/22 12:06 Freq: Status: Active Protocol: Document 01/11/22 09:06 SAK (Rec: 01/11/22 20:14 [facility] [id number]) Sensation Evaluation Gross Sensation Gross Sensation WNL Comments Summary Comments denies N/T, giving way PT-OP-J Posture/Palpation/Skin Start: 01/10/22 12:06 Freq: Status: Active Protocol: Document 01/11/22 09:06 SAK (Rec: 01/11/22 20:14 [facility] [id number]) Posture Evaluation Position Standing Knee Posture (R) Genu Varus,(R) Ext. Tibial Torsion Ankle/Foot Posture (R) Pronated,(R) Calcaneal Eversion,(R) Forefoot Eversion Palpation Assessment Location right knee Palpation Location medial joint line Palpation Findings Tenderness Skin Assessment Edema Assessment right knee Edema Type Non-Pitting Edema Degree 2+ PT-OP-K Range of Motion Start: 01/10/22 12:06 Freq: Status: Active Protocol: Document 01/11/22 09:06 SAK (Rec: 01/11/22 20:14 SAK [id number]) Hip Goniometric Range of Motion Hip felisa Comments SLR right 65, left 55 otherwise bilateral hips WNL Hip ROM Limitations Hip ROM Limitations Soft Tissue Tightness Knee Goniometric Range of Motion Knee Right Flexion Active (degrees) 123 Extension Active (degrees) 0 Left Flexion Active (degrees) 119 Extension Active (degrees) 0 Knee ROM Limitations Knee ROM Limitations Soft Tissue Tightness Comments mod tightness left quads, mild tightness right quads Ankle and Foot Goniometric Range of Motion Ankle and Foot felisa Ankle/Foot ROM WFL Yes PT-OP-L Special Tests Start: 01/10/22 12:06 Freq: Status: Active Protocol: Document 01/11/22 09:06 [facility] (Rec: 01/11/22 20:14 [facility] [id number]) Special Tests Knee Special Tests Luke Test Test Results negative Patellar Grind Test Test Results negative Anterior Draw Test Results negative PT-OP-M Strength Start: 01/10/22 12:06 Freq: Status: Active Protocol: Document 01/11/22 09:06 [facility] (Rec: 01/11/22 20:14 [facility] [id number]) Knee Strength Knee Manual Muscle Testing Right Flexion (S2) 4 Good Extension (L3) 4 Good Left Flexion (S2) 5 Normal Extension (L3) 4+ Good+ Ankle/Foot Strength Ankle and Foot Manual Muscle Testing Right Dorsiflexion (L4) 4 Good Plantarflexion (S1) 4 Good Inversion 4 Good Eversion (S1) 4 Good Left Dorsiflexion (L4) 4+ Good+ Plantarflexion (S1) 4+ Good+ Inversion 4+ Good+ Eversion (S1) 4+ Good+ PT-OP-Q Treatments Start: 01/10/22 12:06 Freq: Status: Active Protocol: Document 02/02/22 10:34 [facility] (Rec: 02/02/22 11:26 [facility] [id number]) Cardio Equipment Recumbent Stepper (Sci-Fit) Duration (Minutes) 8 Resistance 2 Seat Position 10 Other UEs & LEs first 4 min, LE's only second 4 , RPM , 1.10 miles Gym Equipment Shuttle Recovery Unilateral Squats Details cued knee alignment see in sole , L quad fac pause in extension Resistance 37 left, 37 right Shuttle Recovery Platform Stable Reps/Time 2x 10- stated aware discomfort lateral lower leg 2/10 but ok Bilateral Squats Details cued knee alignment with toes. Resistance 62 Shuttle Recovery Platform Stable Reps/Time 2x10 Shuttle Balance chains red Details bal and weight shift Reps/Duration 5 min Therapeutic Exercises Supine Exercises bridge Supine Exercise Name HEP review Reps/Minutes 10x Comments cues for core and gluteal activation, no pushing with arms, hold 5 SLR Supine Exercise Name HEP reviewed Reps/Minutes 10x Comments verbal cues for core and quad fac start with quad set Sidelying Exercises hip abduction Sidelying Exercise Name yoga mat on treatment table for comfort Side bilateral Reps/Minutes 10x Comments Mod cues lay on L side, not roll back, manual guidance for not bringing leg Neuro Re-Education Treatment Balance Activities corner balance Details added to HEP Surface firm Equipment corner at back, chair front Comments EO NBOS, stagger: head turns EC: NBOS 30s, Stagger 10 s each foot position tandem stand added today Self-Care/Home Management Treatment Education Patient Education Body Mechanics,Home Exercise Program,Joint Protection,Pain Management,Posture PT-OP-R Modalities Start: 01/10/22 12:06 Freq: Status: Active Protocol: Document 01/26/22 10:35 [facility] (Rec: 01/26/22 12:00 [facility] [id number]) Ultrasound Therapy Treatment medial right knee Treatment Duration (minutes) 8 Patient Position Hooklying Coupling Medium Ultrasound Gel Frequency Setting (mHz) 1 Mode Setting Continuous Duty Cycle 100% Intensity Setting (w/cm2) 1.2 Comments medial joint line PT-OP-T Assessment and Plan Start: 01/10/22 12:06 Freq: Status: Active Protocol: Document 02/02/22 10:34 [facility] (Rec: 02/02/22 11:26 [facility] [id number]) Physical Therapy Assessment Goals Three Impairment gait impairment, step-to pattern on stairs Political Consultant Goal (LTG) patient able to ascend and descend stairs with alternating pattern and ambulate on level surface with minimal compensation to improve her function at home and in the community. 01/24/22: Goal met: has minimal lateral R lean antaglic during RLE WB painfree, noted bowed LE. able to ascend/ descend 4 stairs x2 sets receiprocal stepping, decreased stance time on R than L but painfree using R HR . LTG Duration 03/12/22 (01/24/22: GOAL MET) Two Impairment weakness right LE Short Term Goal (STG) Patient to be independent and compliant with HEP with purpose of strengthening right LE 4/4/22: pt compliant with HEP: SLR, heel slide, SAQ, side hip abd, seated HS curl increased to #2 TB, STS, step up/downs. STG Duration 02/10/22 (01/30/22: progressing) Longterm Goal (LTG) Patient to demonstrate improved right LE strength to at least 4+/5 all muscle groups to improve her ability to do her usual activities LTG Duration 03/12/22 One Impairment pain right knee as high as 6/ 10 limiting activity tolerance and sleep Political Consultant Goal (LTG) Decrease right knee pain to no greater than 2/10 with all usual activities and patient able to sleep without being wakened due to knee pain. 01/24/22: Progressing: not having paing waking her up at night, sleeping well. only rolling R medial knee assist 5 /10 pain every 2 days. 01/30/22: Progressing: no pain at night and not needing to use Tylenol, but when initially gets up feel like 89 y/o lady. She reports R knee pain 4-5/10 and balance not sturdy. LTG Duration 03/12/22 (progressing 01/30/22) Assessment Summary Assessment Patient denied pain with treatment, able to increase resistance on double leg shuttle leg press, able to tolerate sidelying hip abduction with moderate correction to form including manual PT guidance to keep leg in line with body. Patient compliant to HEP but hasn't yet used stepper, not taking walks for exercise as recommended. Physical Therapy Plan Frequency and Duration Frequency of Treatment 2x/Week Duration of Treatment 8 weeks Plan of Care Start Date 01/11/22 Plan of Care End Date 03/12/22 Therapeutic Interventions Therapeutic Interventions Aquatic Therapy,Gait Training, Home Exercise Program,Joint Mobilizations,Manual Therapy, Neuromuscular Re-education, Patient/Caregiver Education, Self-Care/Home Management,Soft Tissue Mobilization,Taping, Therapeutic Activities, Therapeutic Exercises Modalities Cold Pack/Ice Massage,Electric Stimulation,Hot Packs, Ultrasound Next Visit Focus/Plan Next Note Type Treatment Note Next Visit Plan Continue to encourage use of home stepper, taking walks. Check form with sidelying hip abduction, work on body mechanics for gardening with functional closed chain exercises as tolerated.
--- NOTE | 2022-02-09 10:30 | PT.OTN ---
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 Typically ok when doing work, as soon as gets in car feels pain, goes home and ices. Interrupts her sleep. Hasn't used cane or other device. Step-to pattern on stairs due to pain. Over past week has had some improvements but persists. Denies swelling from knee pain but did previously due to clot in knee x 2 . Now taking blood thinners. Denies clicking, popping, giving way. No current exercise program, reports I watch a lot of TV. Prior Treatments and Tests x-ray: negative for osseus abnormality. Future Testing and Treatments Planned return to doctor if PT not helpful. Treatment Goals Patient/Caregiver Goals minimize knee pain, be able to sleep without pain, be able to complete halfway work without an increase in pain PT-OP-C Subjective Start: 01/10/22 12:06 Freq: Status: Active Protocol: Document 02/09/22 09:50 SP (Rec: 02/09/22 10:33 SP [id number]) OP-PT Subjective Patient Comments Patient Comments Pt states feeling really good, alot better, no pain today. PT-OP-E Functional Tests Start: 01/10/22 12:06 Freq: Status: Active Protocol: Document 02/09/22 09:50 SP (Rec: 02/09/22 10:33 SP [id number]) Functional Tests Five Times Sit to Stand Test Score 17sec Comments arm across chest, white folding chair painfree PT-OP-G Mobility & Gait Start: 01/10/22 12:06 Freq: Status: Active Protocol: Document 01/11/22 09:06 SAK (Rec: 01/11/22 20:14 SAK [id number]) OP Mobility Evaluation Transfers Sit to Stand indep, decreased weightpbearing through right LE, uses hands Functional Movements Squats painful OP Gait Assessment Gait Gait Assistance Required: Independent Assistive Devices Assistive Device None Gait Deviations General Gait Pattern Decreased Stride Length, Decreased Feet Clearance Stair Climbing Evaluation Evaluation Level of Assist On Stairs Standby Assistance Devices Stair Climbing Assistive Devices Left Railing,Right Railing Technique/Endurance Stair Climbing Technique Step to Step PT-OP-H Neuro Start: 01/10/22 12:06 Freq: Status: Active Protocol: Document 01/11/22 09:06 SAK (Rec: 01/11/22 20:14 SAK [id number]) Sensation Evaluation Gross Sensation Gross Sensation WNL Comments Summary Comments denies N/T, giving way PT-OP-J Posture/Palpation/Skin Start: 01/10/22 12:06 Freq: Status: Active Protocol: Document 01/11/22 09:06 SAK (Rec: 01/11/22 20:14 SAK [id number]) Posture Evaluation Position Standing Knee Posture (R) Genu Varus,(R) Ext. Tibial Torsion Ankle/Foot Posture (R) Pronated,(R) Calcaneal Eversion,(R) Forefoot Eversion Palpation Assessment Location right knee Palpation Location medial joint line Palpation Findings Tenderness Skin Assessment Edema Assessment right knee Edema Type Non-Pitting Edema Degree 2+ PT-OP-K Range of Motion Start: 01/10/22 12:06 Freq: Status: Active Protocol: Document 01/11/22 09:06 SAK (Rec: 01/11/22 20:14 SAK [id number]) Hip Goniometric Range of Motion Hip felisa Comments SLR right 65, left 55 otherwise bilateral hips WNL Hip ROM Limitations Hip ROM Limitations Soft Tissue Tightness Knee Goniometric Range of Motion Knee Right Flexion Active (degrees) 123 Extension Active (degrees) 0 Left Flexion Active (degrees) 119 Extension Active (degrees) 0 Knee ROM Limitations Knee ROM Limitations Soft Tissue Tightness Comments mod tightness left quads, mild tightness right quads Ankle and Foot Goniometric Range of Motion Ankle and Foot felisa Ankle/Foot ROM WFL Yes PT-OP-L Special Tests Start: 01/10/22 12:06 Freq: Status: Active Protocol: Document 01/11/22 09:06 SAK (Rec: 01/11/22 20:14 SAK [id number]) Special Tests Knee Special Tests Luke Test Test Results negative Patellar Grind Test Test Results negative Anterior Draw Test Results negative PT-OP-M Strength Start: 01/10/22 12:06 Freq: Status: Active Protocol: Document 01/11/22 09:06 SAK (Rec: 01/11/22 20:14 SAK [id number]) Knee Strength Knee Manual Muscle Testing Right Flexion (S2) 4 Good Extension (L3) 4 Good Left Flexion (S2) 5 Normal Extension (L3) 4+ Good+ Ankle/Foot Strength Ankle and Foot Manual Muscle Testing Right Dorsiflexion (L4) 4 Good Plantarflexion (S1) 4 Good Inversion 4 Good Eversion (S1) 4 Good Left Dorsiflexion (L4) 4+ Good+ Plantarflexion (S1) 4+ Good+ Inversion 4+ Good+ Eversion (S1) 4+ Good+ PT-OP-Q Treatments Start: 01/10/22 12:06 Freq: Status: Active Protocol: Document 02/09/22 09:50 SP (Rec: 02/09/22 10:33 SP [id number]) Gym Equipment Shuttle Balance chains red Details bal and weight shift Reps/Duration 8 min Comments Min A Therapeutic Exercises Sitting Exercises STS Sitting Exercise Name chair squat/modified taps, added to HEP Equipment Used arms across chest, folding chair Reps/Minutes 2x5 reps painfree, 5 STS in 17 sec Comments min, emphasis on pain-free range . elevated table with shallow squat tolera Neuro Re-Education Treatment Balance Activities obstacle course Details balance recovery and SLS TA/ hip abd fac Equipment 4 hurdles, floor > blue/ green cushions Reps/Duration x4 laps (10 ft length) Comments cued alignment, core and hip abd fac. LOB x2 (foot caught x 2 mod A recovery), improved SLS time last 3 lengths corner balance Details reviewed HEP Surface firm Equipment corner at back, chair front Reps/Duration 8 min Comments EC NBOS, stagger: EC 30 s each foot position EC: Tandem stand 30s then added head turns, cued slow balanced ROM, WB between BLE evenly Self-Care/Home Management Treatment Education Patient Education Home Exercise Program Other Education TIme spent strategies for using stepper and walks outside: post-it notes in house for reminders. Walks 5 min out/ back or 1-2 blocks out/back and use stepper 10 min 3xwk for both and alternating day each for success performance. PT-OP-R Modalities Start: 01/10/22 12:06 Freq: Status: Active Protocol: Document 01/26/22 10:35 SAK (Rec: 01/26/22 12:00 SAK [id number]) Ultrasound Therapy Treatment medial right knee Treatment Duration (minutes) 8 Patient Position Hooklying Coupling Medium Ultrasound Gel Frequency Setting (mHz) 1 Mode Setting Continuous Duty Cycle 100% Intensity Setting (w/cm2) 1.2 Comments medial joint line PT-OP-T Assessment and Plan Start: 01/10/22 12:06 Freq: Status: Active Protocol: Document 02/09/22 09:50 SP (Rec: 02/09/22 10:33 SP [id number]) Physical Therapy Assessment Goals Three Impairment gait impairment, step-to pattern on stairs Night Custodian Goal (LTG) patient able to ascend and descend stairs with alternating pattern and ambulate on level surface with minimal compensation to improve her function at home and in the community. 01/24/22: Goal met: has minimal lateral R lean antaglic during RLE WB painfree, noted bowed LE. able to ascend/ descend 4 stairs x2 sets receiprocal stepping, decreased stance time on R than L but painfree using R HR . LTG Duration 03/12/22 (01/24/22: GOAL MET) Two Impairment weakness right LE Short Term Goal (STG) Patient to be independent and compliant with HEP with purpose of strengthening right LE 01/30/22: pt compliant with HEP: SLR, heel slide, SAQ, side hip abd, seated HS curl increased to #2 TB, STS, step up/downs. STG Duration 02/10/22 (01/30/22: progressing) Night Custodian Goal (LTG) Patient to demonstrate improved right LE strength to at least 4+/5 all muscle groups to improve her ability to do her usual activities LTG Duration 03/12/22 One Impairment pain right knee as high as 6/ 10 limiting activity tolerance and sleep Fpc Goal (LTG) Decrease right knee pain to no greater than 2/10 with all usual activities and patient able to sleep without being wakened due to knee pain. 01/24/22: Progressing: not having paing waking her up at night, sleeping well. only rolling R medial knee assist 5 /10 pain every 2 days. 01/30/22: Progressing: no pain at night and not needing to use Tylenol, but when initially gets up feel like 89 y/o lady. She reports R knee pain 4-5/10 and balance not sturdy. LTG Duration 03/12/22 (progressing 01/30/22) Assessment Summary Assessment Pt no pain during ther ex this tx able progress eccentric sits, able balance corner EC 30 sec, tandem able progress head turns, cued for wt shift forward into front foot for equal WB stability. Encouraged increase activitiy seated stepper and walks outside with strategies to remind self to do so. Physical Therapy Plan Frequency and Duration Frequency of Treatment 2x/Week Duration of Treatment 8 weeks Plan of Care Start Date 01/11/22 Plan of Care End Date 03/12/22 Therapeutic Interventions Therapeutic Interventions Aquatic Therapy,Gait Training, Home Exercise Program,Joint Mobilizations,Manual Therapy, Neuromuscular Re-education, Patient/Caregiver Education, Self-Care/Home Management,Soft Tissue Mobilization,Taping, Therapeutic Activities, Therapeutic Exercises Modalities Cold Pack/Ice Massage,Electric Stimulation,Hot Packs, Ultrasound Next Visit Focus/Plan Next Note Type Treatment Note Next Visit Plan CHeck if use stepper, taking walks outside, balance activities for functional strengthening. CHeck/work on body mechanics for gardening with functional closed chain exercises as tolerated.
--- NOTE | 2022-02-16 09:01 | PT.OTN ---
Current Diagnoses Acute embolism and thrombosis of unspecified deep veins of unspecified lower extremity (02/16/22) Pain in right knee (02/16/22) Difficulty in walking, not elsewhere classified (02/16/22) Weakness (02/16/22) Physical Therapy Treatment Note PT-OP-A Visit Information Start: 01/10/22 12:06 Freq: Status: Active Protocol: Document 02/16/22 08:13 SAK (Rec: 02/16/22 09:01 SAK [id number]) Out-Patient Physical Therapy Visit Information Visit Information Visit Type Treatment Note Visit Start Time 08:15 Visit Stop Time 09:00 Total Visit Minutes 45 Visit Number 9 Number of SOLAR ENERGY SYSTEMS ENGINEER Visits 0 Evaluation Information Evaluation Date 01/11/22 Precautions Precautions history of blood clots; on long-term anticoagulation, DM Type II, history [place] PT-OP-B Current Condition Start: 01/10/22 12:06 Freq: Status: Active Protocol: Document 01/17/22 13:01 SAK (Rec: 01/17/22 13:48 SAK [id number]) Current Condition History of Current Condition Onset Date 6 months Current Complaints right knee pain History of Current Condition Right knee pain no known reason except 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 Typically ok when doing work, as soon as gets in car feels pain, goes home and ices. Interrupts her sleep. Hasn't used cane or other device. Step-to pattern on stairs due to pain. Over past week has had some improvements but persists. Denies swelling from knee pain but did previously due to clot in knee x 2 . Now taking blood thinners. Denies clicking, popping, giving way. No current exercise program, reports I watch a lot of TV. Prior Treatments and Tests x-ray: negative for osseus abnormality. Future Testing and Treatments Planned return to doctor if PT not helpful. 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 Has been using her stepper, has walked a little. PT-OP-E Functional Tests Start: 01/10/22 12:06 Freq: Status: Active Protocol: Document 02/09/22 09:50 SP (Rec: 02/09/22 10:33 SP [id number]) Functional Tests Five Times Sit to Stand Test Score 17sec Comments arm across chest, white folding chair painfree PT-OP-G Mobility & Gait Start: 01/10/22 12:06 Freq: Status: Active Protocol: Document 01/11/22 09:06 SAK (Rec: 01/11/22 20:14 SAK [id number]) OP Mobility Evaluation Transfers Sit to Stand indep, decreased weightpbearing through right LE, uses hands Functional Movements Squats painful OP Gait Assessment Gait Gait Assistance Required: Independent Assistive Devices Assistive Device None Gait Deviations General Gait Pattern Decreased Stride Length, Decreased Feet Clearance Stair Climbing Evaluation Evaluation Level of Assist On Stairs Standby Assistance Devices Stair Climbing Assistive Devices Left Railing,Right Railing Technique/Endurance Stair Climbing Technique Step to Step PT-OP-H Neuro Start: 01/10/22 12:06 Freq: Status: Active Protocol: Document 01/11/22 09:06 SAK (Rec: 01/11/22 20:14 [facility] [id number]) Sensation Evaluation Gross Sensation Gross Sensation WNL Comments Summary Comments denies N/T, giving way PT-OP-J Posture/Palpation/Skin Start: 01/10/22 12:06 Freq: Status: Active Protocol: Document 01/11/22 09:06 SAK (Rec: 01/11/22 20:14 [facility] [id number]) Posture Evaluation Position Standing Knee Posture (R) Genu Varus,(R) Ext. Tibial Torsion Ankle/Foot Posture (R) Pronated,(R) Calcaneal Eversion,(R) Forefoot Eversion Palpation Assessment Location right knee Palpation Location medial joint line Palpation Findings Tenderness Skin Assessment Edema Assessment right knee Edema Type Non-Pitting Edema Degree 2+ PT-OP-K Range of Motion Start: 01/10/22 12:06 Freq: Status: Active Protocol: Document 01/11/22 09:06 SAK (Rec: 01/11/22 20:14 SAK [id number]) Hip Goniometric Range of Motion Hip felisa Comments SLR right 65, left 55 otherwise bilateral hips WNL Hip ROM Limitations Hip ROM Limitations Soft Tissue Tightness Knee Goniometric Range of Motion Knee Right Flexion Active (degrees) 123 Extension Active (degrees) 0 Left Flexion Active (degrees) 119 Extension Active (degrees) 0 Knee ROM Limitations Knee ROM Limitations Soft Tissue Tightness Comments mod tightness left quads, mild tightness right quads Ankle and Foot Goniometric Range of Motion Ankle and Foot felisa Ankle/Foot ROM WFL Yes PT-OP-L Special Tests Start: 01/10/22 12:06 Freq: Status: Active Protocol: Document 01/11/22 09:06 [facility] (Rec: 01/11/22 20:14 [facility] [id number]) Special Tests Knee Special Tests Luke Test Test Results negative Patellar Grind Test Test Results negative Anterior Draw Test Results negative PT-OP-M Strength Start: 01/10/22 12:06 Freq: Status: Active Protocol: Document 01/11/22 09:06 [facility] (Rec: 01/11/22 20:14 [facility] [id number]) Knee Strength Knee Manual Muscle Testing Right Flexion (S2) 4 Good Extension (L3) 4 Good Left Flexion (S2) 5 Normal Extension (L3) 4+ Good+ Ankle/Foot Strength Ankle and Foot Manual Muscle Testing Right Dorsiflexion (L4) 4 Good Plantarflexion (S1) 4 Good Inversion 4 Good Eversion (S1) 4 Good Left Dorsiflexion (L4) 4+ Good+ Plantarflexion (S1) 4+ Good+ Inversion 4+ Good+ Eversion (S1) 4+ Good+ PT-OP-Q Treatments Start: 01/10/22 12:06 Freq: Status: Active Protocol: Document 02/16/22 08:13 [facility] (Rec: 02/16/22 09:01 [facility] [id number]) Cardio Equipment Recumbent Stepper (Sci-Fit) Duration (Minutes) 11 Resistance 2-2.5 Seat Position 10 Other UEs & LEs first 6 min, LE's only last 5 min , RPM , 1.10 miles Gym Equipment Shuttle Recovery Unilateral Squats Details cued knee alignment see in sole , L quad fac pause in extension Resistance 37 left, 37 right Shuttle Recovery Platform Stable Reps/Time 2x 10- stated aware discomfort lateral lower leg 2/10 but ok Bilateral Squats Details cued knee alignment with toes. Resistance 75 Shuttle Recovery Platform Stable Reps/Time 2x10 Shuttle Balance chains red Details bal and weight shift Reps/Duration 8 min Comments Min A Sport Cord green cord Exercise Details fwd, bck, side Cord/Resistance green Reps/Duration 5x Therapeutic Exercises Sidelying Exercises hip abduction Sidelying Exercise Name yoga mat on treatment table for comfort Side bilateral Reps/Minutes 10x Comments Mod cues lay on L side, not roll back, manual guidance for not bringing leg Neuro Re-Education Treatment Balance Activities obstacle course Details balance recovery and SLS TA/ hip abd fac Equipment 4 hurdles, floor > blue/ green cushions, square blue and hutchinson cushions Reps/Duration x4 laps (10 ft length) Comments cued alignment, core and hip abd fac. LOB x2 (foot caught x 2 mod A recovery), improved SLS time last 3 lengths corner balance Details reviewed HEP Comments Could add foam for inc challenge Self-Care/Home Management Treatment Education Other Education reviewed during Sci-fit time PT-OP-R Modalities Start: 01/10/22 12:06 Freq: Status: Active Protocol: Document 01/26/22 10:35 [facility] (Rec: 01/26/22 12:00 [facility] [id number]) Ultrasound Therapy Treatment medial right knee Treatment Duration (minutes) 8 Patient Position Hooklying Coupling Medium Ultrasound Gel Frequency Setting (mHz) 1 Mode Setting Continuous Duty Cycle 100% Intensity Setting (w/cm2) 1.2 Comments medial joint line PT-OP-T Assessment and Plan Start: 01/10/22 12:06 Freq: Status: Active Protocol: Document 02/16/22 08:13 [facility] (Rec: 02/16/22 09:01 [facility] [id number]) Physical Therapy Assessment Goals Three Impairment gait impairment, step-to pattern on stairs Pipe Fitter Supervisor Maintenance Goal (LTG) patient able to ascend and descend stairs with alternating pattern and ambulate on level surface with minimal compensation to improve her function at home and in the community. 01/24/22: Goal met: has minimal lateral R lean antaglic during RLE WB painfree, noted bowed LE. able to ascend/ descend 4 stairs x2 sets receiprocal stepping, decreased stance time on R than L but painfree using R HR . LTG Duration 03/12/22 (01/24/22: GOAL MET) Two Impairment weakness right LE Short Term Goal (STG) Patient to be independent and compliant with HEP with purpose of strengthening right LE 01/30/22: pt compliant with HEP: SLR, heel slide, SAQ, side hip abd, seated HS curl increased to #2 TB, STS, step up/downs. STG Duration 02/10/22 (01/30/22: progressing) Pipe Fitter Supervisor Maintenance Goal (LTG) Patient to demonstrate improved right LE strength to at least 4+/5 all muscle groups to improve her ability to do her usual activities LTG Duration 03/12/22 One Impairment pain right knee as high as 6/ 10 limiting activity tolerance and sleep Pipe Fitter Supervisor Maintenance Goal (LTG) Decrease right knee pain to no greater than 2/10 with all usual activities and patient able to sleep without being wakened due to knee pain. 01/24/22: Progressing: not having paing waking her up at night, sleeping well. only rolling R medial knee assist 5 /10 pain every 2 days. 01/30/22: Progressing: no pain at night and not needing to use Tylenol, but when initially gets up feel like 89 y/o lady. She reports R knee pain 4-5/10 and balance not sturdy. LTG Duration 03/12/22 (progressing 01/30/22) Assessment Summary Assessment 1.58 miles on Sci-Fit with increased resistance and time. Has been using stepper at home. Needed mod assist x1, min assist x 3. Physical Therapy Plan Frequency and Duration Frequency of Treatment 2x/Week Duration of Treatment 8 weeks Plan of Care Start Date 01/11/22 Plan of Care End Date 03/12/22 Therapeutic Interventions Therapeutic Interventions Aquatic Therapy,Gait Training, Home Exercise Program,Joint Mobilizations,Manual Therapy, Neuromuscular Re-education, Patient/Caregiver Education, Self-Care/Home Management,Soft Tissue Mobilization,Taping, Therapeutic Activities, Therapeutic Exercises Modalities Cold Pack/Ice Massage,Electric Stimulation,Hot Packs, Ultrasound Next Visit Focus/Plan Next Note Type Treatment Note Next Visit Plan Progress with ther ex for strengthening, balance, functional stenthening. Work on body mechanics for strengthening.
--- NOTE | 2022-02-22 09:08 | PT.OTN ---
Current Diagnoses Acute embolism and thrombosis of unspecified deep veins of unspecified lower extremity (02/22/22) Pain in right knee (02/22/22) Difficulty in walking, not elsewhere classified (02/22/22) Weakness (02/22/22) Physical Therapy Treatment Note PT-OP-A Visit Information Start: 01/10/22 12:06 Freq: Status: Active Protocol: Document 02/22/22 08:17 SP (Rec: 02/22/22 09:19 SP [id number]) Out-Patient Physical Therapy Visit Information Visit Information Visit Type Treatment Note Visit Note States takes 100 mg Metropal BP med in am. Vitals post shuttle bal dizziness and reports hot need sit: 116/67 HR 54 97% on Ra ( states is low usually in 140s) 2 min seated rest: 106/? HR 54 5 min rest: seated 111/59 HR 54 5 min stand: 107/65 HR 56 Visit Start Time 08:17 Visit Stop Time 09:08 Total Visit Minutes 51 Visit Number 10 Number of BLOOD DONOR RECRUITER SUPERVISOR Visits 1 Evaluation Information Evaluation Date 01/11/22 Precautions Precautions history of blood clots; on long-term anticoagulation, DM Type II, history [place] PT-OP-B Current Condition Start: 01/10/22 12:06 Freq: Status: Active Protocol: Document 01/17/22 13:01 SAK (Rec: 01/17/22 13:48 SAK [id number]) Current Condition History of Current Condition Onset Date 6 months Current Complaints right knee pain History of Current Condition Right knee pain no known reason except 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 Typically ok when doing work, as soon as gets in car feels pain, goes home and ices. Interrupts her sleep. Hasn't used cane or other device. Step-to pattern on stairs due to pain. Over past week has had some improvements but persists. Denies swelling from knee pain but did previously due to clot in knee x 2 . Now taking blood thinners. Denies clicking, popping, giving way. No current exercise program, reports I watch a lot of TV. Prior Treatments and Tests x-ray: negative for osseus abnormality. Future Testing and Treatments Planned return to doctor if PT not helpful. 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 She reports the back of her R knee hurting , more stepping down so had to step to gait. Pt stated was tired after last tx but no adverse affects to tx. Pt stated using the cycler at home at feels a good work out and tiring, suprised how elevated cardio and challenged breath needing rest breaks, total 30 min. Took BP meds before tx, didn't eat breakfast PT-OP-E Functional Tests Start: 01/10/22 12:06 Freq: Status: Active Protocol: Document 02/09/22 09:50 SP (Rec: 02/09/22 10:33 SP [id number]) Functional Tests Five Times Sit to Stand Test Score 17sec Comments arm across chest, white folding chair painfree PT-OP-G Mobility & Gait Start: 01/10/22 12:06 Freq: Status: Active Protocol: Document 01/11/22 09:06 SAK (Rec: 01/11/22 20:14 SAK [id number]) OP Mobility Evaluation Transfers Sit to Stand indep, decreased weightpbearing through right LE, uses hands Functional Movements Squats painful OP Gait Assessment Gait Gait Assistance Required: Independent Assistive Devices Assistive Device None Gait Deviations General Gait Pattern Decreased Stride Length, Decreased Feet Clearance Stair Climbing Evaluation Evaluation Level of Assist On Stairs Standby Assistance Devices Stair Climbing Assistive Devices Left Railing,Right Railing Technique/Endurance Stair Climbing Technique Step to Step PT-OP-H Neuro Start: 01/10/22 12:06 Freq: Status: Active Protocol: Document 01/11/22 09:06 SAK (Rec: 01/11/22 20:14 SAK [id number]) Sensation Evaluation Gross Sensation Gross Sensation WNL Comments Summary Comments denies N/T, giving way PT-OP-J Posture/Palpation/Skin Start: 01/10/22 12:06 Freq: Status: Active Protocol: Document 01/11/22 09:06 SAK (Rec: 01/11/22 20:14 [facility] [id number]) Posture Evaluation Position Standing Knee Posture (R) Genu Varus,(R) Ext. Tibial Torsion Ankle/Foot Posture (R) Pronated,(R) Calcaneal Eversion,(R) Forefoot Eversion Palpation Assessment Location right knee Palpation Location medial joint line Palpation Findings Tenderness Skin Assessment Edema Assessment right knee Edema Type Non-Pitting Edema Degree 2+ PT-OP-K Range of Motion Start: 01/10/22 12:06 Freq: Status: Active Protocol: Document 01/11/22 09:06 [facility] (Rec: 01/11/22 20:14 [facility] [id number]) Hip Goniometric Range of Motion Hip felisa Comments SLR right 65, left 55 otherwise bilateral hips WNL Hip ROM Limitations Hip ROM Limitations Soft Tissue Tightness Knee Goniometric Range of Motion Knee Right Flexion Active (degrees) 123 Extension Active (degrees) 0 Left Flexion Active (degrees) 119 Extension Active (degrees) 0 Knee ROM Limitations Knee ROM Limitations Soft Tissue Tightness Comments mod tightness left quads, mild tightness right quads Ankle and Foot Goniometric Range of Motion Ankle and Foot felisa Ankle/Foot ROM WFL Yes PT-OP-L Special Tests Start: 01/10/22 12:06 Freq: Status: Active Protocol: Document 01/11/22 09:06 [facility] (Rec: 01/11/22 20:14 [facility] [id number]) Special Tests Knee Special Tests Luke Test Test Results negative Patellar Grind Test Test Results negative Anterior Draw Test Results negative PT-OP-M Strength Start: 01/10/22 12:06 Freq: Status: Active Protocol: Document 01/11/22 09:06 [facility] (Rec: 01/11/22 20:14 [facility] [id number]) Knee Strength Knee Manual Muscle Testing Right Flexion (S2) 4 Good Extension (L3) 4 Good Left Flexion (S2) 5 Normal Extension (L3) 4+ Good+ Ankle/Foot Strength Ankle and Foot Manual Muscle Testing Right Dorsiflexion (L4) 4 Good Plantarflexion (S1) 4 Good Inversion 4 Good Eversion (S1) 4 Good Left Dorsiflexion (L4) 4+ Good+ Plantarflexion (S1) 4+ Good+ Inversion 4+ Good+ Eversion (S1) 4+ Good+ PT-OP-Q Treatments Start: 01/10/22 12:06 Freq: Status: Active Protocol: Document 02/22/22 08:17 SP (Rec: 02/22/22 09:19 SP [id number]) Cardio Equipment Recumbent Elliptical (Biodex) Duration (Minutes) 8 Resistance 4 Seat Position see 6 Other UEs/ LEs painfree, 722 steps total, 50 RPM Gym Equipment Shuttle Balance chains red Details bal, weight shift, little head turn slow Reps/Duration 8 min Comments Min A WBOS, NBOS 1 between, stagger 2 between BLE Sport Cord green cord Exercise Details fwd, bck, side floor; fwd/back steps 4 step Cord/Resistance green Reps/Duration x5 reps each direction Comments cued trunk alignment/core, hip fac eccentric recovery SLS stance and foot clerance. Therapeutic Exercises Standing Exercises HS stretch Standing Exercise Name added to HEP if needed Side right Resistance stand contact rail (street sign discussed) vs seated Equipment Used prop LE on 2nd step, hip hinge Reps/Minutes 30 x2 Comments good understanding and stretch calf stretch Standing Exercise Name alternate LEs Side bilateral Equipment Used DEENA, rail Reps/Minutes 30s hold x2 Comments good feedback stretch- recommended 1 LE at time hld Self-Care/Home Management Treatment Education Patient Education Safety Other Education BLOOD DONOR RECRUITER SUPERVISOR educated importance of hydration and food intake pre PT with meds for safety mobility and suggested BP log in am pre tx and will take pre and with activity for safety. PT-OP-R Modalities Start: 01/10/22 12:06 Freq: Status: Active Protocol: Document 01/26/22 10:35 [facility] (Rec: 01/26/22 12:00 [facility] [id number]) Ultrasound Therapy Treatment medial right knee Treatment Duration (minutes) 8 Patient Position Hooklying Coupling Medium Ultrasound Gel Frequency Setting (mHz) 1 Mode Setting Continuous Duty Cycle 100% Intensity Setting (w/cm2) 1.2 Comments medial joint line PT-OP-T Assessment and Plan Start: 01/10/22 12:06 Freq: Status: Active Protocol: Document 02/22/22 08:17 SP (Rec: 02/22/22 09:19 SP [id number]) Physical Therapy Assessment Goals Three Impairment gait impairment, step-to pattern on stairs Manager Culinary Goal (LTG) patient able to ascend and descend stairs with alternating pattern and ambulate on level surface with minimal compensation to improve her function at home and in the community. 01/24/22: Goal met: has minimal lateral R lean antaglic during RLE WB painfree, noted bowed LE. able to ascend/ descend 4 stairs x2 sets receiprocal stepping, decreased stance time on R than L but painfree using R HR . LTG Duration 03/12/22 (01/24/22: GOAL MET) Two Impairment weakness right LE Short Term Goal (STG) Patient to be independent and compliant with HEP with purpose of strengthening right LE 01/30/22: pt compliant with HEP: SLR, heel slide, SAQ, side hip abd, seated HS curl increased to #2 TB, STS, step up/downs. 02/22/22: added hs and calf stretch, is also doing corner balance. STG Duration 02/10/22 (02/22/22: progressing) Group Home Goal (LTG) Patient to demonstrate improved right LE strength to at least 4+/5 all muscle groups to improve her ability to do her usual activities LTG Duration 03/12/22 One Impairment pain right knee as high as 6/ 10 limiting activity tolerance and sleep Group Home Goal (LTG) Decrease right knee pain to no greater than 2/10 with all usual activities and patient able to sleep without being wakened due to knee pain. 01/24/22: Progressing: not having paing waking her up at night, sleeping well. only rolling R medial knee assist 5 /10 pain every 2 days. 01/30/22: Progressing: no pain at night and not needing to use Tylenol, but when initially gets up feel like 89 y/o lady. She reports R knee pain 4-5/10 and balance not sturdy. 02/22/22: no pain night time. States pain less than 2/10 but not quantified but not consistant lately. LTG Duration 03/12/22 (progressing 02/22/22) Assessment Summary Assessment Pt improved core and hip abd fac with eccentric stepping sport cord, able add ascend/ descend 4 step CGA. Initated small head turn to shuttle balance stated good challenge and tiring and improved self corrections with cues for stability but end 8 min became symptomatic little dizzy and hot feeling. Provided seated rest and noted orthostatic with report BP usually in 140s . BLOOD DONOR RECRUITER SUPERVISOR educated importance of hydration and food intake pre PT with meds for safety mobility and suggested BP log in am pre tx and will take pre and with activity for safety. Pt non symptomatic but low BP according to her norm given it was pre PT. Pt felt was ok end tx to leave and will take advise into account. Physical Therapy Plan Frequency and Duration Frequency of Treatment 2x/Week Duration of Treatment 8 weeks Plan of Care Start Date 01/11/22 Plan of Care End Date 03/12/22 Therapeutic Interventions Therapeutic Interventions Aquatic Therapy,Gait Training, Home Exercise Program,Joint Mobilizations,Manual Therapy, Neuromuscular Re-education, Patient/Caregiver Education, Self-Care/Home Management,Soft Tissue Mobilization,Taping, Therapeutic Activities, Therapeutic Exercises Modalities Cold Pack/Ice Massage,Electric Stimulation,Hot Packs, Ultrasound Next Visit Focus/Plan Next Note Type Treatment Note Next Visit Plan Progress with ther ex for strengthening, balance, functional stenthening. Work on body mechanics for strengthening.
--- NOTE | 2022-02-23 16:00 | PT.OPPN ---
Current Diagnoses Acute embolism and thrombosis of unspecified deep veins of unspecified lower extremity (02/24/22) Pain in right knee (02/24/22) Difficulty in walking, not elsewhere classified (02/24/22) Weakness (02/24/22) Physical Therapy Progress Note PT-OP-A Visit Information Start: 01/10/22 12:06 Freq: Status: Active Protocol: Document 02/27/22 15:42 SAK (Rec: 02/27/22 15:44 SAK [id number]) Out-Patient Physical Therapy Visit Information Visit Information Visit Type Other Visit Note DNS; spoke with patient by phone. She apologized for forgetting as her grandaughter just had a still and they are getting ready for [facility] service this week. She is aware of next scheduled appointment 03/24/22 and is on waiting list if anything opens up sooner. PT-OP-B Current Condition Start: 01/10/22 12:06 Freq: Status: Active Protocol: Document 01/17/22 13:01 SAK (Rec: 01/17/22 13:48 SAK [id number]) Current Condition History of Current Condition Onset Date 6 months Current Complaints right knee pain History of Current Condition Right knee pain no known reason except patient thinks possibly due to long term 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 Typically ok when doing work, as soon as gets in car feels pain, goes home and ices. Interrupts her sleep. Hasn't used cane or other device. Step-to pattern on stairs due to pain. Over past week has had some improvements but persists. Denies swelling from knee pain but did previously due to clot in knee x 2 . Now taking blood thinners. Denies clicking, popping, giving way. No current exercise program, reports I watch a lot of TV. Prior Treatments and Tests x-ray: negative for osseus abnormality. Future Testing and Treatments Planned return to doctor if PT not helpful. Treatment Goals Patient/Caregiver Goals minimize knee pain, be able to sleep without pain, be able to complete long term work without an increase in pain PT-OP-C Subjective Start: 01/10/22 12:06 Freq: Status: Active Protocol: Document 02/24/22 08:18 SP (Rec: 02/24/22 09:08 SP [id number]) OP-PT Subjective Patient Comments Patient Comments Pt states BP high this am, took her BP meds at 7am. She was wanting feedback given for high BP but not srue safe to work hard in PT. Pt states family emergency has been causing stress and didnt' sleep mroe than 2 hrs last ngith and possible a contributer. PT-OP-E Functional Tests Start: 01/10/22 12:06 Freq: Status: Active Protocol: Document 02/09/22 09:50 SP (Rec: 02/09/22 10:33 SP [id number]) Functional Tests Five Times Sit to Stand Test Score 17sec Comments arm across chest, white folding chair painfree PT-OP-G Mobility & Gait Start: 01/10/22 12:06 Freq: Status: Active Protocol: Document 01/11/22 09:06 SAK (Rec: 01/11/22 20:14 SAK [id number]) OP Mobility Evaluation Transfers Sit to Stand indep, decreased weightpbearing through right LE, uses hands Functional Movements Squats painful OP Gait Assessment Gait Gait Assistance Required: Independent Assistive Devices Assistive Device None Gait Deviations General Gait Pattern Decreased Stride Length, Decreased Feet Clearance Stair Climbing Evaluation Evaluation Level of Assist On Stairs Standby Assistance Devices Stair Climbing Assistive Devices Left Railing,Right Railing Technique/Endurance Stair Climbing Technique Step to Step PT-OP-H Neuro Start: 01/10/22 12:06 Freq: Status: Active Protocol: Document 01/11/22 09:06 SAK (Rec: 01/11/22 20:14 SAK [id number]) Sensation Evaluation Gross Sensation Gross Sensation WNL Comments Summary Comments denies N/T, giving way PT-OP-J Posture/Palpation/Skin Start: 01/10/22 12:06 Freq: Status: Active Protocol: Document 01/11/22 09:06 SAK (Rec: 01/11/22 20:14 SAK [id number]) Posture Evaluation Position Standing Knee Posture (R) Genu Varus,(R) Ext. Tibial Torsion Ankle/Foot Posture (R) Pronated,(R) Calcaneal Eversion,(R) Forefoot Eversion Palpation Assessment Location right knee Palpation Location medial joint line Palpation Findings Tenderness Skin Assessment Edema Assessment right knee Edema Type Non-Pitting Edema Degree 2+ PT-OP-K Range of Motion Start: 01/10/22 12:06 Freq: Status: Active Protocol: Document 02/24/22 08:18 SP (Rec: 02/24/22 09:08 SP [id number]) Knee Goniometric Range of Motion Knee Measured in Degrees Right Knee ROM WFL No Patient Position Supine Flexion Active (degrees) 128 Extension Active (degrees) 0 Comments Gained 6 deg flexion PT-OP-L Special Tests Start: 01/10/22 12:06 Freq: Status: Active Protocol: Document 01/11/22 09:06 SAK (Rec: 01/11/22 20:14 SAK [id number]) Special Tests Knee Special Tests Luke Test Test Results negative Patellar Grind Test Test Results negative Anterior Draw Test Results negative PT-OP-M Strength Start: 01/10/22 12:06 Freq: Status: Active Protocol: Document 01/11/22 09:06 SAK (Rec: 01/11/22 20:14 SAK [id number]) Knee Strength Knee Manual Muscle Testing Right Flexion (S2) 4 Good Extension (L3) 4 Good Left Flexion (S2) 5 Normal Extension (L3) 4+ Good+ Ankle/Foot Strength Ankle and Foot Manual Muscle Testing Right Dorsiflexion (L4) 4 Good Plantarflexion (S1) 4 Good Inversion 4 Good Eversion (S1) 4 Good Left Dorsiflexion (L4) 4+ Good+ Plantarflexion (S1) 4+ Good+ Inversion 4+ Good+ Eversion (S1) 4+ Good+ PT-OP-T Assessment and Plan Start: 01/10/22 12:06 Freq: Status: Active Protocol: Document 02/24/22 08:18 SP (Rec: 02/24/22 09:08 SP [id number]) Physical Therapy Assessment Goals Three Impairment gait impairment, step-to pattern on stairs [employer] Install[employer] Goal (LTG) patient able to ascend and descend stairs with alternating pattern and ambulate on level surface with minimal compensation to improve her function at home and in the community. 01/24/22: Goal met: has minimal lateral R lean antaglic during RLE WB painfree, noted bowed LE. able to ascend/ descend 4 stairs x2 sets receiprocal stepping, decreased stance time on R than L but painfree using R HR . LTG Duration 03/12/22 (01/24/22: GOAL MET) Two Impairment weakness right LE Short Term Goal (STG) Patient to be independent and compliant with HEP with purpose of strengthening right LE 01/30/22: pt compliant with HEP: SLR, heel slide, SAQ, side hip abd, seated HS curl increased to #2 TB, STS, step up/downs. 02/22/22: added hs and calf stretch, is also doing corner balance. 02/24/22: added band walk to HEP. Also does supine SAQ, qs, STS. STG Duration 02/10/22 (02/24/22: progressing) [employer] Installer Goal (LTG) Patient to demonstrate improved right LE strength to at least 4+/5 all muscle groups to improve her ability to do her usual activities LTG Duration 03/12/22 One Impairment pain right knee as high as 6/ 10 limiting activity tolerance and sleep Prison Goal (LTG) Decrease right knee pain to no greater than 2/10 with all usual activities and patient able to sleep without being wakened due to knee pain. 01/24/22: Progressing: not having paing waking her up at night, sleeping well. only rolling R medial knee assist 5 /10 pain every 2 days. 01/30/22: Progressing: no pain at night and not needing to use Tylenol, but when initially gets up feel like 89 y/o lady. She reports R knee pain 4-5/10 and balance not sturdy. 02/22/22: no pain night time. States pain less than 2/10 but not quantified but not consistant lately. LTG Duration 03/12/22 (progressing 02/22/22) Assessment Summary Assessment Pt states overall receiprocal stepping stairs discomfort but not usually now. Has been back to more normal activity, starting to do some walking outside when can, the little bit pain doesn't restrict her activity. Gained 5 deg R knee flexion AROM. Hypertensive BPs today concerned to add activity, pt keeping log like asked for safety per suggestion last tx and better self awareness, Low activity supine this tx 176/72 HR 58. Improved painfree feedback with activity wtih hurdles and added band walk, BP recovery 148/80 with activity. Pt to see PT next for PN and discuss if ready for DC and continue on own. Needs schedule 1-2 more appts with PT to allow PN and discuss further PT needed . Pt to call Dr Peralta and give feedback of BPs taken recently and if suggest further assessment. Suggested calling Dr Peralta for awareness inelevated BP and feedback suggesting. Physical Therapy Plan Frequency and Duration Frequency of Treatment 2x/Week Duration of Treatment 8 weeks Plan of Care Start Date 01/11/22 Plan of Care End Date 03/12/22 Therapeutic Interventions Therapeutic Interventions Aquatic Therapy,Gait Training, Home Exercise Program,Joint Mobilizations,Manual Therapy, Neuromuscular Re-education, Patient/Caregiver Education, Self-Care/Home Management,Soft Tissue Mobilization,Taping, Therapeutic Activities, Therapeutic Exercises Modalities Cold Pack/Ice Massage,Electric Stimulation,Hot Packs, Ultrasound Next Visit Focus/Plan Next Note Type Treatment Note Next Visit Plan Check vitals: BP. POC: Recheck HEP and Progress with ther ex for strengthening , balance, functional stenthening. Work on body mechanics for strengthening.
--- NOTE | 2022-02-24 09:04 | PT.OTN ---
Addendum entered and electronically signed by Conchita Capellan, SUPERVISOR SHEARING 02/24/22 11:37: ALso performed albino stepping at rail, one contact x1 forward and side stepping, CGA w/ GB no LOB. Responded well, challenged balance little but self recovery sways, painfree. Original Note: Current Diagnoses Acute embolism and thrombosis of unspecified deep veins of unspecified lower extremity (02/24/22) Pain in right knee (02/24/22) Difficulty in walking, not elsewhere classified (02/24/22) Weakness (02/24/22) Physical Therapy Treatment Note PT-OP-A Visit Information Start: 01/10/22 12:06 Freq: Status: Active Protocol: Document 02/24/22 08:18 SP (Rec: 02/24/22 09:08 SP [id number]) Out-Patient Physical Therapy Visit Information Visit Information Visit Type Treatment Note Visit Note Vitals LUE at home in am: 630 am pre med: 177/72 HR 58, 8 am post med: 151/70 HR 50. Taken during tx automated tower LUE: stand arrival: BP 192/87 HR 56 SaO2 99% on RA Seated: 2 min: 186/82, HR 56 Supine: 1 min: 172/73 HR 56 supine activity: 176/72 HR 56. standing with balance activity : 148/80 HR 56 Nonsymptomatic throughout tx. Visit Start Time 08:18 Visit Stop Time 09:04 Total Visit Minutes 46 Visit Number 11 Number of SUPERVISOR SHEARING Visits 2 Evaluation Information Evaluation Date 01/11/22 Precautions Precautions history of blood clots; on long-term anticoagulation, DM Type II, history OR PT-OP-B Current Condition Start: 01/10/22 12:06 Freq: Status: Active Protocol: Document 01/17/22 13:01 SAK (Rec: 01/17/22 13:48 SAK [id number]) Current Condition History of Current Condition Onset Date 6 months Current Complaints right knee pain History of Current Condition Right knee pain no known reason except patient thinks possibly due to retirement 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 Typically ok when doing work, as soon as gets in car feels pain, goes home and ices. Interrupts her sleep. Hasn't used cane or other device. Step-to pattern on stairs due to pain. Over past week has had some improvements but persists. Denies swelling from knee pain but did previously due to clot in knee x 2 . Now taking blood thinners. Denies clicking, popping, giving way. No current exercise program, reports I watch a lot of TV. Prior Treatments and Tests x-ray: negative for osseus abnormality. Future Testing and Treatments Planned return to doctor if PT not helpful. Treatment Goals Patient/Caregiver Goals minimize knee pain, be able to sleep without pain, be able to complete retirement work without an increase in pain PT-OP-C Subjective Start: 01/10/22 12:06 Freq: Status: Active Protocol: Document 02/24/22 08:18 SP (Rec: 02/24/22 09:08 SP [id number]) OP-PT Subjective Patient Comments Patient Comments Pt states BP high this am, took her BP meds at 7am. She was wanting feedback given for high BP but not srue safe to work hard in PT. Pt states family emergency has been causing stress and didnt' sleep mroe than 2 hrs last ngith and possible a contributer. PT-OP-E Functional Tests Start: 01/10/22 12:06 Freq: Status: Active Protocol: Document 02/09/22 09:50 SP (Rec: 02/09/22 10:33 SP [id number]) Functional Tests Five Times Sit to Stand Test Score 17sec Comments arm across chest, white folding chair painfree PT-OP-G Mobility & Gait Start: 01/10/22 12:06 Freq: Status: Active Protocol: Document 01/11/22 09:06 SAK (Rec: 01/11/22 20:14 SAK [id number]) OP Mobility Evaluation Transfers Sit to Stand indep, decreased weightpbearing through right LE, uses hands Functional Movements Squats painful OP Gait Assessment Gait Gait Assistance Required: Independent Assistive Devices Assistive Device None Gait Deviations General Gait Pattern Decreased Stride Length, Decreased Feet Clearance Stair Climbing Evaluation Evaluation Level of Assist On Stairs Standby Assistance Devices Stair Climbing Assistive Devices Left Railing,Right Railing Technique/Endurance Stair Climbing Technique Step to Step PT-OP-H Neuro Start: 01/10/22 12:06 Freq: Status: Active Protocol: Document 01/11/22 09:06 SAK (Rec: 01/11/22 20:14 SAK [id number]) Sensation Evaluation Gross Sensation Gross Sensation WNL Comments Summary Comments denies N/T, giving way PT-OP-J Posture/Palpation/Skin Start: 01/10/22 12:06 Freq: Status: Active Protocol: Document 01/11/22 09:06 [facility] (Rec: 01/11/22 20:14 [facility] [id number]) Posture Evaluation Position Standing Knee Posture (R) Genu Varus,(R) Ext. Tibial Torsion Ankle/Foot Posture (R) Pronated,(R) Calcaneal Eversion,(R) Forefoot Eversion Palpation Assessment Location right knee Palpation Location medial joint line Palpation Findings Tenderness Skin Assessment Edema Assessment right knee Edema Type Non-Pitting Edema Degree 2+ PT-OP-K Range of Motion Start: 01/10/22 12:06 Freq: Status: Active Protocol: Document 02/24/22 08:18 SP (Rec: 02/24/22 09:08 SP [id number]) Knee Goniometric Range of Motion Knee Right Knee ROM WFL No Patient Position Supine Flexion Active (degrees) 128 Extension Active (degrees) 0 Comments Gained 6 deg flexion PT-OP-L Special Tests Start: 01/10/22 12:06 Freq: Status: Active Protocol: Document 01/11/22 09:06 [facility] (Rec: 01/11/22 20:14 [facility] [id number]) Special Tests Knee Special Tests Luke Test Test Results negative Patellar Grind Test Test Results negative Anterior Draw Test Results negative PT-OP-M Strength Start: 01/10/22 12:06 Freq: Status: Active Protocol: Document 01/11/22 09:06 SAK (Rec: 01/11/22 20:14 [facility] [id number]) Knee Strength Knee Manual Muscle Testing Right Flexion (S2) 4 Good Extension (L3) 4 Good Left Flexion (S2) 5 Normal Extension (L3) 4+ Good+ Ankle/Foot Strength Ankle and Foot Manual Muscle Testing Right Dorsiflexion (L4) 4 Good Plantarflexion (S1) 4 Good Inversion 4 Good Eversion (S1) 4 Good Left Dorsiflexion (L4) 4+ Good+ Plantarflexion (S1) 4+ Good+ Inversion 4+ Good+ Eversion (S1) 4+ Good+ PT-OP-Q Treatments Start: 01/10/22 12:06 Freq: Status: Active Protocol: Document 02/24/22 08:18 SP (Rec: 02/24/22 11:30 SP [id number]) Therapeutic Exercises Supine Exercises SLR Side right Resistance AROM Reps/Minutes 2x10 Comments cued quad set before lift, decrease lag Quad set Supine Exercise Name HEP reviewed Reps/Minutes 10x Comments cues for LE alignment Sitting Exercises STS Sitting Exercise Name chair squat/modified taps,not performed but discussed continue HEP Equipment Used arms across chest, folding chair Reps/Minutes 2x5 reps painfree, 5 STS Comments emphasis on pain-free range Standing Exercises band walk Standing Exercise Name added to HEP Resistance YTB Equipment Used contact rail safety stability support Reps/Minutes 15ft x3 laps Comments good feedback response, painfree, cued allow eccentric step, tall posture Self-Care/Home Management Treatment Education Patient Education Safety Other Education Pt ed on safety check BPs, call physican for safety awareness elevateion today. Added band walk today, good response and noted decrease BP with activty and pt stated felt better wtih activity. PT-OP-R Modalities Start: 01/10/22 12:06 Freq: Status: Active Protocol: Document 01/26/22 10:35 SAK (Rec: 01/26/22 12:00 SAK [id number]) Ultrasound Therapy Treatment medial right knee Treatment Duration (minutes) 8 Patient Position Hooklying Coupling Medium Ultrasound Gel Frequency Setting (mHz) 1 Mode Setting Continuous Duty Cycle 100% Intensity Setting (w/cm2) 1.2 Comments medial joint line PT-OP-T Assessment and Plan Start: 01/10/22 12:06 Freq: Status: Active Protocol: Document 02/24/22 08:18 SP (Rec: 02/24/22 09:08 SP [id number]) Physical Therapy Assessment Goals Three Impairment gait impairment, step-to pattern on stairs Residential Goal (LTG) patient able to ascend and descend stairs with alternating pattern and ambulate on level surface with minimal compensation to improve her function at home and in the community. 01/24/22: Goal met: has minimal lateral R lean antaglic during RLE WB painfree, noted bowed LE. able to ascend/ descend 4 stairs x2 sets receiprocal stepping, decreased stance time on R than L but painfree using R HR . LTG Duration 03/12/22 (01/24/22: GOAL MET) Two Impairment weakness right LE Short Term Goal (STG) Patient to be independent and compliant with HEP with purpose of strengthening right LE 01/30/22: pt compliant with HEP: SLR, heel slide, SAQ, side hip abd, seated HS curl increased to #2 TB, STS, step up/downs. 02/22/22: added hs and calf stretch, is also doing corner balance. 02/24/22: added band walk to HEP. Also does supine SAQ, qs, STS. STG Duration 02/10/22 (02/24/22: progressing) Residential Goal (LTG) Patient to demonstrate improved right LE strength to at least 4+/5 all muscle groups to improve her ability to do her usual activities LTG Duration 03/12/22 One Impairment pain right knee as high as 6/ 10 limiting activity tolerance and sleep Residential Goal (LTG) Decrease right knee pain to no greater than 2/10 with all usual activities and patient able to sleep without being wakened due to knee pain. 01/24/22: Progressing: not having paing waking her up at night, sleeping well. only rolling R medial knee assist 5 /10 pain every 2 days. 01/30/22: Progressing: no pain at night and not needing to use Tylenol, but when initially gets up feel like 89 y/o lady. She reports R knee pain 4-5/10 and balance not sturdy. 02/22/22: no pain night time. States pain less than 2/10 but not quantified but not consistant lately. LTG Duration 03/12/22 (progressing 02/22/22) Assessment Summary Assessment Pt states overall receiprocal stepping stairs discomfort but not usually now. Has been back to more normal activity, starting to do some walking outside when can, the little bit pain doesn't restrict her activity. Gained 5 deg R knee flexion AROM. Hypertensive BPs today concerned to add activity, pt keeping log like asked for safety per suggestion last tx and better self awareness, Low activity supine this tx 176/72 HR 58. Improved painfree feedback with activity wtih hurdles and added band walk, BP recovery 148/80 with activity. Pt to see PT next for PN and discuss if ready for DC and continue on own. Needs schedule 1-2 more appts with PT to allow PN and discuss further PT needed . Pt to call Dr Peralta and give feedback of BPs taken recently and if suggest further assessment. Suggested calling Dr Peralta for awareness inelevated BP and feedback suggesting. Physical Therapy Plan Frequency and Duration Frequency of Treatment 2x/Week Duration of Treatment 8 weeks Plan of Care Start Date 01/11/22 Plan of Care End Date 03/12/22 Therapeutic Interventions Therapeutic Interventions Aquatic Therapy,Gait Training, Home Exercise Program,Joint Mobilizations,Manual Therapy, Neuromuscular Re-education, Patient/Caregiver Education, Self-Care/Home Management,Soft Tissue Mobilization,Taping, Therapeutic Activities, Therapeutic Exercises Modalities Cold Pack/Ice Massage,Electric Stimulation,Hot Packs, Ultrasound Next Visit Focus/Plan Next Note Type Treatment Note Next Visit Plan Check vitals: BP. POC: Recheck HEP and Progress with ther ex for strengthening , balance, functional stenthening. Work on body mechanics for strengthening.
--- NOTE | 2022-02-27 15:44 | PT-OP ANOTE ---
DNS; spoke with patient by phone. She apologized for forgetting as her grandaughter just had a still and they are getting ready for [facility] this week. She is aware of next scheduled appointment 03/24/22 and is on waiting list if anything opens up sooner.
--- NOTE | 2022-03-24 08:15 | PT-OP ANOTE ---
Pt POC on 03/12. PROPAGATOR spoke with front services agent and requested call pt for need reschedule appt with PT for update POC and possible need new referral, Preferrably with PT [facility] if possible, inital evaling PT.
--- NOTE | 2022-04-03 10:24 | PT.OTN ---
Current Diagnoses Acute embolism and thrombosis of unspecified deep veins of unspecified lower extremity (04/03/22) Pain in right knee (04/03/22) Difficulty in walking, not elsewhere classified (04/03/22) Weakness (04/03/22) Physical Therapy Treatment Note PT-OP-A Visit Information Start: 01/10/22 12:06 Freq: Status: Active Protocol: Document 04/03/22 08:16 SAK (Rec: 04/03/22 09:03 [facility] [id number]) Out-Patient Physical Therapy Visit Information Visit Information Visit Type Treatment Note Visit Start Time 08:18 Visit Stop Time 09:00 Total Visit Minutes 42 Visit Number 12 Number of COMMISSARY ASSISTANT Visits 0 Precautions Precautions history of blood clots; on long-term anticoagulation, DM Type II, history DC PT-OP-B Current Condition Start: 01/10/22 12:06 Freq: Status: Active Protocol: Document 01/17/22 13:01 SAK (Rec: 01/17/22 13:48 SAK [id number]) Current Condition History of Current Condition Onset Date 6 months Current Complaints right knee pain History of Current Condition Right knee pain no known reason except patient thinks possibly due to [employer] 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 Typically ok when doing work, as soon as gets in car feels pain, goes home and ices. Interrupts her sleep. Hasn't used cane or other device. Step-to pattern on stairs due to pain. Over past week has had some improvements but persists. Denies swelling from knee pain but did previously due to clot in knee x 2 . Now taking blood thinners. Denies clicking, popping, giving way. No current exercise program, reports I watch a lot of TV. Prior Treatments and Tests x-ray: negative for osseus abnormality. Future Testing and Treatments Planned return to doctor if PT not helpful. 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 Hasn't felt the need for ice or heat recently. Good and bad days but overall so much improved. Will continue with HEP Patient Reported Progress Improving PT-OP-E Functional Tests Start: 01/10/22 12:06 Freq: Status: Active Protocol: Document 02/09/22 09:50 SP (Rec: 02/09/22 10:33 SP [id number]) Functional Tests Five Times Sit to Stand Test Score 17sec Comments arm across chest, white folding chair painfree PT-OP-G Mobility & Gait Start: 01/10/22 12:06 Freq: Status: Active Protocol: Document 01/11/22 09:06 SAK (Rec: 01/11/22 20:14 SAK [id number]) OP Mobility Evaluation Transfers Sit to Stand indep, decreased weightpbearing through right LE, uses hands Functional Movements Squats painful OP Gait Assessment Gait Gait Assistance Required: Independent Assistive Devices Assistive Device None Gait Deviations General Gait Pattern Decreased Stride Length, Decreased Feet Clearance Stair Climbing Evaluation Evaluation Level of Assist On Stairs Standby Assistance Devices Stair Climbing Assistive Devices Left Railing,Right Railing Technique/Endurance Stair Climbing Technique Step to Step PT-OP-H Neuro Start: 01/10/22 12:06 Freq: Status: Active Protocol: Document 01/11/22 09:06 SAK (Rec: 01/11/22 20:14 [facility] [id number]) Sensation Evaluation Gross Sensation Gross Sensation WNL Comments Summary Comments denies N/T, giving way PT-OP-J Posture/Palpation/Skin Start: 01/10/22 12:06 Freq: Status: Active Protocol: Document 01/11/22 09:06 SAK (Rec: 01/11/22 20:14 [facility] [id number]) Posture Evaluation Position Standing Knee Posture (R) Genu Varus,(R) Ext. Tibial Torsion Ankle/Foot Posture (R) Pronated,(R) Calcaneal Eversion,(R) Forefoot Eversion Palpation Assessment Location right knee Palpation Location medial joint line Palpation Findings Tenderness Skin Assessment Edema Assessment right knee Edema Type Non-Pitting Edema Degree 2+ PT-OP-K Range of Motion Start: 01/10/22 12:06 Freq: Status: Active Protocol: Document 02/24/22 08:18 SP (Rec: 02/24/22 09:08 SP [id number]) Knee Goniometric Range of Motion Knee Right Knee ROM WFL No Patient Position Supine Flexion Active (degrees) 128 Extension Active (degrees) 0 Comments Gained 6 deg flexion PT-OP-L Special Tests Start: 01/10/22 12:06 Freq: Status: Active Protocol: Document 01/11/22 09:06 [facility] (Rec: 01/11/22 20:14 [facility] [id number]) Special Tests Knee Special Tests Luke Test Test Results negative Patellar Grind Test Test Results negative Anterior Draw Test Results negative PT-OP-M Strength Start: 01/10/22 12:06 Freq: Status: Active Protocol: Document 01/11/22 09:06 [facility] (Rec: 01/11/22 20:14 [facility] [id number]) Knee Strength Knee Manual Muscle Testing Right Flexion (S2) 4 Good Extension (L3) 4 Good Left Flexion (S2) 5 Normal Extension (L3) 4+ Good+ Ankle/Foot Strength Ankle and Foot Manual Muscle Testing Right Dorsiflexion (L4) 4 Good Plantarflexion (S1) 4 Good Inversion 4 Good Eversion (S1) 4 Good Left Dorsiflexion (L4) 4+ Good+ Plantarflexion (S1) 4+ Good+ Inversion 4+ Good+ Eversion (S1) 4+ Good+ PT-OP-Q Treatments Start: 01/10/22 12:06 Freq: Status: Active Protocol: Document 04/03/22 08:16 [facility] (Rec: 04/03/22 09:03 [facility] [id number]) Cardio Equipment Recumbent Stepper (Sci-Fit) Duration (Minutes) 11 Resistance 2-2.5 Seat Position 10 Other UEs & LEs first 6 min, LE's only last 5 min , RPM , 1.10 miles Therapeutic Exercises Supine Exercises hip abduction/ER Resistance L3 TB Reps/Minutes 10x bridge Supine Exercise Name HEP review Reps/Minutes 10x Comments cues for core and gluteal activation, no pushing with arms, hold 5 SAQ Supine Exercise Name reviewed HEP Side right Equipment Used rectangular bolster (suggested new paper towel roll w/ towel rolled around) Reps/Minutes 10x Comments verbal cues for alignment- painfree- quad fac SLR Side right Resistance AROM Reps/Minutes 2x10 Comments cued quad set before lift, decrease lag Sidelying Exercises hip abduction Sidelying Exercise Name yoga mat on treatment table for comfort Side bilateral Reps/Minutes 10x Comments min cues Sitting Exercises STS Sitting Exercise Name chair squat/modified taps,not performed but discussed continue HEP Equipment Used arms across chest, folding chair Reps/Minutes 2x5 reps painfree, 5 STS Comments emphasis on pain-free range hamstring curl Sitting Exercise Name reviewed HEP Side bilateral Resistance #2 TB Equipment Used white folding chair Reps/Minutes 2x15 Comments good form, painfree- cued use tong/ assistant laboratory director for don ankle. Standing Exercises band walk Resistance YTB Equipment Used contact rail safety stability support Reps/Minutes 15ft x3 laps Comments good feedback response, painfree, cued allow eccentric step, tall posture HS stretch Standing Exercise Name added to HEP if needed Side right Resistance stand contact rail (street sign discussed) vs seated Equipment Used prop LE on 2nd step, hip hinge Reps/Minutes 30 x2 Comments good understanding and stretch PT-OP-R Modalities Start: 01/10/22 12:06 Freq: Status: Active Protocol: Document 01/26/22 10:35 [facility] (Rec: 01/26/22 12:00 [facility] [id number]) Ultrasound Therapy Treatment medial right knee Treatment Duration (minutes) 8 Patient Position Hooklying Coupling Medium Ultrasound Gel Frequency Setting (mHz) 1 Mode Setting Continuous Duty Cycle 100% Intensity Setting (w/cm2) 1.2 Comments medial joint line PT-OP-T Assessment and Plan Start: 01/10/22 12:06 Freq: Status: Active Protocol: Document 04/03/22 08:16 [facility] (Rec: 04/03/22 09:03 [facility] [id number]) Physical Therapy Assessment Goals Three Impairment gait impairment, step-to pattern on stairs Custodial Goal (LTG) patient able to ascend and descend stairs with alternating pattern and ambulate on level surface with minimal compensation to improve her function at home and in the community. 01/24/22: Goal met: has minimal lateral R lean antaglic during RLE WB painfree, noted bowed LE. able to ascend/ descend 4 stairs x2 sets receiprocal stepping, decreased stance time on R than L but painfree using R HR . LTG Duration GOAL MET) Two Impairment weakness right LE Short Term Goal (STG) Patient to be independent and compliant with HEP with purpose of strengthening right LE 01/30/22: pt compliant with HEP: SLR, heel slide, SAQ, side hip abd, seated HS curl increased to #2 TB, STS, step up/downs. 02/22/22: added hs and calf stretch, is also doing corner balance. 02/24/22: added band walk to HEP. Also does supine SAQ, qs, STS. 04/03/22: goal met STG Duration goal met Nail Machine Operator Goal (LTG) Patient to demonstrate improved right LE strength to at least 4+/5 all muscle groups to improve her ability to do her usual activities LTG Duration goal met One Impairment pain right knee as high as 6/ 10 limiting activity tolerance and sleep Nail Machine Operator Goal (LTG) Decrease right knee pain to no greater than 2/10 with all usual activities and patient able to sleep without being wakened due to knee pain. 01/24/22: Progressing: not having paing waking her up at night, sleeping well. only rolling R medial knee assist 5 /10 pain every 2 days. 01/30/22: Progressing: no pain at night and not needing to use Tylenol, but when initially gets up feel like 89 y/o lady. She reports R knee pain 4-5/10 and balance not sturdy. 02/22/22: no pain night time. States pain less than 2/10 but not quantified but not consistant lately. 04/03/22: goal met 1/10 LTG Duration goal met Assessment Summary Assessment Excellent progress, patient highly compliant with HEP, updated written HEP today for patient. She will be discharged from PT. Physical Therapy Plan Frequency and Duration Frequency of Treatment 1 visit Duration of Treatment 1 week Plan of Care Start Date 04/03/22 Plan of Care End Date 04/10/22 Therapeutic Interventions Therapeutic Interventions Gait Training,Home Exercise Program,Manual Therapy,Patient /Caregiver Education,Self-Care /Home Management Modalities Cold Pack/Ice Massage,Hot Packs Next Visit Focus/Plan Next Note Type Discharge Summary Next Visit Plan Today is last PT visit for patient as she has met all PT goals.
--- NOTE | 2022-04-03 10:24 | PT.OPPOC ---
Physical, Occupational & Speech Therapy At [facility] Current Diagnoses Acute embolism and thrombosis of unspecified deep veins of unspecified lower extremity (04/03/22) Pain in right knee (04/03/22) Difficulty in walking, not elsewhere classified (04/03/22) Weakness (04/03/22) Visit Care Team Role Provider Type Janna Peralta MD Attending Provider Physician Family Provider Primary Care Provider Referring Provider Specialty: Family Practice Address: [address] [place] [address], [place], [place], [facility] Email: [email or web address] Plan Of Care PT-OP-T Assessment and Plan Start: 01/10/22 12:06 Freq: Status: Active Protocol: Document 04/03/22 08:16 JOS[facility] (Rec: 04/03/22 09:03 SAK [id number]) Physical Therapy Assessment Goals Three Impairment gait impairment, step-to pattern on stairs Signal Supervisor Goal (LTG) patient able to ascend and descend stairs with alternating pattern and ambulate on level surface with minimal compensation to improve her function at home and in the community. 01/24/22: Goal met: has minimal lateral R lean antaglic during RLE WB painfree, noted bowed LE. able to ascend/ descend 4 stairs x2 sets receiprocal stepping, decreased stance time on R than L but painfree using R HR . LTG Duration GOAL MET) Two Impairment weakness right LE Short Term Goal (STG) Patient to be independent and compliant with HEP with purpose of strengthening right LE 01/30/22: pt compliant with HEP: SLR, heel slide, SAQ, side hip abd, seated HS curl increased to #2 TB, STS, step up/downs. 02/22/22: added hs and calf stretch, is also doing corner balance. 02/24/22: added band walk to HEP. Also does supine SAQ, qs, STS. 04/03/22: goal met STG Duration goal met Correction Goal (LTG) Patient to demonstrate improved right LE strength to at least 4+/5 all muscle groups to improve her ability to do her usual activities LTG Duration goal met One Impairment pain right knee as high as 6/ 10 limiting activity tolerance and sleep Signal Supervisor Goal (LTG) Decrease right knee pain to no greater than 2/10 with all usual activities and patient able to sleep without being wakened due to knee pain. 01/24/22: Progressing: not having paing waking her up at night, sleeping well. only rolling R medial knee assist 5 /10 pain every 2 days. 01/30/22: Progressing: no pain at night and not needing to use Tylenol, but when initially gets up feel like 89 y/o lady. She reports R knee pain 4-5/10 and balance not sturdy. 02/22/22: no pain night time. States pain less than 2/10 but not quantified but not consistant lately. 04/03/22: goal met 1/10 LTG Duration goal met Assessment Summary Assessment Excellent progress, patient highly compliant with HEP, updated written HEP today for patient. She will be discharged from PT. Physical Therapy Plan Frequency and Duration Frequency of Treatment 1 visit Duration of Treatment 1 week Plan of Care Start Date 04/03/22 Plan of Care End Date 04/10/22 Therapeutic Interventions Therapeutic Interventions Gait Training,Home Exercise Program,Manual Therapy,Patient /Caregiver Education,Self-Care /Home Management Modalities Cold Pack/Ice Massage,Hot Packs Next Visit Focus/Plan Next Note Type Discharge Summary Next Visit Plan Today is last PT visit for patient as she has met all PT goals. Plan of Care Dates Plan of Care Start Date 04/03/22 Plan of Care End Date 04/10/22 Electronically Signed by: Alix Wynne, PT 04/03/22 1024 If you are in agreement with this Plan of Care, please return a signed and dated copy. I have reviewed this Plan of Care and certify that the skilled therapy services above are required to meet the patient?s needs. Physician Signature Date Printed Name and Credentials Clinical Instructor Signature Printed Name and Credentials
== END 2022-04-05 13:20 ==
LOC: PHYS 08:15
PROVIDERS: Family Provider Family Medicine; PCP Family Medicine; Referring Provider Family Medicine; Visit Provider Family Medicine
DX: M25.561 Pain in right knee (principal); I82.409 Acute embolism and thrombosis of unspecified deep veins of unspecified lower extremity; R26.2 Difficulty in walking, not elsewhere classified; R53.1 Weakness
CPT/HCPCS: 97010; 97035; 97110; 97112; 97162; 97535

== ENCOUNTER → 2022-05-23 08:22 | Outpatient (CLI) | payer MEDICARE, SELFPAY ==
[2021-02-02 05:26] VITALS: BMI 33.3
[2022-05-23 09:59] LABS: Hemoglobin A1C% w Est Avg Glu 6.2 % (4.0-6.0)
== END ==
PROVIDERS: Family Provider Family Medicine; PCP Family Medicine; Referring Provider Family Medicine; Visit Provider Family Medicine
DX: E11.9 Type 2 diabetes mellitus without complications (principal)
CPT/HCPCS: 36415; 83036

== ENCOUNTER 2022-05-30 02:44 | Emergency (ER) | payer MEDICARE, SELFPAY ==
[2021-02-02 05:26] VITALS: BMI 33.3
[2022-05-30] VITALS (13 sets, daily range): BP systolic 156–187; BP diastolic 76–115; PULSE 47–57; RESP 16–24; TEMP 36.4; O2SAT 94–98; BMI 32.1
--- NOTE | 2022-05-30 03:19 | DI.RAD.S_ITS ---
PROCEDURE: XR CHEST 1V INDICATIONS: chest pain TECHNIQUE: One view of the chest was acquired. COMPARISON: [facility], CR, XR CHEST 1V, 02/01/2021, 23:51. FINDINGS: Surgical changes and devices: None. Lungs and pleura: Lungs are clear. No pleural effusions or pneumothorax. Mediastinum: Mediastinal contours appear normal. Heart size is normal. Bones and chest wall: No suspicious bony lesions. Overlying soft tissues appear unremarkable. IMPRESSION: No acute cardiopulmonary disease process. Dictated by: Shanel Oconnell MD, PhD on 05/30/2022 at 8:54 Approved by: Shanel Oconnell MD, PhD on 05/30/2022 at 8:55
--- NOTE | 2022-05-30 03:28 | ED.CHESTPAIN ---
HPI - Chest Pain General Chief Complaint: Chest Pain Stated Complaint: PAIN IN LEFT SIDE Time Seen by Provider: 05/30/22 03:04 Source: patient Mode of arrival: Ambulatory History of Present Illness HPI narrative: 76-year-old female nonsmoker with history of coronary artery disease, hypertension, hyperlipidemia, prior pulmonary emboli presents with a chief complaint of about 1 week's worth of left side pain including her mid and upper back, posterior shoulder, left side of chest and flank. She states her symptoms seem to be worse when she lays flat or if she uses her left arm. She denies any numbness, tingling or weakness. She denies any overuse or specific injuries. She denies other cardiac equivalent such as dizziness, weakness or lightheadedness. She has no nausea or vomiting. She denies any exertional symptoms, change in medications or change in diet. She is had no recent travel or lower extremity pain or swelling. She states that she has not missed any doses of her blood thinners Related Data Home Medications Medication Instructions Recorded Confirmed atorvastatin 80 mg tablet (Lipitor) 80 mg PO QDAY ##0 05/08/11 05/16/22 aspirin 81 mg tablet,delayed 81 mg PO DAILY 07/21/21 05/16/22 release (Adult Aspirin Regimen) Previous Rx's Medication Instructions Recorded lisinopril 20 mg tablet 20 mg PO DAILY #90 tabs 09/07/21 metoprolol tartrate 25 mg tablet 50 mg PO BID #120 tabs 11/22/21 rivaroxaban 20 mg tablet (Xarelto) 20 mg PO DAILY #90 tabs 12/02/21 cyclobenzaprine 10 mg tablet 10 mg PO TID PRN muscle spasm #20 05/30/22 tabs Allergies Allergy/AdvReac Type Severity Reaction Status Date / Time No Known Drug Allergies Allergy Verified 05/16/22 09:08 Review of Systems Review of Systems Narrative: GENERAL: Denies chills, fatigue, malaise, fever, sweats. HEENT: Denies sinus pain, ear pain, sore throat, difficulty swallowing, dizziness. RESPIRATORY: Denies dyspnea, cough, wheezing, hemoptysis, sputum. CARDIOVASCULAR: See HPI GASTROINTESTINAL: Denies nausea, vomiting, abdominal pain, diarrhea, constipation, melena. : Denies dysuria, frequency, incontinence, hematuria, urinary retention. MUSCULOSKELETAL: See HPI SKIN: Denies rash, skin lesions, or other NEUROLOGIC: Denies weakness, headache, numbness, change in speech, confusion, seizures, incoordination. PSYCHIATRIC: No concerning psychosocial issues. 12 point review of systems is negative except for those stated above Patient History Medical History Coronary artery disease Depression Diabetes type 2, controlled Essential hypertension History of myocardial infarction Mixed hyperlipidemia Pre-diabetes Ureteropelvic junction (UPJ) obstruction, right Family History Daughter Hyperlipidemia Social History marital status: number of children: 2 household members: family occupational status: previously employed Smoking Status: Never smoker alcohol intake: never caffeine: No Smoking Status: Never smoker alcohol intake frequency: 0-2 drinks per day Substance Use Type: does not use Exam Narrative Exam Narrative: GENERAL: [76] year old patient appears stated age. Well-developed patient, in mild distress. HEAD: Atraumatic. Normocephalic. EYES: Pupils equal round and reactive. Extraocular motions intact. No scleral icterus. No injection or drainage. ENT: Nose without bleeding, purulent drainage. Throat without erythema, tonsillar hypertrophy or exudate. Airway patent. NECK: Trachea midline. Non tender CARDIOVASCULAR: Regular rate and rhythm without murmurs, gallops, or rubs. RESPIRATORY: Clear to auscultation. Breath sounds equal bilaterally. No wheezes, rales, or rhonchi. GASTROINTESTINAL: Abdomen soft, non-tender, nondistended. EXTREMITIES: No edema or joint tenderness. BACK: Nontender without deformity or crepitance. No flank tenderness. NEURO: AOx3. SKIN: No rash or erythema of visible areas Initial Vital Signs Initial Vital Signs: Vital Signs Temperature 97.6 F 05/30/22 03:14 Pulse Rate 57 L 05/30/22 03:14 Respiratory Rate 18 05/30/22 03:14 Blood Pressure 156/77 H 05/30/22 03:14 Pulse Oximetry 97 05/30/22 03:14 Oxygen Delivery Method 05/30/22 03:14 Course Orders Ordered: Discontinued Medications Cyclobenzaprine HCl (Cyclobenzaprine 10 Mg Prepack) 1 bottle MISC SEEINSTR ONE Stop: 05/30/22 07:23 Last Admin: 05/30/22 07:37 Dose: 1 bottle Documented By: BERHANE Vital Signs Vital signs: Vital Signs - 8 hr 05/30/22 03:14 Temperature 97.6 F Pulse Rate 57 L Respiratory Rate 18 Blood Pressure 156/77 H Pulse Oximetry 97 Oxygen Delivery Method Room Air MDM - Chest Pain Lab Data Result diagrams: 05/30/22 04:02 05/30/22 04:02 Labs: Lab Results 05/30/22 05/30/22 05/30/22 Range/Units 04:02 04:02 06:20 WBC 6.1 (4.5-11.0) X10^3/uL RBC 4.19 (4.0-5.2) X10^6/uL Hgb 12.8 (12.0-16.0) g/dL Hct 38.0 (36-46) % MCV 90.8 (80-100) fL MCH 30.6 (26-34) PG MCHC 33.7 (30-36) % RDW 13.8 (11.6-14.8) % Plt Count 226 (150-400) X10^3/uL Neut % (Auto) 64.4 (50-75) % Lymph % (Auto) 26.5 (25-40) % [place] % (Auto) 5.9 (3-14) % Eos % (Auto) 2.7 (2-4) % Baso % (Auto) 0.5 (0-2) % Neut # (Auto) 3900 (2439-5137) /uL Lymph # (Auto) 1600 (8575-6116) /uL [place] # (Auto) 400 (0-900) /uL Eos # (Auto) 200 (0-450) /uL Baso # (Auto) 0 (0-100) /uL Sodium 140 (137-145) mmol/L Potassium 5.0 (3.4-5.1) mmol/L Chloride 107 (98-107) mmol/L Carbon Dioxide 25 (22-32) mmol/L BUN 32 H (7-17) mg/dL Creatinine 0.88 (0.52-1.04) mg/dL Estimated GFR > 60 (>60) mL/min BUN/Creatinine Ratio 36.4 H (6-22) Glucose 146 H (80-110) mg/dL Calcium 9.3 (8.4-10.2) mg/dL Magnesium 1.9 (1.6-2.3) mg/dL Total Bilirubin 1.0 (0.2-1.3) mg/dL AST 25 (14-36) IU/L ALT 18 (<35) IU/L Alkaline Phosphatase 77 (38-126) U/L Total Creatine Kinase 121 119 (30-135) U/L CK-MB (CK-2) 0.71 0.69 (<2.37) ng/mL CK-MB (CK-2) Rel Index 0.6 L 0.6 L (1.5-5.0) % Troponin I < 0.012 < 0.012 (0.01-0.034) ng/mL Total Protein 7.2 (6.3-8.2) g/dL Albumin 4.2 (3.5-5.0) g/dL Globulin 3.0 (1.7-4.1) g/dL Albumin/Globulin Ratio 1.4 (1.0-2.8) Lipase 259 (23-300) U/L Discharge Plan Departure Patient Disposition: Home Clinical Impression: Acute thoracic back pain Instructions: Thoracic Back Pain Activity Restrictions/Additional Instructions: *You have been diagnosed with [acute on chronic left-sided thoracic pain. As we discussed your history and physical are very reassuring as are the EKGs, lab work and imaging. There is no evidence of heart attack, collapsed lung, bowel obstruction or other significant diagnosis that would require immediate and specific intervention] *What to do: *Please continue to take your regular medications as directed. [ x] New medication prescriptions sent to your pharmacy: [ [facility]] [ ] New medication written as a paper prescription [ ] No new medications given *Please follow up with your primary care provider in 2-3 days, call for an appointment. Let them know you were seen in the Emergency Department and that we ask that you be seen in follow up. We will electronically transmit a record of today's note if your PCP is in our system *If you do not have a primary care provider please contact the [facility] Resource line at [phone]. They will ask some questions about your medical history and help get you set up with a doctor in the community. *Return to Emergency Department if you should have any new, worsening or concerning symptoms, such as [fever greater than 101 F, shaking chills, worsening pain, persistent vomiting or other bothersome symptoms] Prescriptions: New cyclobenzaprine 10 mg tablet 10 mg PO TID PRN (Reason: muscle spasm) Qty: 20 0RF No Action lisinopril 20 mg tablet 20 mg PO DAILY Qty: 90 3RF Xarelto 20 mg tablet 20 mg PO DAILY Qty: 90 2RF Rx Instructions: must administer with evening meal atorvastatin [Lipitor] 80 MG tablet 80 mg PO QDAY Qty: 0 aspirin [Adult Aspirin Regimen] 81 mg tablet,delayed release (DR/EC) 81 mg PO DAILY metoprolol tartrate 25 mg tablet 50 mg PO BID Qty: 120 5RF Referrals: Janna Peralta MD [Primary Care Provider] - Visit Report Forms: Patient Portal/API
[2022-05-30 04:27] LABS: Add Manual Diff / Slide Review NO; Basophils Absolute Auto 0 /uL (0-100); Basophils Percent Auto 0.5 % (0-2); Eosinophils Absolute Auto 200 /uL (0-450); Eosinophils Percent Auto 2.7 % (2-4); Hemoglobin 12.8 g/dL (12.0-16.0); Lymphocytes Absolute Auto 1600 /uL (1100-4500); Lymphocytes Percent Auto 26.5 % (25-40); Mean Corpuscular HGB Conc 33.7 % (30-36); Mean Corpuscular Hemoglobin 30.6 PG (26-34); Mean Corpuscular Volume 90.8 fL (80-100); Monocytes Absolute Auto 400 /uL (0-900); Monocytes Percent Auto 5.9 % (3-14); Neutrophils Absolute Auto 3900 /uL (1500-7000); Neutrophils Percent Auto 64.4 % (50-75); Platelet Count 226 X10^3/uL (150-400); Red Blood Cell Count 4.19 X10^6/uL (4.0-5.2); Red Cell Distribution Width 13.8 % (11.6-14.8); White Blood Cell Count 6.1 X10^3/uL (4.5-11.0)
[2022-05-30 04:32] LABS: Alanine Aminotransferase 18 IU/L (<35); Albumin 4.2 g/dL (3.5-5.0); Albumin Globulin Ratio 1.4 (1.0-2.8); Alkaline Phosphatase 77 U/L (38-126); Aspartate Aminotransferase 25 IU/L (14-36); BUN Creatinine Ratio 36.4 (6-22); Blood Urea Nitrogen 32 mg/dL (7-17); Calcium 9.3 mg/dL (8.4-10.2); Carbon Dioxide 25 mmol/L (22-32); Chloride 107 mmol/L (98-107); Creatine Kinase 121 U/L (30-135); Estimated Glomerular Filt Rate > 60 mL/min (>60); Glucose 146 mg/dL (80-110); HEMOLYSIS 19 (0-50); Lipase 259 U/L (23-300); Magnesium 1.9 mg/dL (1.6-2.3); Sodium 140 mmol/L (137-145); Total Protein 7.2 g/dL (6.3-8.2)
[2022-05-30 04:44] LABS: Troponin I < 0.012 ng/mL (0.01-0.034)
[2022-05-30 04:47] LABS: CKMB % Relative Index 0.6 % (1.5-5.0); Creatine Kinase MB 0.71 ng/mL (<2.37)
--- NOTE | 2022-05-30 05:23 | PC.NURSE ---
PIV placement attempted x 4 by two different RN's without success. Dr Dent notified.
--- NOTE | 2022-05-30 05:39 | DI.CT.S_ITS ---
PROCEDURE: CT KIDNEY URETER BLADDER (KUB) INDICATIONS: left flank pain TECHNIQUE: Axial sections were acquired from the lung bases to the pubic symphysis. Coronal and sagittal reformats were performed. For radiation dose reduction, the following was used: automated exposure control, adjustment of mA and/or kV according to patient size. COMPARISON: None. FINDINGS: Image quality: Excellent. Lung bases: Atelectasis. Right base granuloma. Heart: No significant findings. URINARY: Left kidney is within normal limits. No hydronephrosis or renal calculi. Moderate right pelvicaliectasis with normal diameter ureter. No hydronephrosis or renal calculi. These findings are similar compared to 10/24/2028. Bladder without stones. ABDOMEN: Liver: Unremarkable. Gallbladder: Unremarkable Biliary ducts: Unremarkable. Pancreas: Unremarkable. Spleen: Unremarkable. Adrenal Glands: Unremarkable. Stomach and Bowel: Moderate hiatal hernia. Colonic diverticula. Peritoneum: No abnormal intraperitoneal fluid. No free air. Ventral Wall: Small fat containing umbilical hernia. Abdominal Nodes: No enlarged retroperitoneal or mesenteric lymph nodes. Vessels: Mild atherosclerotic calcifications. PELVIS: Pelvic Organs: Unremarkable. Pelvic Nodes: Unremarkable. Miscellaneous: Small fat containing inguinal hernias. Bones: Lumbosacral spondylosis. No suspicious osseous lesion. IMPRESSION: Moderate right pelvicaliectasis with normal diameter ureter, also seen in September 2020 suggestive of chronic UPJ obstruction. No hydronephrosis or renal calculi bilaterally. No acute abdominopelvic pathology otherwise. Moderate hiatal hernia. Agree with preliminary report. Dictated by: Tashi Bashir M.D. on 05/30/2022 at 7:47 Approved by: Tashi Bashir M.D. on 05/30/2022 at 7:54
[2022-05-30 06:45] LABS: Creatine Kinase 119 U/L (30-135)
[2022-05-30 06:58] LABS: Troponin I < 0.012 ng/mL (0.01-0.034)
[2022-05-30 07:01] LABS: CKMB % Relative Index 0.6 % (1.5-5.0); Creatine Kinase MB 0.69 ng/mL (<2.37)
[2022-05-30] MEDS: CYCLOBENZAPRINE 10 MG PREPACK 1 BOTTLE MISC (07:37)
== END 2022-05-30 07:43 | disposition home or self-care (01) ==
PROVIDERS: Emergency Provider Emergency Medicine; Family Provider Family Medicine; PCP Family Medicine
DX: M54.6 Pain in thoracic spine (principal); R07.9 Chest pain, unspecified
CPT/HCPCS: 36415; 71045; 74176; 80053; 82550; 82553; 83690; 83735; 84484; 85025; 93005; 99284

== ENCOUNTER → 2022-08-12 09:34 | Outpatient (CLI) | payer MEDICARE, SELFPAY ==
[2021-02-02 05:26] VITALS: BMI 33.3
== END ==
PROVIDERS: Family Provider Family Medicine; PCP Family Medicine; Referring Provider Family Medicine; Visit Provider Family Medicine
DX: E11.9 Type 2 diabetes mellitus without complications (principal)
CPT/HCPCS: 36415; 83036

== ENCOUNTER → 2023-02-13 10:42 | Outpatient (CLI) | payer MEDICARE, SELFPAY ==
[2021-02-02 05:26] VITALS: BMI 33.3
[2023-02-13 11:41] LABS: Albumin 4.2 g/dL (3.5-5.0); Albumin Globulin Ratio 1.2 (1.0-2.8); Alkaline Phosphatase 99 U/L (38-126); Aspartate Aminotransferase 25 IU/L (14-36); BUN Creatinine Ratio 17.9 (6-22); Bilirubin Total 1.4 mg/dL (0.2-1.3); Blood Urea Nitrogen 14 mg/dL (7-17); Calcium 9.4 mg/dL (8.4-10.2); Carbon Dioxide 28 mmol/L (22-32); Chloride 104 mmol/L (98-107); Estimated Glomerular Filt Rate > 60 mL/min (>60); Globulin 3.4 g/dL (1.7-4.1); Glucose 114 mg/dL (80-110); HEMOLYSIS < 15 (0-50); Sodium 139 mmol/L (137-145); Total Protein 7.6 g/dL (6.3-8.2)
[2023-02-13 11:46] LABS: Alanine Aminotransferase 18 IU/L (<35); Potassium 4.4 mmol/L (3.4-5.1)
[2023-02-13 11:47] LABS: NT-proBNP (BNP-Adult 18+) 922 pg/mL (<450)
[2023-02-14 03:10] LABS: Labcorp Hemoglobin (Hb) A1c 6.2 % (4.8-5.6)
== END ==
PROVIDERS: Family Provider Family Medicine; PCP Family Medicine; Referring Provider Family Medicine; Visit Provider Family Medicine
DX: R60.0 Localized edema (principal)
CPT/HCPCS: 36415; 80053; 83036; 83880

== ENCOUNTER → 2023-03-05 06:47 | Outpatient (CLI) | payer MEDICARE, SELFPAY ==
[2021-02-02 05:26] VITALS: BMI 33.3
--- NOTE | 2023-03-05 06:49 | DI.ECHO.S_ITS ---
[facility] +---------+ : : [address] : : : : [id number] : : : : Phone: [phone] Echocardiogram Report + + :Name: DOMINIQUE KITCHEN Study Date: 03/05/2023 Height: 64 in : [facility] ReadingLocation: Weight: 192 lb : : Gender: Female BSA: 1.9 m2 : :: 1945 Age: 77 yrs BP: 134/68 mmHg: :Reason For Study: LEFT LEG EDEMA HR: 56 : :Ordering Physician: JOHN, : :ARETHA Performed By: AFSHAN PORTER : :Referring: ARETHA LOPEZ : + + Interpretation Summary The ejection fraction is estimated to be 60-65%. There is mild aortic valve sclerosis. There is mild tricuspid regurgitation. The right ventricular systolic pressure is estimated to be at least 30 mmHg based on an estimated right atrial pressure of 3 mm Hg. Compared to the prior echo exam, there has been a decrease in the severity of pulmonary hypertension. Procedure: A two-dimensional transthoracic echocardiogram with color flow and Doppler was performed. The study quality was technically adequate. Comparison is made with the echocardiogram of 02/03/2021. The patient was in normal sinus rhythm during the exam. Left Ventricle: The left ventricle is normal in size and wall thickness. Left ventricular systolic function is normal. The ejection fraction is estimated to be 60-65%. There has been no significant change since the previous exam. Left ventricular wall motion is normal. Right Ventricle: The right ventricle is normal in size and function. Atria: Both atria are normal in size. There is no Doppler evidence for an interatrial shunt. Mitral Valve: The mitral valve is normal in structure and function. There is no mitral regurgitation. Aortic Valve: The aortic valve is trileaflet. The aortic valve opens well. The aortic valve is mildly calcified. There is mild aortic valve sclerosis. There is no aortic valve stenosis. No aortic regurgitation is present. Tricuspid Valve: The tricuspid valve is normal in structure and function. There is mild tricuspid regurgitation. The right ventricular systolic pressure is estimated to be at least 30 mmHg based on an estimated right atrial pressure of 3 mm Hg. Compared to the prior echo exam, there has been a decrease in the severity of pulmonary hypertension. Pulmonic Valve: The pulmonic valve leaflets are thin and pliable; valve motion is normal. There is no pulmonic valvular regurgitation. Great Vessels: The aortic root is normal size. The ascending aorta is normal in size. The IVC is of normal diameter and collapses greater than 50% with a sniff. This suggests a low right atrial pressure of 3 mm Hg. Pericardium/ Pleura There is no pericardial effusion. There is no pleural effusion. MMode/2D Measurements & Calculations LVIDd: 3.5 cm LVOT diam: 1.9 cm LVIDs: 2.0 cm Ao root diam: 3.3 cm FS: 42.9 % asc Aorta Diam: 3.4 cm IVSd: 1.0 cm LVPWd: 1.0 cm LV nowak. diameter/BSA (cm/m^2): 1.8 LV sys. diameter/BSA (cm/m^2): 1.0 LA A2 area: 16.4 cm2 RA long axis: 4.4 cm LA A4 area: 15.0 cm2 LA length (vol): 5.6 cm LA vol: 37.4 ml LA vol index: 19.4 ml/m2 LVLs ap4: 6.0 cm LVLd ap2: 7.5 cm LVLs ap2: 6.2 cm TAPSE_phl: 1.9 cm Doppler Measurements & Calculations Ao V2 max: 142.0 cm/sec LVOT Max Shravan: 113.0 cm/sec Ao V2 mean: 107.0 cm/sec LV V1 max P.1 mmHg Ao max P.1 mmHg LV V1 VTI: 27.6 cm Ao mean P.0 mmHg CHASE(I,D): 2.3 cm2 Ao V2 VTI: 34.2 cm CHASE(V,D): 2.3 cm2 sev ratio: 0.81 CHASE indexed to BSA (cm^2/m^2): 1.2 MV E max shravan: 49.3 cm/sec TR max shravan: 258.0 cm/sec MV A max shravan: 89.5 cm/sec TR max P.6 mmHg MV E/A: 0.55 PA V2 max: 112.0 cm/sec Med Peak E' Shravan: 6.3 cm/sec PA V2 mean: 74.1 cm/sec E/E' med: 7.8 PA mean P.0 mmHg Lat Peak E' Shravan: 8.5 cm/sec PA pr(Accel): 42.5 mmHg E/E' lat: 5.8 E/e' average: 6.8 MV dec time: 0.38 sec SV(LVOT): 78.3 ml AV VR_phl: 0.80 CHASE(VTI)/BSA_phl: 1.2 MV P1/2t-pr_phl: 110.0 msec Reading Physician:09:36 AM
== END ==
PROVIDERS: Family Provider Family Medicine; PCP Family Medicine; Referring Provider Family Medicine; Visit Provider Family Medicine
DX: R60.0 Localized edema (principal); I08.2 Rheumatic disorders of both aortic and tricuspid valves
CPT/HCPCS: C8929; Q9957

== ENCOUNTER → 2023-06-25 11:36 | Outpatient (CLI) | payer MEDICARE, SELFPAY ==
[2021-02-02 05:26] VITALS: BMI 33.3
[2023-06-25 13:31] LABS: BUN Creatinine Ratio 37.5 (6-22); Blood Urea Nitrogen 48 mg/dL (7-17); Calcium 9.6 mg/dL (8.4-10.2); Carbon Dioxide 23 mmol/L (22-32); Chloride 108 mmol/L (98-107); Estimated Glomerular Filt Rate 43 mL/min (>60); Glucose 98 mg/dL (80-110); HEMOLYSIS 17 (0-50); Sodium 140 mmol/L (137-145)
[2023-06-25 14:06] LABS: Creatinine Urine Random 173.5 mg/dL
[2023-06-25 14:13] LABS: Microalbumi Creatinin Ratio Ur 5.7 ug/mg CR (<30)
== END ==
PROVIDERS: Family Provider Family Medicine; PCP Family Medicine; Referring Provider Family Medicine; Visit Provider Family Medicine
DX: R60.0 Localized edema (principal); E11.9 Type 2 diabetes mellitus without complications; I10 Essential (primary) hypertension
CPT/HCPCS: 36415; 80048; 82043; 82570

== ENCOUNTER → 2023-07-10 08:50 | Outpatient (CLI) | payer MEDICARE, SELFPAY ==
[2021-02-02 05:26] VITALS: BMI 33.3
[2023-07-10 10:26] LABS: Hemoglobin A1C% w Est Avg Glu 5.7 % (4.0-6.0)
[2023-07-10 10:43] LABS: Alanine Aminotransferase 24 IU/L (<35); Albumin 4.1 g/dL (3.5-5.0); Albumin Globulin Ratio 1.4 (1.0-2.8); Alkaline Phosphatase 71 U/L (38-126); Aspartate Aminotransferase 30 IU/L (14-36); BUN Creatinine Ratio 26.4 (6-22); Bilirubin Total 1.1 mg/dL (0.2-1.3); Blood Urea Nitrogen 29 mg/dL (7-17); Calcium 9.3 mg/dL (8.4-10.2); Carbon Dioxide 22 mmol/L (22-32); Chloride 109 mmol/L (98-107); Cholesterol 138 mg/dL (140-199); Estimated Glomerular Filt Rate 51 mL/min (>60); Globulin 2.9 g/dL (1.7-4.1); Glucose 102 mg/dL (80-110); HDL Cholesterol 59 mg/dL (40-60); HEMOLYSIS < 15 (0-50); LDL Cholesterol Calculated 53 mg/dL (<100); Potassium 4.6 mmol/L (3.4-5.1); Sodium 141 mmol/L (137-145); Triglycerides 131 mg/dL (35-150)
== END ==
PROVIDERS: Family Provider Family Medicine; PCP Family Medicine; Referring Provider Family Medicine; Visit Provider Family Medicine
DX: E11.9 Type 2 diabetes mellitus without complications (principal)
CPT/HCPCS: 36415; 80053; 80061; 83036

== ENCOUNTER → 2023-12-08 07:35 | Outpatient (CLI) | payer MEDICARE, SELFPAY ==
[2021-02-02 05:26] VITALS: BMI 33.3
[2023-12-08 08:34] LABS: Add Manual Diff / Slide Review NO; Basophils Absolute Auto 0 /uL (0-100); Basophils Percent Auto 0.6 % (0-2); Eosinophils Absolute Auto 200 /uL (0-450); Eosinophils Percent Auto 3.8 % (2-4); Hematocrit 38.4 % (36-46); Hemoglobin 12.8 g/dL (12.0-16.0); Lymphocytes Absolute Auto 1400 /uL (1100-4500); Lymphocytes Percent Auto 32.8 % (25-40); Mean Corpuscular HGB Conc 33.4 % (30-36); Mean Corpuscular Hemoglobin 30.3 PG (26-34); Mean Corpuscular Volume 90.9 fL (80-100); Monocytes Absolute Auto 400 /uL (0-900); Monocytes Percent Auto 8.7 % (3-14); Neutrophils Absolute Auto 2300 /uL (1500-7000); Neutrophils Percent Auto 54.1 % (50-75); Platelet Count 218 X10^3/uL (150-400); Red Blood Cell Count 4.22 X10^6/uL (4.0-5.2); Red Cell Distribution Width 14.6 % (11.6-14.8); White Blood Cell Count 4.2 X10^3/uL (4.5-11.0)
[2023-12-08 08:47] LABS: Alanine Aminotransferase 17 IU/L (<35); Albumin 4.2 g/dL (3.5-5.0); Albumin Globulin Ratio 1.5 (1.0-2.8); Alkaline Phosphatase 92 U/L (38-126); Aspartate Aminotransferase 24 IU/L (14-36); BUN Creatinine Ratio 28.3 (6-22); Bilirubin Total 1.1 mg/dL (0.2-1.3); Blood Urea Nitrogen 28 mg/dL (7-17); Calcium 9.6 mg/dL (8.4-10.2); Carbon Dioxide 25 mmol/L (22-32); Chloride 109 mmol/L (98-107); Estimated Glomerular Filt Rate 58 mL/min (>60); Globulin 2.8 g/dL (1.7-4.1); Glucose 120 mg/dL (80-110); HEMOLYSIS < 15 (0-50); Potassium 4.8 mmol/L (3.4-5.1); Sodium 142 mmol/L (137-145)
[2023-12-08 09:01] LABS: Creatinine Urine Random 104.6 mg/dL
[2023-12-08 09:05] LABS: Microalbumi Creatinin Ratio Ur 36.3 ug/mg CR (<30); Microalbumin Urine Random 3.8 mg/dL (0-1.6)
[2023-12-09 05:36] LABS: x Labcorp Estim. Avg Glu (eAG) 143 mg/dL (.); x Labcorp Hemoglobin A1c 6.6 % (4.8-5.6)
== END ==
LOC: LAB 07:36
PROVIDERS: Family Provider Family Medicine; PCP Family Medicine; Referring Provider Family Medicine; Visit Provider Family Medicine
DX: E11.9 Type 2 diabetes mellitus without complications (principal); I10 Essential (primary) hypertension; E78.2 Mixed hyperlipidemia; I25.10 Atherosclerotic heart disease of native coronary artery without angina pectoris
CPT/HCPCS: 36415; 80053; 82043; 82570; 83036; 85025

== ENCOUNTER → 2024-03-18 11:51 | Outpatient (CLI) | payer MEDICARE, SELFPAY ==
[2021-02-02 05:26] VITALS: BMI 33.3
--- NOTE | 2024-03-18 11:52 | DI.RAD.S_ITS ---
PROCEDURE: XR KNEE RT 3V INDICATIONS: right knee pain, crepitus TECHNIQUE: 3 views of the knee were acquired. COMPARISON: [facility], CR, XR KNEE RT 3V, 09/07/2021, 8:51. FINDINGS: Bones: Azcw-ri-[id number] degenerative changes, particularly the patellofemoral compartment. No acute displaced fracture or dislocation. Patellar enthesopathy Soft tissues: Possible prepatellar soft tissue swelling. Suspect small joint effusion. IMPRESSION: Azrm-vj-[id number] degenerative changes. Possible small joint effusion. If there is high concern for further derangement, consider MRI evaluation. Dictated by: Tashi Bashir M.D. on 03/18/2024 at 14:44 Approved by: Tashi Bashir M.D. on 03/18/2024 at 14:46
== END ==
PROVIDERS: Family Provider Family Medicine; PCP Family Medicine; Referring Provider Family Medicine; Visit Provider Family Medicine
DX: M25.561 Pain in right knee (principal)
CPT/HCPCS: 73562

== ENCOUNTER → 2024-08-05 08:21 | Outpatient (CLI) | payer MEDICARE, SELFPAY ==
[2021-02-02 05:26] VITALS: BMI 33.3
[2024-08-05 10:00] LABS: Hematocrit 35.4 % (36-46); Hemoglobin 12.2 g/dL (12.0-16.0); Mean Corpuscular HGB Conc 34.3 % (30-36); Mean Corpuscular Hemoglobin 32.1 PG (26-34); Mean Corpuscular Volume 93.6 fL (80-100); Platelet Count 226 X10^3/uL (150-400); Red Blood Cell Count 3.79 X10^6/uL (4.0-5.2); Red Cell Distribution Width 13.4 % (11.6-14.8); White Blood Cell Count 5.5 X10^3/uL (4.5-11.0)
[2024-08-05 10:40] LABS: Blood Urea Nitrogen 25 mg/dL (7-17); Calcium 9.6 mg/dL (8.4-10.2); Carbon Dioxide 25 mmol/L (22-32); Chloride 106 mmol/L (98-107); Cholesterol 133 mg/dL (140-199); Estimated Glomerular Filt Rate > 60 mL/min (>60); Glucose 104 mg/dL (80-110); HDL Cholesterol 58 mg/dL (40-60); HEMOLYSIS 19 (0-50); LDL Cholesterol Calculated 47 mg/dL (<100); Potassium 4.6 mmol/L (3.4-5.1); Sodium 137 mmol/L (137-145); Triglycerides 141 mg/dL (35-150)
== END ==
PROVIDERS: Family Provider Family Medicine; PCP Family Medicine; Referring Provider Internal Medicine Cardiovascular Disease; Visit Provider Internal Medicine Cardiovascular Disease
DX: I10 Essential (primary) hypertension (principal)
CPT/HCPCS: 36415; 80048; 80061; 85027

== ENCOUNTER → 2024-12-20 08:22 | Outpatient (CLI) | payer MEDICARE, SELFPAY ==
[2021-02-02 05:26] VITALS: BMI 33.3
[2024-12-20 09:56] LABS: Alanine Aminotransferase 24 IU/L (<35); Albumin 4.5 g/dL (3.5-5.0); Albumin Globulin Ratio 1.7 (1.0-2.8); Alkaline Phosphatase 75 U/L (38-126); Aspartate Aminotransferase 33 IU/L (14-36); BUN Creatinine Ratio 31.7 (6-22); Bilirubin Total 0.8 mg/dL (0.2-1.3); Blood Urea Nitrogen 40 mg/dL (7-17); Calcium 9.9 mg/dL (8.4-10.2); Carbon Dioxide 25 mmol/L (22-32); Chloride 108 mmol/L (98-107); Cholesterol 143 mg/dL (140-199); Estimated Glomerular Filt Rate 43 mL/min (>60); Globulin 2.6 g/dL (1.7-4.1); Glucose 127 mg/dL (80-110); HDL Cholesterol 59 mg/dL (40-60); HEMOLYSIS 20 (0-50); LDL Cholesterol Calculated 62 mg/dL (<100); Potassium 5.3 mmol/L (3.4-5.1); Sodium 141 mmol/L (137-145); Total Protein 7.1 g/dL (6.3-8.2); Triglycerides 112 mg/dL (35-150)
[2024-12-20 13:52] LABS: Creatinine Urine Random 102.46 mg/dL
[2024-12-20 13:59] LABS: Microalbumin Urine Random 4.3 mg/dL (0-1.6)
[2024-12-20 16:46] LABS: Hemoglobin A1C% w Est Avg Glu 5.7 % (4.0-6.0)
== END ==
LOC: LAB 08:24
PROVIDERS: Family Provider Family Medicine; PCP Family Medicine; Referring Provider Family Medicine; Visit Provider Family Medicine
DX: E11.9 Type 2 diabetes mellitus without complications (principal)
CPT/HCPCS: 36415; 80053; 80061; 82043; 82570; 83036

== ENCOUNTER → 2025-01-05 07:54 | Outpatient (CLI) | payer MEDICARE, SELFPAY ==
[2021-02-02 05:26] VITALS: BMI 33.3
[2025-01-05 09:58] LABS: BUN Creatinine Ratio 20.2 (6-22); Blood Urea Nitrogen 23 mg/dL (7-17); Calcium 9.7 mg/dL (8.4-10.2); Carbon Dioxide 23 mmol/L (22-32); Chloride 107 mmol/L (98-107); Estimated Glomerular Filt Rate 49 mL/min (>60); Glucose 129 mg/dL (80-110); HEMOLYSIS < 15 (0-50); Potassium 4.3 mmol/L (3.4-5.1); Sodium 141 mmol/L (137-145)
== END ==
LOC: LAB 07:56
PROVIDERS: Family Provider Family Medicine; PCP Family Medicine; Referring Provider Family Medicine; Visit Provider Family Medicine
DX: R74.8 Abnormal levels of other serum enzymes (principal)
CPT/HCPCS: 36415; 80048

== ENCOUNTER 2025-01-21 16:45 | Emergency (ER) | payer MEDICARE, SELFPAY ==
[2021-02-02 05:26] VITALS: BMI 33.3
[2025-01-21 16:58] VITALS: BP 146/67; PULSE 70; RESP 18; TEMP 36.8; O2SAT 96; BMI 32.4
--- NOTE | 2025-01-21 22:40 | ED.EXTPRO ---
HPI - Extremity Problem General Chief complaint: Extremity Problem,Nontraumatic Stated complaint: sent by PCP, fingers numb, px in neck Time Seen by Provider: 01/21/25 22:17 Source: patient Mode of arrival: Family Vehicle History of Present Illness HPI Narrative: Patient is a 79-year-old female history of hypertension hyperlipidemia diabetes coronary artery disease presenting to day with right finger numbness. She reports that her middle 3 fingers go numb occasionally this has been happening off and on for some time. It lasts less than a minute. Today she also experienced some left-sided neck pain and right finger numbness while watching TV. According to primary care note from 12/23/2024 this is definitely happened to her before most consistent with carpal tunnel syndrome. Patient denies it happening. However she has no arm weakness facial droop numbness tingling weakness or other symptoms. Symptoms have completely resolved now and have not reoccurred while in the ED Related Data Home Medications Medication Instructions Recorded Confirmed atorvastatin 80 mg tablet (Lipitor) 80 mg PO QDAY ##0 05/08/11 12/23/24 fluorometholone 0.1 % eye drp EYE-BOTH 03/18/24 12/23/24 drops,suspension Previous Rx's Medication Instructions Recorded lisinopril 20 mg tablet 20 mg PO DAILY #90 tabs 09/07/21 metoprolol tartrate 25 mg tablet 50 mg (2 x 25 mg) PO BID #120 tabs 11/22/21 rivaroxaban 20 mg tablet (Xarelto) 20 mg PO DAILY #90 tabs 09/18/22 Allergies Allergy/AdvReac Type Severity Reaction Status Date / Time No Known Drug Allergies Allergy Verified 01/21/25 17:06 Patient History Medical History Coronary artery disease Depression Diabetes type 2, controlled Essential hypertension History of myocardial infarction Mixed hyperlipidemia Pre-diabetes Ureteropelvic junction (UPJ) obstruction, right Family History Daughter Hyperlipidemia Social History marital status: number of children: 2 household members: family occupational status: previously employed Smoking Status: Never smoker alcohol intake: never caffeine: No Smoking Status: Never smoker alcohol intake frequency: 0-2 drinks per day Exam Initial Vital Signs Initial Vital Signs: Vital Signs Temperature 98.2 F 01/21/25 16:58 Pulse Rate 70 01/21/25 16:58 Respiratory Rate 18 01/21/25 16:58 Blood Pressure 146/67 H 01/21/25 16:58 Pulse Oximetry 96 01/21/25 16:58 Oxygen Delivery Method Room Air 01/21/25 16:58 GENERAL: Well-appearing, well-nourished and in no acute distress. NECK: Minimal tenderness on left side full flexion-extension no vertebral tenderness CARDIOVASCULAR: peripheral pulses in tact, cap refill <2 sec RESPIRATORY: No respiratory distress, speaks in full sentences without difficulty EXTREMITIES: Normal range of motion, no clubbing or edema. Neurovascularly intact Right upper extremity negative Tinel and Phalen's sign sensation and motor in radial nerve and ulnar intact NEUROLOGICAL: Cranial nerves II through XII grossly intact. Normal gait and speech. SKIN: Warm, dry, no petechiae, no rashes or lesions. Course Vital Signs Vital signs: Vital Signs - 8 hr 01/21/25 16:58 Temperature 98.2 F Pulse Rate 70 Respiratory Rate 18 Blood Pressure 146/67 H Pulse Oximetry 96 Oxygen Delivery Method Room Air MDM - Extremity (Nontraumatic) MDM Narrative Medical decision making narrative: 79-year-old female presenting today with intermittent right finger numbness. It does not extend into her arm this happens off and on multiple times lasting less than 1 minute. This does seem consistent with a carpal tunnel syndrome. Today she was worried about CVA she was left-sided neck pain and right finger numbness. This is not consistent CVA. I do recommend that he had an outpatient MRI of her neck. Giving her a right wrist splint for carpal tunnel. No need for any further emergent workup or evaluation Discharge Plan Departure Patient Disposition: Home Clinical Impression: Acute carpal tunnel syndrome Instructions: Carpal Tunnel Syndrome Activity Restrictions/Additional Instructions: *You have been diagnosed with carpal tunnel syndrome *What to do: At this time wear splint as needed while active and while sleeping. May take off for bathing see if this help I do recommend that you have an outpatient MRI of your neck as well would also consider CT. Please discuss with your primary care provider *Continue to take medications as directed Tylenol Motrin as needed *Follow up with your primary care provider in 2-3 days or call [phone] *Return to ER if you should have increasing arm or leg weakness facial droop difficulty speaking chest pain or any new, worsening or concerning symptoms Prescriptions: No Action lisinopril 20 mg tablet 20 mg PO DAILY Qty: 90 3RF fluorometholone 0.1 % drops,suspension EYE-BOTH atorvastatin [Lipitor] 80 MG tablet 80 mg PO QDAY Qty: 0 metoprolol tartrate 25 mg tablet 50 mg PO BID Qty: 120 5RF Xarelto 20 mg tablet 20 mg PO DAILY Qty: 90 2RF Rx Instructions: must administer with evening meal Referrals: Janna Peralta MD [Primary Care Provider] - Stand Alone Forms: Patient Portal/API/Survey
== END 2025-01-21 23:19 | disposition home or self-care (01) ==
PROVIDERS: Emergency Provider Emergency Medicine; Family Provider Family Medicine; PCP Family Medicine
DX: G56.00 Carpal tunnel syndrome, unspecified upper limb (principal); M54.2 Cervicalgia
CPT/HCPCS: 99282

== ENCOUNTER → 2025-02-17 09:11 | Outpatient (CLI) | payer MEDICARE, SELFPAY ==
[2021-02-02 05:26] VITALS: BMI 33.3
[2025-02-17 11:18] LABS: BUN Creatinine Ratio 19.5 (6-22); Blood Urea Nitrogen 31 mg/dL (7-17); Calcium 9.4 mg/dL (8.4-10.2); Carbon Dioxide 28 mmol/L (22-32); Chloride 106 mmol/L (98-107); Estimated Glomerular Filt Rate 33 mL/min (>60); Glucose 115 mg/dL (70-99); HEMOLYSIS < 15 (0-50); Potassium 5.3 mmol/L (3.4-5.1); Sodium 141 mmol/L (137-145)
== END ==
PROVIDERS: Family Provider Family Medicine; PCP Family Medicine; Referring Provider Family Medicine; Visit Provider Family Medicine
DX: I10 Essential (primary) hypertension (principal); N28.9 Disorder of kidney and ureter, unspecified
CPT/HCPCS: 36415; 80048

== ENCOUNTER → 2025-03-16 06:53 | Outpatient (CLI) | payer MEDICARE, SELFPAY ==
[2021-02-02 05:26] VITALS: BMI 33.3
--- NOTE | 2025-03-16 06:54 | DI.US.S_ITS ---
PROCEDURE: US RENAL COMPLETE INDICATIONS: renal dysfunction TECHNIQUE: Real-time scanning was performed of the kidneys and bladder, with image documentation. COMPARISON: None. FINDINGS: Kidneys: Kidneys are normal in size. Right kidney measures 10.5 cm long; left kidney measures 10.7 cm long. Right renal cortical thickness is 0.7 cm; left renal cortical thickness is 0.5 cm. Diffuse increased renal cortical echogenicity bilaterally with cortical thinning commonly chronic medical renal disease. Moderate right hydronephrosis, proximal hydroureter suggests pattern of obstruction. CT KUB would be useful for further evaluation. Follow-up suggested Bladder: Pre-void bladder volume is 97 mL. Post-void residual is 60 mL. Pre-void images demonstrate no intraluminal masses or stones. On pre-void images, neither of the ureteral jets are noted with color Doppler interrogation. (Of note, ureteral jets may not be detectable in up to 25% of cases due to insufficient differences in specific gravity between ureteral and bladder urine). Miscellaneous: No free pelvic fluid. IMPRESSION: Moderate right hydronephrosis, hydroureter as discussed above. Follow-up suggested. Increased renal cortical echogenicity with cortical thinning bilaterally commonly chronic medical renal disease. Dictated by: Linwood Leon M.D. on 03/16/2025 at 9:40 Approved by: Linwood Leon M.D. on 03/16/2025 at 9:43
== END ==
PROVIDERS: Family Provider Family Medicine; PCP Family Medicine; Referring Provider Family Medicine; Visit Provider Family Medicine
DX: N28.9 Disorder of kidney and ureter, unspecified (principal); N13.30 Unspecified hydronephrosis
CPT/HCPCS: 76770

== ENCOUNTER → 2025-03-27 12:10 | Outpatient (CLI) | payer MEDICARE, SELFPAY ==
[2021-02-02 05:26] VITALS: BMI 33.3
--- NOTE | 2025-03-27 12:11 | DI.CT.S_ITS ---
PROCEDURE: CT KIDNEY URETER BLADDER (KUB) INDICATIONS: rule out blockage ureter TECHNIQUE: Axial sections were acquired from the lung bases to the pubic symphysis. Coronal and sagittal reformats were performed. For radiation dose reduction, the following was used: automated exposure control, adjustment of mA and/or kV according to patient size. COMPARISON: [facility], CT, CT KIDNEY URETER BLADDER (KUB), 05/30/2022, 5:49. FINDINGS: Image quality: Diagnostic. Lower Chest: Calcified subcarinal lymph nodes. Moderate coronary calcifications. Senescent fibrosis in the lung bases. Moderate hiatal hernia. URINARY: Right Kidney: Stable mild right-sided pelvocaliectasis, with a dilated extrarenal pelvis. Transition point at the UPJ. No nephrolithiasis. Right Ureter: No hydroureter. Left Kidney: No stones or hydronephrosis. Left Ureter: No hydroureter. Bladder: Normal wall thickness. No stones. ABDOMEN: Liver: No contour-deforming solid mass. Gallbladder: Contracted. Biliary ducts: No biliary dilation. Pancreas: No ductal dilation. Spleen: Size is within normal limits. Adrenal Glands: No adrenal nodules. Stomach and Bowel: Normal colonic caliber, without significant wall thickening. Colonic diverticulosis without evidence of diverticulitis. Peritoneum: No abnormal intraperitoneal fluid. No free air. Central mesenteric fat stranding without adenopathy, likely indicating a benign process. Ventral Wall: Small umbilical hernia containing fat. Abdominal Nodes: No enlarged retroperitoneal or mesenteric lymph nodes. Vessels: Aorta and inferior vena cava are normal in size. PELVIS: Pelvic Organs: Significant muscle floor weakness, with a large cystocele, vagocele and rectocele. Pelvic Nodes: Unremarkable. Miscellaneous: No inguinal hernias are seen. Bones: Degenerative disc disease of the lumbar spine. [id number]-[id number] spinal canal narrowing at L4-5 due to facet arthrosis and broad-based disc bulge. IMPRESSION: Stable mild right-sided pelvocaliectasis, with moderate dilation of the extrarenal pelvis. There is a transition point at the UPJ. Findings are likely physiologic, given no significant renal cortical thinning compared with 2021, with a similar appearance at that time. Obstructing stricture or mass are considered less likely. Significant pelvic floor dehiscence, with large cystocele, vagocele, and rectocele. Other ancillary findings as above. Dictated by: Rafael Otero M.D. on 03/27/2025 at 23:16 Approved by: Rafael Otero M.D. on 03/27/2025 at 23:19
== END ==
PROVIDERS: Family Provider Family Medicine; PCP Family Medicine; Referring Provider Family Medicine; Visit Provider Family Medicine
DX: N13.5 Crossing vessel and stricture of ureter without hydronephrosis (principal); N81.10 Cystocele, unspecified; N81.6 Rectocele; M51.369 Other intervertebral disc degeneration, lumbar region without mention of lumbar back pain or lower extremity pain
CPT/HCPCS: 74176

== ENCOUNTER 2025-09-17 10:05 | Emergency (ER) | payer MEDICARE, SELFPAY ==
[2021-02-02 05:26] VITALS: BMI 33.3
[2025-09-17 10:21] VITALS: BP 137/69; PULSE 61; RESP 15; TEMP 36.9; O2SAT 97; BMI 31.6
--- NOTE | 2025-09-17 10:28 | DI.US.S_ITS ---
PROCEDURE: US PERIP VENOUS LOW EXTREM RT INDICATIONS: PAIN. HISTORY OF DEEP VEIN THROMBOSIS. USES XARELTO. TECHNIQUE: Real-time imaging, as well as color and pulse Doppler interrogation, were performed of the lower extremity deep veins from the inguinal ligament to the popliteal fossa, with documentation of the visualized calf veins. COMPARISON: [facility], [facility] VENOUS LOW EXTREM RT, 11/19/2021, 15:34. FINDINGS: The common femoral, femoral, popliteal, and the visualized calf veins are normally compressible, and free of intraluminal thrombus. Color and pulse Doppler demonstrate normal phasic intraluminal flow. There is normal augmentation response to distal compression maneuver. IMPRESSION: No findings of lower extremity deep venous thrombosis. Dictated by: Tashi Bashir M.D. on 09/17/2025 at 11:10 Approved by: Tashi Bashir M.D. on 09/17/2025 at 11:11
--- NOTE | 2025-09-17 14:04 | ED_ITS ---
HPI - Extremity Problem General Chief complaint: Extremity Problem,Nontraumatic Stated complaint: rt leg pain Time Seen by Provider: 09/17/25 10:28 Source: patient and family Mode of arrival: Wheelchair History of Present Illness HPI Narrative: 80-year-old female with past medical history as listed below. 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 Took her Xarelto last night. Presenting with acute on chronic right leg pain localized to the popliteal region of the right knee. Denies fevers, chills, nausea, vomiting, diarrhea, abdominal pain, chest pain, shortness of breath, dizziness, headache, and urinary symptoms. Related Data Home Medications ?Medication ?Instructions ?Recorded ?Confirmed atorvastatin 80 mg tablet (Lipitor) 80 mg PO QDAY ##0 05/08/11 06/23/25 fluorometholone 0.1 % eye drp EYE-BOTH 03/18/24 drops,suspension Previous Rx's ?Medication ?Instructions ?Recorded lisinopril 20 mg tablet 20 mg PO DAILY #90 tabs 08/29 metoprolol tartrate 25 mg tablet 50 mg (2 x 25 mg) PO BID #120 tabs 11/22/21 rivaroxaban 20 mg tablet (Xarelto) 20 mg PO DAILY #90 tabs 09/18/22 Allergies Allergy/AdvReac Type Severity Reaction Status Date / Time No Known Drug Allergies Allergy Verified 09/17/25 10:21 Review of Systems Review of Systems ROS Unobtainable: All systems reviewed & are unremarkable except as noted in HPI and below Patient History Medical History Diabetes type 2, controlled Ureteropelvic junction (UPJ) obstruction, right Pre-diabetes Depression Essential hypertension History of myocardial infarction Mixed hyperlipidemia Coronary artery disease Family History Daughter Hyperlipidemia Social History marital status: number of children: 2 household members: family occupational status: previously employed alcohol intake: never caffeine: No Smoking Status: Never smoker alcohol intake frequency: 0-2 drinks per day Exam Initial Vital Signs Initial Vital Signs: Vital Signs Temperature 98.4 F 09/17/25 10:21 Pulse Rate 61 09/17/25 10:21 Respiratory Rate 15 09/17/25 10:21 Blood Pressure 137/69 09/17/25 10:21 Pulse Oximetry 97 09/17/25 10:21 Oxygen Delivery Method Room Air 09/17/25 10:21 Const General: cooperative, healthy appearing, comfortable, well developed and well hydrated Nutritional Appearance: average body habitus [facility] Head: normal to inspection Ears: external ears normal Nose: external nose normal and nares normal Face and sinus: sinuses nontender, face symmetric, ecchymosis not on the right, not on the left and not bilaterally, erythema not on the right, not on the left and not bilaterally and edema not on the right, not on the left and not bilaterally Mouth: lip normal Eyes General: Yes appearance normal, both eyes and all related structures Eyelids: eyelids normal Sclera: sclerae normal Pupils: PERRL Neck Neck: normal visual inspection Resp Effort & Inspection: normal respiratory effort and able to speak in complete sentences Cardio Rate: regular rate Rhythm: regular rhythm Pulses: radial pulses present GI Inspection: normal to inspection and non-distended General: bimanual renal exam normal bilaterally Back/Spine/Pelvis Back: normal to inspection Skin General: no rashes or lesions noted Neuro General: patient alert, patient awake, patient oriented x3, gait normal, moves all extremities, normal light touch, pain and propioception, no focal motor deficits and CN's II-XI intact bilaterally Cognition: normal cognition Speech: speech normal Gait: normal gait Motor: muscle tone normal throughout Sensory Exam: no sensory deficits noted Extrem Other: Bilateral lower extremities with swelling, right lower extremity with a violaceous skin changes which are chronic consistent with venous stasis. Patient with palpable pulses right pulse appears to be very slightly diminished compared to the left. Sensation and strength normal on both sides. Psych Appearance: grossly normal Mental Status: mental status grossly normal Speech and Movement: speech and movement normal Mood: congruent mood Attitude: cooperative Thought Process: normal Thought Content: normal Judgment: judgment good Course Orders Ordered: ED Orders 09/17/25 10:28 [facility] venous low extrem rt Stat Vital Signs Vital signs: Vital Signs - 8 hr 09/17/25 10:21 Temperature 98.4 F Pulse Rate 61 Respiratory Rate 15 Blood Pressure 137/69 Pulse Oximetry 97 Oxygen Delivery Method Room Air MDM - Extremity (Nontraumatic) MDM Narrative Medical decision making narrative: Pt presents w/acute on chronic lower extremity pain concerning for DVT.. Chest x-ray considered for pneumonia, pneumothorax, or congestive heart failure, however deferred due to reassuring hx and physical. EKG, troponin in consideration of arrhythmia, Acute Coronary Syndrome, Acute Myocardial Infarction, however deferred due to reassuring hx and physical. Check labs due to consideration of anemia, electrolyte abnormalities including hypokalemia, hyperkalemia, hyponatremia, hypernatremia, hyperglycemia, hypoglycemia, however deferred due to reassuring hx and physical. No CT chest indicated as I considered but do not clinically suspect aortic dissection/pulmonary embolus. Re-eval. DVT ruled out with negative ultrasound. Arterial obstruction considered however pulses are reassuring although somewhat diminished. Patient likely suffering from acute on chronic claudication secondary to narrowing of the vessels. Patient recommended to start a rigorous exercise regimen and follow up with vascular surgery as soon as possible. Discharge Plan Departure Patient Disposition: Home Clinical Impression: Leg pain, right, Claudication Instructions: Intermittent Claudication (Alternative Therapy), Exercise Appears Beneficial for Patients With Intermittent Claudication Activity Restrictions/Additional Instructions: Please return to ED if you have worsening chest pain, shortness of breath, dizziness, nausea, passing out, or any other concern. Watch your feet for any color changes, coldness, loss of sensation, loss of strength, or any other acute change the ER concerned about. Please exercise as much as possible focusing on exercises of the work your calf and follow up with physical therapy and vascular surgery as soon as possible. Please buy topical arnica or Voltaren uitz-loa-edwuego for pain relief. Prescriptions: No Action lisinopril 20 mg tablet 20 mg PO DAILY Qty: 90 3RF fluorometholone 0.1 % drops,suspension EYE-BOTH atorvastatin [Lipitor] 80 MG tablet 80 mg PO QDAY Qty: 0 metoprolol tartrate 25 mg tablet 50 mg PO BID Qty: 120 5RF Xarelto 20 mg tablet 20 mg PO DAILY Qty: 90 2RF Rx Instructions: must administer with evening meal Referrals: Janna Peralta MD [Primary Care Provider, Family Practice] Stand Alone Forms: Patient Portal/API
[2025-09-17 14:26] VITALS: BP 161/73; PULSE 60; RESP 20; O2SAT 94
== END 2025-09-17 14:36 | disposition home or self-care (01) ==
PROVIDERS: Emergency Provider Emergency Medicine; PCP Family Medicine
DX: M25.561 Pain in right knee (principal); I87.8 Other specified disorders of veins; Z86.718 Personal history of other venous thrombosis and embolism; Z79.01 Long term (current) use of anticoagulants
CPT/HCPCS: 93971; 99281; 99283

== ENCOUNTER → 2025-10-14 08:26 | Outpatient (CLI) | payer MEDICARE, SELFPAY ==
[2021-02-02 05:26] VITALS: BMI 33.3
--- NOTE | 2025-10-14 | DI.US.S_ITS ---
PROCEDURE: US PERIPH VENOUS LOW EXTREM RT INDICATIONS: RIGHT LEG PAIN TECHNIQUE: Real-time imaging, as well as color and pulse Doppler interrogation, were performed of the lower extremity deep veins from the inguinal ligament to the popliteal fossa, with documentation of the visualized calf veins. COMPARISON: [facility], , US PERIP VENOUS LOW EXTREM RT, 09/17/2025, 10:49. FINDINGS: Intraluminal filling defects are noted within distal right common femoral vein, proximal to mid superficial femoral vein and proximal profundus. Intraluminal filling defects are also noted within distal right popliteal vein. The above- mentioned veins show poor compressibility and poor respiratory variation and augmentation. IMPRESSION: Extensive partial venous thrombosis throughout visualized right lower extremity veins as above. Dictated by: Raul Chavez M.D. on 10/14/2025 at 9:47 Approved by: Raul Chavez M.D. on 10/14/2025 at 9:49
== END ==
LOC: US 08:27
PROVIDERS: PCP Family Medicine; Referring Provider Family Medicine; Visit Provider Family Medicine
DX: I82.411 Acute embolism and thrombosis of right femoral vein (principal); I82.431 Acute embolism and thrombosis of right popliteal vein; I73.9 Peripheral vascular disease, unspecified; M79.604 Pain in right leg
CPT/HCPCS: 93971

== ENCOUNTER 2025-10-14 09:25 | Emergency (ER) | payer MEDICARE, SELFPAY ==
[2021-02-02 05:26] VITALS: BMI 33.3
[2025-10-14] VITALS (12 sets, daily range): BP systolic 133–178; BP diastolic 63–83; PULSE 52–65; RESP 13–19; TEMP 37; O2SAT 94–100; BMI 31.6
--- NOTE | 2025-10-14 09:59 | ED.EXTPRO ---
HPI - Extremity Problem General Chief complaint: Extremity Problem,Nontraumatic Stated complaint: sent from DI for DVT Time Seen by Provider: 10/14/25 09:37 Mode of arrival: Wheelchair History of Present Illness HPI Narrative: Patient is a 80-year-old female presenting today from ultrasound with a large right lower leg DVT. Patient has been on Xarelto for the last 6 years. 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 She denies any chest pain shortness of breath or other symptoms. She recently traveled she had some increasing leg pain and had an outpatient ultrasound. The ultrasound showed extensive partial venous thrombus. Distal right common femoral vein, proximal to mid superficial femoral vein and proximal profundus. Related Data Home Medications ?Medication ?Instructions ?Recorded ?Confirmed atorvastatin 80 mg tablet (Lipitor) 80 mg PO QDAY ##0 05/08/11 06/23/25 fluorometholone 0.1 % eye drp EYE-BOTH 03/18/24 06/23/25 drops,suspension Previous Rx's ?Medication ?Instructions ?Recorded lisinopril 20 mg tablet 20 mg PO DAILY #90 tabs 09/07/21 metoprolol tartrate 25 mg tablet 50 mg (2 x 25 mg) PO BID #120 tabs 11/22/21 rivaroxaban 20 mg tablet (Xarelto) 20 mg PO DAILY #90 tabs 09/18/22 diclofenac sodium 1 % topical gel 4 g topical QID #50 grams 09/17/25 (Voltaren Arthritis Pain) apixaban 5 mg tablet (Eliquis) 5 mg PO BID #60 tabs 10/14/25 Allergies Allergy/AdvReac Type Severity Reaction Status Date / Time No Known Drug Allergies Allergy Verified 09/17/25 10:21 Patient History Medical History Diabetes type 2, controlled Ureteropelvic junction (UPJ) obstruction, right Pre-diabetes Depression Essential hypertension History of myocardial infarction Mixed hyperlipidemia Coronary artery disease Family History Daughter Hyperlipidemia Social History marital status: number of children: 2 household members: family occupational status: previously employed alcohol intake: never caffeine: No alcohol intake frequency: 0-2 drinks per day Exam Initial Vital Signs Initial Vital Signs: Vital Signs Temperature 98.6 F 10/14/25 09:33 Pulse Rate 60 10/14/25 09:33 Respiratory Rate 16 10/14/25 09:33 Blood Pressure 168/73 H 10/14/25 09:33 Pulse Oximetry 100 10/14/25 09:33 Oxygen Delivery Method Room Air 10/14/25 09:33 GENERAL: Alert pleasant well-appearing 80-year-old female and in no acute distress. HEENT: Head atraumatic,EOMI, pupils reactive, face symmetric, moist mucous membranes CARDIOVASCULAR: Regular rate and rhythm without murmurs, rubs or gallops. RESPIRATORY: Breath sounds equal bilaterally, no wheezes rales or rhonchi. ABDOMEN: Soft, nontender. Normoactive bowel sounds all 4 quadrants. No guarding or rebound. EXTREMITIES: Normal range of motion, no clubbing or edema. Neurovascularly intact Bilateral lower legs appear equal no significant color change distal pedal pulses felt in the right pedal pulse NEUROLOGICAL: Alert and oriented x4.Normal gait and speech. Cranial nerves II through XII grossly intact. SKIN: Warm, dry, no laceration, no petechiae, no rashes or lesions. Course Orders Ordered: ED Orders 10/14/25 11:51 Urine Culture Stat Urine Microscopic Stat Discontinued Medications Enoxaparin Sodium (Enoxaparin 100 Mg/Ml Syringe) 85 mg 1 mg/kg (85 mg) SUBCUT NOW ONE Stop: 10/14/25 09:40 Last Admin: 10/14/25 10:44 Dose: Not Given Documented By: BERHANE Enoxaparin Sodium (Enoxaparin 100 Mg/Ml Syringe) 130 mg 1.5 mg/kg (130 mg) SUBCUT DAILY [facility] Last Admin: 10/14/25 14:00 Dose: 130 mg Documented By: QUETA Vital Signs Vital signs: Vital Signs - 8 hr 10/14/25 09:33 10/14/25 09:40 10/14/25 09:41 Temperature 98.6 F Pulse Rate 60 65 Respiratory Rate 16 Blood Pressure 168/73 H 178/81 H Pulse Oximetry 100 94 Oxygen Delivery Method Room Air 10/14/25 09:41 10/14/25 10:00 10/14/25 10:00 Temperature Pulse Rate 62 57 L Respiratory Rate 19 Blood Pressure 156/72 H Pulse Oximetry 97 96 Oxygen Delivery Method Room Air 10/14/25 10:30 10/14/25 10:30 10/14/25 11:00 Temperature Pulse Rate 56 L Respiratory Rate 17 Blood Pressure 176/74 H 133/83 Pulse Oximetry 95 Oxygen Delivery Method 10/14/25 11:00 10/14/25 11:30 10/14/25 11:31 Temperature Pulse Rate 54 L 60 Respiratory Rate 13 13 Blood Pressure 157/72 H Pulse Oximetry 95 96 Oxygen Delivery Method Room Air 10/14/25 11:31 10/14/25 11:48 10/14/25 11:48 Temperature Pulse Rate 55 L 62 Respiratory Rate 17 18 Blood Pressure 168/73 H Pulse Oximetry 97 96 Oxygen Delivery Method 10/14/25 12:00 10/14/25 12:00 10/14/25 12:30 Temperature Pulse Rate 53 L Respiratory Rate 17 Blood Pressure 139/63 147/70 H Pulse Oximetry 95 Oxygen Delivery Method 10/14/25 12:30 10/14/25 13:59 Temperature Pulse Rate 52 L 58 L Respiratory Rate 17 17 Blood Pressure 138/71 Pulse Oximetry 95 97 Oxygen Delivery Method Room Air Room Air MDM - Extremity (Nontraumatic) Lab Data Labs: Lab Results 10/14/25 Range/Units 11:51 Urine RBC None seen (0-5/HPF) Urine WBC None seen (0-5/HPF) Ur Squamous Epith Cells 1-5 /hpf (0-5/HPF) Urine Bacteria Many (>30) H (None) Ur Culture Indicated? Specimen cultured Vol Urine Centrifuged 10ml (spun) Urine Dip Bedside Urine Glucose Negative Bedside Urine Bilirubin - Negative Bedside Urine Ketone - Negative Urine Specific Carey 1.020 Bedside Urine Occult Blood - Negative Bedside Urine pH 6.0 Bedside Urine Protein - Negative Bedside Urine Urobilinogen - Negative Bedside Urine Nitrite + Positive Bedside Urine Leukocytes - Negative Esterase Imaging Data US - DVT: Radiologist's Impression: PROCEDURE: US PERIPH VENOUS LOW EXTREM RT INDICATIONS: RIGHT LEG PAIN TECHNIQUE: Real-time imaging, as well as color and pulse Doppler interrogation, were performed of the lower extremity deep veins from the inguinal ligament to the popliteal fossa, with documentation of the visualized calf veins. COMPARISON: [facility], [place], US PERIPH VENOUS LOW EXTREM RT, 09/17/2025, 10:49. FINDINGS: Intraluminal filling defects are noted within distal right common femoral vein, proximal to mid superficial femoral vein and proximal profundus. Intraluminal filling defects are also noted within distal right popliteal vein. The above-mentioned veins show poor compressibility and poor respiratory variation and augmentation. IMPRESSION: Extensive partial venous thrombosis throughout visualized right lower extremity veins as above. Dictated by: Raul Chavez M.D. on 10/14/2025 at 9:47 Approved by: Raul Chavez M.D. on 10/14/2025 at 9:4 [facility] Narrative Medical decision making narrative: Patient 80-year-old female presenting today with extensive right lower extremity DVT. It does not involve the iliacs there is no evidence of limb ischemia or vascular compromise. Skin color is warm and within normal limits no mottling and distal pedal pulse intact. 1150 Dr. Peralta, PCP updated on symptoms test results agrees with consulting Hematology in regards to treatment and manage 100Dr. Otis Saravia Onc, updated on patient's symptoms test results currently on Xarelto with extensive DVT. She has been compliant. The it Eliquis is okay she may still fail that. Lovenox for 5 days with bridging to Coumadin is also appropriate. Long discussion with the patient. She is very resistant to subcutaneous shots. She does not like needles. There is no one to give her shots at home. She understands risks and benefits of taking a similar medication she would like to try it. PCP he is aware and will follow-up in clinic Discharge Plan Departure Patient Disposition: Home Clinical Impression: DVT (deep venous thrombosis) Qualifiers: DVT location: lower extremity Affected thrombotic vein of extremity: femoral Chronicity: acute Laterality: right Qualified Code(s): I82.411 - Acute embolism and thrombosis of right femoral vein Instructions: Deep Vein Thrombosis Activity Restrictions/Additional Instructions: *You have been diagnosed with DVT *What to do: At this time we will change your medication. The medication made still need to be change in you still may need shots. Please call and follow up with Dr. Peralta. Call today to schedule an appoint If you fall while taking blood thinning medication hit your head or have bloody stools return to emergency department immediately for evaluation *Continue to take medications as directed STOP TAKING XARELTO Start taking Eliquis 10 mg o twice a day for 7 days and then 5 mg once a day *Follow up with your primary care provider in 2-3 days or call [phone] *Return to ER if you should have increasing chest pain shortness of breath increasing leg pain swelling or discoloration or any new, worsening or concerning symptoms Prescriptions: New Eliquis 5 mg tablet 5 mg PO BID Qty: 60 0RF Rx Instructions: 10 mg twice a day for 7 days and 5 mg twice daily No Action lisinopril 20 mg tablet 20 mg PO DAILY Qty: 90 3RF fluorometholone 0.1 % drops,suspension EYE-BOTH atorvastatin [Lipitor] 80 MG tablet 80 mg PO QDAY Qty: 0 metoprolol tartrate 25 mg tablet 50 mg PO BID Qty: 120 5RF Xarelto 20 mg tablet 20 mg PO DAILY Qty: 90 2RF Rx Instructions: must administer with evening meal diclofenac sodium [Voltaren Arthritis Pain] 1 % gel 4 g topical QID Qty: 50 0RF Rx Instructions: apply to single knee, ankle, foot; for foot includes sole/toes/top of foot Referrals: Janna Peralta MD [Primary Care Provider, Family Practice] Stand Alone Forms: Patient Portal/API
--- NOTE | 2025-10-14 10:41 | PC.NURSE ---
Rachel had a prescheduled outpatient lower extremity US. Positive for a clot and sent to ER for evaluation. Patient denies any pain in right leg, denies chest pain or SOB. Pulses strong in foot. Swelling very comparable to left leg.
--- NOTE | 2025-10-14 11:52 | PC.NURSE ---
1100: During nurse hand off to this RN and RN Radha are made aware patient wishes to hold on IV and labs until the provider speaks with Hematology/Oncology. Provider Augusta is aware.
[2025-10-14 13:35] LABS: Culture Indicated Urine Specimen Cultured
[2025-10-14] MEDS: ENOXAPARIN 100 MG/ML SYRINGE 130 MG SUBCUT (14:00)
== END 2025-10-14 14:01 | disposition home or self-care (01) ==
PROVIDERS: Emergency Provider Emergency Medicine; PCP Family Medicine
DX: I82.411 Acute embolism and thrombosis of right femoral vein (principal); I82.431 Acute embolism and thrombosis of right popliteal vein; I73.9 Peripheral vascular disease, unspecified; M79.604 Pain in right leg
CPT/HCPCS: 81003; 81015; 87077; 87086; 87186; 93971; 96372; 99282; 99284; J1650